=== PATIENT | female | born 1960 | race Caucasian/White ===

== ENCOUNTER 2018-09-12 10:13 | Inpatient (IN) ==
[2018-09-12 10:28] LABS: ALLEN TEST YES; BE 0.5 mmoll (-3.0-3.0); BLOOD TYPE ARTERIAL; HCO3-(ACT) 25.2 mmoll (20.0-26.0); METHB 1.1 % (0.0-1.5); O2(CT) 17.3 mL/dL (15.0-23.0); O2HB 93.8 % (95.0-99.0); PCO2(98.6) 41 mmHg (35-45); PO2(98.6) 122 mmHg (60-100); SAMPLE BLOOD; SAO2 98.6 % (95.0-100.0)
[2018-09-12 10:29] LABS: MODALITY BI PAP
--- NOTE | 2018-09-12 10:44 | Diag Imaging Result Doc PS360 ---
EXAM: CHEST-1 VIEW HISTORY: sob TECHNIQUE: Chest single view COMPARISON: 10/09/2017 FINDINGS: The lungs are well expanded. The heart is not enlarged. The vessels are distended. There are no infiltrates. No effusion identified. IMPRESSION: Pulmonary edema Electronically signed by Esdras Lares 09/12/2018 10:42 AM
--- NOTE | 2018-09-12 10:45 | EKG Report ---
Test Performed on : 09/12/2018 10:20:09 AM Test Reason : sob Blood Pressure : / mmHG Vent. Rate : 109 BPM Atrial Rate : 109 BPM P-R Int : 158 ms QRS Dur : 102 ms QT Int : 486 ms P-R-T Axes : 090 075 032 degrees QTc Int : 654 ms Sinus tachycardia. Nonspecific ST and T wave abnormality Abnormal ECG When compared with ECG of 09-OCT-2017 08:51, premature supraventricular complexes. are no longer present Vent. rate has increased BY 49 BPM RSR' pattern in V1 is no longer present Non-specific change in ST segment in Lateral leads Nonspecific T wave abnormality now evident in Lateral leads QT has lengthened Unconfirmed Result
[2018-09-12 10:56] LABS: BASO# 0.02 X1000 (0.0-0.2); BASO% 0.1 % (0.0-0.8); EOS# 0.07 X1000 (0.0-0.7); EOS% 0.4 % (0.0-10.0); HEMATOCRIT 40.4 % (37.0-47.0); HEMOGLOBIN 12.9 g/dL (12.0-16.0); IMM GRAN# 0.09 X1000 (0.0-0.04); IMM GRAN% 0.5 % (0.0-0.5); LYMPH% 5.6 % (20.5-51.1); MCH 27.3 PG (27-31); MCHC 31.9 g/dL (33-37); MCV 85.6 FL (81-99); MONO# 0.81 X1000 (0.11-0.59); MONO% 4.5 % (1.7-9.3); MPV 10.6 FL (7.4-10.4); NEUT# 15.88 X1000 (1.4-6.5); NEUT% 88.9 % (42.2-75.2); PLT 303 X1000 (130-400); RBC 4.72 XMIL (4.2-5.4); RDW 16.4 % (11.5-14.5); WBC 17.87 X1000 (4.8-10.8)
[2018-09-12 11:21] LABS: AGAP 14; ALB/GLOB RATIO 1.2; ALBUMIN 3.8 g/dL (3.5-5.0); ALKALINE PHOSPHATASE 109 U/L (32-104); BUN 11 mg/dL (8-22); CALCIUM 9.1 mg/dL (8.8-10.2); CHLORIDE 99 mmol/L (98-107); COSMO 282; CREATININE 0.9 mg/dL (0.5-0.9); ESTIMATED GFR > 60; GLUCOSE 187 mg/dL (70-104); GOT 9 U/L (10-30); GPT 11 U/L (10-36); POTASSIUM 3.7 mmol/L (3.5-5.1); SODIUM 139 mmol/L (136-145); TCO2 26 mmol/L (25-35); TOTAL BILIRUBIN 0.48 mg/dL (0.20-1.00); TOTAL PROTEIN 6.9 g/dL (6.3-8.3)
[2018-09-12 11:23] LABS: EOS 1 % (1-10); LYMPHS 6 % (21-51); MONO 5 % (1-9); SEGS 88 % (42-75)
[2018-09-12 11:49] LABS: URINE SOURCE CATH
[2018-09-12 11:57] LABS: BILIRUBIN URINE NEGATIVE (NEGATIVE); BLOOD URINE NEGATIVE (NEGATIVE); COLOR YELLOW; GLUCOSE URINE NEGATIVE (NEGATIVE); KETONE URINE NEGATIVE (NEGATIVE); LEUKOCYTES URINE NEGATIVE (NEGATIVE); NITRITE URINE NEGATIVE (NEGATIVE); PH URINE 5.5; PROTEIN URINE TRACE mg/dL (NEGATIVE); SP GRAVITY URINE 1.004; TURBIDITY URINE CLEAR (CLEAR); UROBILINOGEN URINE NORMAL (NORMAL)
[2018-09-12 11:58] LABS: UR EPITHELIAL CELLS <10 /HPF (<10); URINE BACTERIA NEGATIVE /HPF; URINE RBC <10 /HPF (<10); URINE WBC <10 /HPF (<10)
[2018-09-12 12:22] LABS: INR 1.03; PROTIME 14.3 Seconds (11.0-16.0)
[2018-09-12] MEDS ORDERED: ROCEPHIN 1 GM in NS 50 ML IV ONE (12:22)
[2018-09-12 12:23] LABS: PTT 28.3 Seconds (22.3-41.8)
[2018-09-12] MEDS ORDERED: LEVAQUIN 500 MG/D5W 500 MG/100 ML IVPB IV ONE (12:40)
[2018-09-12] MEDS ORDERED: LASIX IV ONE (12:56)
--- NOTE | 2018-09-12 12:58 | PROVIDER DOCUMENTATION ---
This chart was entered by Martha Ga Scribe, acting as scribe for Justin Crum MD. HPI-Respiratory General - General Chief Complaint: Shortness of Breath Stated Complaint: difficulty breathing Time Seen by Provider: 09/12/18 10:45 Source: patient Allergies/Adverse Reactions: Patient Allergies Allergy/AdvReac Type Severity Reaction Status Date / Time ESCOBAR Inhibitors Allergy ANAPHYLAXIS Verified 09/12/18 10:57 codeine [Codeine] AdvReac Intermediate NAUSEA/VOMI Verified 09/12/18 10:57 TING ceftriaxone [From Rocephin] AdvReac RASH Verified 09/12/18 12:31 nylon sutures AdvReac RASH Uncoded 09/12/18 10:57 Home Medications: Home Medication List Medication Instructions Recorded Confirmed Last Taken Type Clopidogrel Bisulfate [Plavix] 75 mg PO DAILY 03/05/12 10/10/17 10/10/17 05:00 History Furosemide [Lasix] 40 mg PO DAILY 03/05/12 10/10/17 10/09/17 09:00 History Omeprazole 20 mg PO DAILY@0700 03/05/12 10/09/17 10/10/17 05:00 History Potassium Chloride E.r. [Klor-Con] 10 meq PO DAILY 03/05/12 10/09/17 10/10/17 05:00 History Spironolactone [Aldactone] 25 mg PO DAILY 03/05/12 10/09/17 10/10/17 05:00 History Clonazepam 1 mg PO BID PRN PRN 04/23/14 10/10/17 10/08/17 21:00 History Ranolazine E.r. [Ranexa] 1,000 mg PO BID 04/23/14 10/09/17 10/10/17 05:00 History Glimepiride 2 mg PO DAILY 07/23/16 10/10/17 10/09/17 09:00 History Atorvastatin Calcium 40 mg PO HS 10/09/17 10/09/17 10/09/17 21:00 History Budesonide/Formoterol Fumarate 10.2 gm IH DAILY 10/09/17 10/09/17 10/10/17 05:00 History [Symbicort 160-4.5 Mcg Inhaler] Colesevelam HCl [Welchol] 625 mg PO BID 10/09/17 10/09/17 10/10/17 05:00 History Fexofenadine HCl 180 mg PO HS 10/09/17 10/09/17 10/09/17 21:00 History Gabapentin 2 cap PO DAILY 10/09/17 10/09/17 10/10/17 05:00 History Insulin Lispro [Humalog Kwikpen 0 unit SQ DIRECTED 10/09/17 10/10/17 10/08/17 History U-100] Metoprolol [Lopressor] 100 mg PO BID 10/09/17 10/09/17 10/10/17 05:00 History Nitroglycerin 0.4 mg SL PRN PRN 10/09/17 10/10/17 10/07/17 History Amlodipine [Norvasc] 5 mg PO DAILY #30 tablet 10/10/17 Unknown Rx - History of Present Illness-Resp Nature of Presenting Problem: Patient is a 58 year old female who presents to the ED via EMS with shortness of breath that started 3 days ago. EMS reports patient's O2 sat was 70% on their arrival. Patient denies chest pain. Quality of Pain: reports: tightness Severity in ED: reports: moderate Onset/Duration: reports: 3 days ago Timing: reports: still present, getting worse Cough Quality/Degree: reports: no cough Current Respiratory Medication Therapy: Initiated see nurses note Modifying Factors: improves with: nothing Associated Symptoms: reports: shortness of breath Similar Symptoms Previously?: Yes Recently seen or treated by another doctor?: No Review of Systems - Adult - REVIEW OF SYSTEMS - ADULT ROS:: limited per condition Constitutional: reports: no symptoms reported. denies: chills, fever, fatique Eyes: reports: no symptoms reported Ears, Nose, Mouth & Throat: reports: no symptoms reported Cardiovascular: reports: no symptoms reported. denies: chest pain, irregular heart rate, palpitations Respiratory: reports: see HPI, shortness of breath. denies: cough, wheezing Gastrointestinal: reports: no symptoms reported Genitourinary: reports: no symptoms reported Musculoskeletal: reports: no symptoms reported Integumentary: reports: no symptoms reported Neurological: reports: no symptoms reported Psychiatric: reports: no symptoms reported Endocrine: reports: no symptoms reported Hematologic/Lymphatic: reports: no symptoms reported Allergic/Immunologic: reports: no symptoms reported All Other Systems: Reviewed and Negative Past History - Adult - PAST MEDICAL HISTORY-ADULT Review of Records: reports: Nursing Assessment Review, Medications Reviewed, Social history reviewed & non-contributory. Major Childhood Illnesses: reports: denies history Cardiovascular: reports: cardiac disease (cardiac disorder), HTN, hyperlipidemia , NV Respiratory: reports: bronchitis (chronic), COPD, pneumonia, sleep apnea Gastrointestinal: reports: GERD Obstetrical/Gynecological: reports: denies history Genitourinary: reports: denies history Musculoskeletal: reports: other (bone disease) Neurological: reports: TIA Endocrine/Immune: reports: Diabetes Other Conditions: reports: denies history - PRIOR SURGERIES/PROCEDURES Surgical/Procedure History: reports: hysterectomy, , tonsillectomy, o ther (T & A) - IMMUNIZATION STATUS Childhood Immunizations: NUTD, See Nurse Assessment Flu Vaccine: See Nurse Assessment - FAMILY HISTORY Family History: reviewed, not pertinent - SOCIAL HISTORY Smoking: cigarettes, greater than 1 pack/day Provider spent 3-5 mins advising pt. on dangers of tobacco.: Discussed manners to quit use, and f/u contacts for add'l counseling. Substance Use: denies Physical Exam-General - PHYSICAL EXAM-ADULT Initial Vital Signs Reviewed: Yes - CONSTITUTIONAL General Appearance: alert, no apparent distress, obese. negative: lethargic - RESPIRATORY Respiratory: chest non-tender, lungs clear, normal breath sounds. negative: crackles, stridor - CARDIOVASCULAR Cardiovascular: normal peripheral pulses, tachycardia. negative: systolic murmur - MUSCULOSKELETAL Extremity: other (1 + pitting edema to bilateral lower extremities). negative: deformity, erythema - SKIN Integumentary: normal color, normal turgor, warm/dry. negative: cyanosis, ecchymosis, erythema - NEUROLOGIC Neurologic: grossly normal. negative: aphasia, facial droop - PSYCHIATRIC Psych/Mental Status: normal mood/affect, oriented x 3. negative: anxious - HEART Score HEART Score: History: Slightly Suspicious HEART Score: ECG: Non-Specific Repolarization Disturbance/LBBB/PM HEART Score: Age: 45-65 Years HEART Score: Risk Factors for Atherosclerotic Disease: 1 or 2 Risk Factors HEART Score: Troponin: < or = Normal Limit Total HEART Score:: 3 Progress - PLAN OF CARE/RESULTS Progress/Plan/Lab Results: Vital Signs - 8 hr 09/12/18 10:20 09/12/18 10:21 09/12/18 10:25 Temperature Pulse Rate 149 H Respiratory Rate 32 H Blood Pressure 157/106 O2 Sat by Pulse Oximetry 93 L 95 92 L 09/12/18 10:30 09/12/18 10:35 09/12/18 10:40 Temperature 101.1 F H Pulse Rate 105 H 149 H 108 H Respiratory Rate 28 H 32 H 24 Blood Pressure 157/106 O2 Sat by Pulse Oximetry 98 93 L 99 09/12/18 10:41 09/12/18 10:50 Temperature Pulse Rate 107 H 98 H Respiratory Rate 25 H 22 Blood Pressure 115/85 O2 Sat by Pulse Oximetry 98 97 Laboratory Results - last 24 hr 09/12/18 09/12/18 09/12/18 10:20 10:38 10:38 WBC 17.87 H RBC 4.72 Hgb 12.9 Hct 40.4 MCV 85.6 MCH 27.3 MCHC 31.9 L RDW Std Deviation 16.4 H Plt Count 303 MPV 10.6 H Immature Gran % (Auto) 0.5 Neut % (Auto) 88.9 H Lymph % (Auto) 5.6 L Baker % (Auto) 4.5 Eos % (Auto) 0.4 Baso % (Auto) 0.1 Immature Gran # (Auto) 0.09 H Neut # (Auto) 15.88 H Lymph # (Auto) 1.00 L Baker # (Auto) 0.81 H Eos # (Auto) 0.07 Baso # (Auto) 0.02 Segmented Neutrophils 88 H Lymphocytes 6 L Monocytes 5 Eosinophils 1 PT INR PTT (Actin FS) Specimen Type ARTERIAL Sample Site R RADIAL pH 7.40 pCO2 41 pO2 122 H HCO3 25.2 Base Excess 0.5 Oxyhemoglobin 93.8 L ABG O2 Sat (Calculated) 17.3 ABG O2 Saturation 98.6 ABG Carboxyhemoglobin 3.90 H ABG Methemoglobin 1.1 Josiah Test YES A-a O2 Difference 540.0 Total Hemoglobin 13.0 Lactate 2.00 Blood Gas Modality BI PAP Vent Mode BIPAP FiO2 % 100.0 Inspiratory BiPAP 18.0 Expiratory BiPAP 5.0 Sodium Potassium Chloride Carbon Dioxide Anion Gap BUN Creatinine Estimated GFR/1.73 m2 BUN/Creatinine Ratio Glucose Calculated Osmolality Calcium Total Bilirubin AST ALT Alkaline Phosphatase Creatine Kinase Troponin T < 0.010 [id number]-Iwzcidljdxb Pept Total Protein Albumin Globulin Albumin/Globulin Ratio Plasma Lactate Urine Source Urine Color Urine Turbidity Urine pH Ur Specific [place] Urine Protein Ur Glucose (Stick) Ur Ketones (Stick) Urine Blood Urine Nitrite Urine Bilirubin Urobilinogen Dipstick Urine Leukocytes Urine WBC (Auto) Urine RBC (Auto) U Epithel Cells (Auto) Urine Bacteria (Auto) 09/12/18 09/12/18 09/12/18 10:38 10:38 10:38 WBC RBC Hgb Hct MCV MCH MCHC RDW Std Deviation Plt Count MPV Immature Gran % (Auto) Neut % (Auto) Lymph % (Auto) Baker % (Auto) Eos % (Auto) Baso % (Auto) Immature Gran # (Auto) Neut # (Auto) Lymph # (Auto) Baker # (Auto) Eos # (Auto) Baso # (Auto) Segmented Neutrophils Lymphocytes Monocytes Eosinophils PT INR PTT (Actin FS) Specimen Type Sample Site pH pCO2 pO2 HCO3 Base Excess Oxyhemoglobin ABG O2 Sat (Calculated) ABG O2 Saturation ABG Carboxyhemoglobin ABG Methemoglobin Josiah Test A-a O2 Difference Total Hemoglobin Lactate Blood Gas Modality Vent Mode FiO2 % Inspiratory BiPAP Expiratory BiPAP Sodium 139 Potassium 3.7 Chloride 99 Carbon Dioxide 26 Anion Gap 14 BUN 11 Creatinine 0.9 Estimated GFR/1.73 m2 > 60 BUN/Creatinine Ratio 12 Glucose 187 H Calculated Osmolality 282 Calcium 9.1 Total Bilirubin 0.48 AST 9 L ALT 11 Alkaline Phosphatase 109 H Creatine Kinase 34 Troponin T Swh-Z-Mmtepxlxalo Pept 751 H Total Protein 6.9 Albumin 3.8 Globulin 3.1 Albumin/Globulin Ratio 1.2 Plasma Lactate Urine Source Urine Color Urine Turbidity Urine pH Ur Specific [place] Urine Protein Ur Glucose (Stick) Ur Ketones (Stick) Urine Blood Urine Nitrite Urine Bilirubin Urobilinogen Dipstick Urine Leukocytes Urine WBC (Auto) Urine RBC (Auto) U Epithel Cells (Auto) Urine Bacteria (Auto) 09/12/18 09/12/18 09/12/18 10:38 10:38 11:40 WBC RBC Hgb Hct MCV MCH MCHC RDW Std Deviation Plt Count MPV Immature Gran % (Auto) Neut % (Auto) Lymph % (Auto) Baker % (Auto) Eos % (Auto) Baso % (Auto) Immature Gran # (Auto) Neut # (Auto) Lymph # (Auto) Baker # (Auto) Eos # (Auto) Baso # (Auto) Segmented Neutrophils Lymphocytes Monocytes Eosinophils PT 14.3 INR 1.03 PTT (Actin FS) 28.3 Specimen Type Sample Site pH pCO2 pO2 HCO3 Base Excess Oxyhemoglobin ABG O2 Sat (Calculated) ABG O2 Saturation ABG Carboxyhemoglobin ABG Methemoglobin Josiah Test A-a O2 Difference Total Hemoglobin Lactate Blood Gas Modality Vent Mode FiO2 % Inspiratory BiPAP Expiratory BiPAP Sodium Potassium Chloride Carbon Dioxide Anion Gap BUN Creatinine Estimated GFR/1.73 m2 BUN/Creatinine Ratio Glucose Calculated Osmolality Calcium Total Bilirubin AST ALT Alkaline Phosphatase Creatine Kinase Troponin T Vrj-S-Wzibemwkjij Pept Total Protein Albumin Globulin Albumin/Globulin Ratio Plasma Lactate 2.0 Urine Source CATH Urine Color YELLOW Urine Turbidity CLEAR Urine pH 5.5 Ur Specific [place] 1.004 Urine Protein TRACE A Ur Glucose (Stick) NEGATIVE Ur Ketones (Stick) NEGATIVE Urine Blood NEGATIVE Urine Nitrite NEGATIVE Urine Bilirubin NEGATIVE Urobilinogen Dipstick NORMAL Urine Leukocytes NEGATIVE Urine WBC (Auto) <10 Urine RBC (Auto) <10 U Epithel Cells (Auto) <10 Urine Bacteria (Auto) NEGATIVE Orders Category Date Time Status Cardiac Monitoring DIRECTED Care 09/12/18 11:46 Active [place] Insertion ORDERED Care 09/12/18 11:44 Active IV Insertion ORDERED Care 09/12/18 11:46 Completed Notify MD of + Sepsis Screen NOW Care 09/12/18 11:46 Active Notify Physician As Ordered Care 09/12/18 11:46 Active CHEST-1 VIEW [RAD] Stat Exams 09/12/18 10:14 Completed ABG [RESP] Routine Lab 09/12/18 10:20 Completed BLOOD CULTURE [BLDCUL] Stat Lab 09/12/18 10:38 Results BLOOD CULTURE [BLDCUL] Stat Lab 09/12/18 12:22 Ordered BNP [PRO B-NATRIURETIC PEPTIDE] Stat Lab 09/12/18 10:38 Completed CBC WITH ELECTRONIC DIFF [HEME] Stat Lab 09/12/18 10:38 Completed CK PROFILE [SP CHEM] Stat Lab 09/12/18 10:38 Completed COMPREHENSIVE METABOLIC PANEL [CHEM] Stat Lab 09/12/18 10:38 Completed LACTATE, PLASMA [CHEM] Lab 09/12/18 15:00 Uncollected LACTATE, PLASMA [CHEM] Lab 09/12/18 18:00 Uncollected LACTATE, PLASMA [CHEM] Q3H Lab 09/12/18 10:38 Completed PROTIME WITH INR [COAG] Stat Lab 09/12/18 10:38 Completed PTT [COAG] Stat Lab 09/12/18 10:38 Completed TROPONIN T Stat Lab 09/12/18 10:38 Completed URINALYSIS [URINALYSIS] Stat Lab 09/12/18 11:40 Completed CefTRIAXONE [Rocephin] 1 gm Med 09/12/18 12:22 Discontinued 0.9% Sodium Chloride Inj [Ns] 50 ml IV NOW Furosemide [Lasix] Med 09/12/18 12:56 Once 40 mg IV NOW ONE Levofloxacin 500 mg/D5w [Levaquin 500 mg/D5w] Med 09/12/18 12:40 Active 500 mg in 100 ml IV NOW Oxygen Device Stat Oth 09/12/18 11:46 Active EKG [EKG] Stat Ther 09/12/18 10:13 Draft Result Diagrams: 09/12/18 10:38 09/12/18 10:38 - EKG 1 Time of EKG reading by physician:: 10:20 EKG Read and Signed by:: Justin Crum EKG Interpretation (*Must complete 3 of following elements*): Abnormal Rate: 109 Rhythm: sinus tachycardia ME Interval: normal Comments: nonspecific ST and T wave abnormality. - XRAY 1 XRAY Study: Chest Impression: See EMR Report ( Signed EXAM: CHEST-1 VIEW HISTORY: sob TECHNIQUE: Chest single view COMPARISON: 10/09/2017 FINDINGS: The lungs are well expanded. The heart is not enlarged. The vessels are distended. There are no infiltrates. No effusion identified. IMPRESSION: Pulmonary edema Electronically signed by Esdras Lares 09/12/2018 10:42 AM 09/12/18 1042 Interpreting Physician: Esdras Lares MD Dictated Date/Time: 09/12/18 1041 cc: Justin Crum MD;) - CONSULTS/PCP/HOSPITALIST Notification #1 *Consult/PCP/Hospitalist*: IRA Mayes for Hospitalist Time Discussed: 12:50 Reason/Comments: Dr. Crum consulted with Sugey about patient. Consult Disposition: Will see in ED, Admit Departure - Departure Date of Disposition Decision: 09/12/18 Time of Disposition Decision: 12:51 DIAGNOSIS: CHF (congestive heart failure), Pneumonia Disposition: ADMITTED INPATIENT 09 Certified Medical Emergency: Emergent Condition: Stable Referrals and Follow-Ups: Aldair Galvan MD [Primary Care Provider] - - Critical Care Note This patient required my direct & personal management of CC.: Yes Attestation - Physician/ JEFF Attestation Patient care was provided by Advanced Practice Provider:: No The physician spent face to face time with patient:: Yes Advanced Practice Provider documentation review:: Supervising physician onsite and consulted in the evaluation and care of this patient. The physician did have a face to face encounter with the patient. This chart was documented by the indicated scribe, (Martha Ga Scribe) and accurately reflects the services I performed and decisions made by me, Justin Crum MD, as attested by the provider's signature.
[2018-09-12] MEDS ORDERED: ALLEGRA PO PRN (13:56)
[2018-09-12] MEDS ORDERED: ROCEPHIN 1 GM in NS 50 ML IV SCH (13:56)
[2018-09-12] MEDS ORDERED: LASIX IV SCH (13:56)
[2018-09-12] MEDS ORDERED: NITROGLYCERIN SL PRN (13:56)
[2018-09-12] MEDS ORDERED: TYLENOL PO PRN (13:56)
[2018-09-12] MEDS ORDERED: HUMALOG SUBQ ONE (13:56)
[2018-09-12] MEDS ORDERED: ZOFRAN IV PRN (13:56)
[2018-09-12] MEDS: SOLU-MEDROL IV SCH ×2 (14:20→21:04)
--- NOTE | 2018-09-12 14:43 | HISTORY AND PHYSICAL ---
PRIMARY CARE PHYSICIAN: Dr. Galvan. CHIEF COMPLAINT: Shortness of breath over the past 3 days that had progressively worsened despite her home O2. HISTORY OF PRESENTING ILLNESS: This is a 58-year-old female, who presents to [facility] via EMS with shortness of breath that started 3 days ago and progressively worsened despite her O2. When EMS arrived, they reported that her O2 saturation was 70% on their arrival. When she arrived to the emergency room, she was satting 93% and was placed on BiPAP. Her white blood cell count was noted to be 17.87. Her proBNP was 751. Chest x- ray showed pulmonary edema. She states that she wears O2 at 5 to 6 L via nasal cannula at home, BiPAP during the day as needed and CPAP at night, but she does continue to be a pack-a-day smoker, but has decreased from 2 packs that was noted per her medical record in 2017, but she has been a smoker for approximately 50+ years. So, she will be admitted to [facility] for further evaluation and treatment. PAST MEDICAL HISTORY: CVA, COPD, diabetes type 2, CHF, hypertension and hypothyroidism. PAST SURGICAL HISTORY: , hysterectomy and tonsillectomy. FAMILY HISTORY: Reviewed and noncontributory. SOCIAL HISTORY: She currently lives with family, is a pack a day smoker, and has been a smoker since she was 11 years old, so for about 50 years. Denies any alcohol or illicit drug use. ALLERGIES: ESCOBAR inhibitors, codeine, ceftriaxone, and nylon sutures. HOME MEDICATIONS: She takes Knox 7.5 one p.o. q. 6 hours p.r.n., Lasix 40 mg p.o. p.r.n. will be held, Humalog quick pen sliding scale will be held, Norvasc 5 mg p.o. daily, aspirin 325 mg p.o. daily, Symbicort 160/4.5 mcg inhaler daily, clonazepam 1 mg p.o. b.i.d. p.r.n., Plavix 75 mg p.o. daily, Welchol 625 mg p.o. b.i.d., fexofenadine 180 mg p.o. p.r.n., gabapentin 300 mg 2 capsules p.o. daily, glimepiride 2 mg p.o. daily, Bevespi Aerosphere inhaler 1 puff inhalation daily, Apresoline 25 mg p.o. b.i.d., metformin 500 mg p.o. b.i.d., Lopressor 100 mg p.o. b.i.d., Singulair 10 mg p.o. daily, nitroglycerin 0.4 mg sublingually p.r.n., omeprazole 40 mg p.o. daily, potassium 10 mEq p.o. daily, Ranexa 500 mg p.o. b.i.d., sertraline 50 mg p.o. t.i.d. and Aldactone 25 mg p.o. daily. LABORATORY DATA: Showed a white blood cell count of 17.87, hemoglobin 12.9, hematocrit 40.4, platelets 303. PT and INR of 14.3 and 1.03. ABG with a pH of 7.40, pCO2 of 41, PO2 122, bicarbonate 25.2, and this is on BiPAP. Sodium 139, potassium 3.7, chloride 99, CO2 26, BUN of 11, creatinine 0.9, glucose 187. ProBNP of 751. Troponin was less than 0.010. Plasma lactate of 2. Urinalysis was negative. IMAGING STUDIES: Chest x-ray showed pulmonary edema. EKG showed sinus tachycardia at 109. REVIEW OF SYSTEMS: She denies any fever, chills, blurred vision, dizziness, chest pain. She has had a nonproductive cough, shortness of breath. Denies any abdominal pain, constipation, diarrhea, burning or hurting with urination. PHYSICAL EXAMINATION: VITAL SIGNS: On arrival she had a pulse of 149, respirations were 32, blood pressure 157/106. She was satting 92 to 93 percent on BiPAP. GENERAL: This is a 58-year-old female, who is lying in the bed and answers questions appropriately. HENT: Normocephalic, atraumatic. Normal ENT inspection. Oropharynx and nares are clear. EYES: Pupils are equal, round, reactive to light and accommodation. Extraocular movements are intact. NECK: Normal inspection. Normal range of motion. LUNGS: With decreased breath sounds throughout entire posterior lung anglin. HEART: With regular rate and rhythm. No murmurs, rubs, or gallops. She was noted when she arrived to have 1+ pitting edema to bilateral lower extremities, but currently she has nonpitting edema to bilateral lower extremities. ABDOMEN: Soft, nontender, nondistended. Bowel sounds are present x4 quadrants. MUSCULOSKELETAL: She has 5/5 strength x4 extremities. NEUROLOGICAL: The cranial nerves 2-12 appear grossly intact. Her heart score is noted to be a 3. ASSESSMENT: 1. Acute chronic obstructive pulmonary disease exacerbation. 2. Acute respiratory failure, hypoxemic. 3. An acute congestive heart failure exacerbation. 4. Leukocytosis. 5. Tobacco abuse. PLAN: She is being admitted to the [facility] unit and placed on telemetry. I placed her on a diabetic diet, pattern blood sugars with sliding scale insulin. Placed her on DuoNebs q. 4 hours, Lasix 40 mg IV q. 12 hours, azithromycin 500 mg IV q. 24 hours, Levaquin 500 mg IV q. 24 and she received that first dose in the emergency room, Solu-Medrol 60 mg IV q. 6 hours, and we will wean as she improves. Continue home medications as previously identified. Further orders after seen by attending and will recheck a CBC, BMP in the a.m. Discharge time: 35 minutes Dictated by IRA Jarrell for Robles Rod MD cc: IRA Jarrell MD Akram Haggag, MD [facility]
[2018-09-12] MEDS ORDERED: ZITHROMAX 500 MG/NS 500 MG/250 ML IVPB IV SCH (15:30)
[2018-09-12] MEDS: DUONEB (A & A) INH SCH ×3 (15:47→23:15)
[2018-09-12] MEDS: HUMALOG SUBQ SCH ×2 (16:49→21:00)
[2018-09-12] MEDS ORDERED: ZOLOFT PO SCH (17:00)
[2018-09-12] MEDS ORDERED: APRESOLINE PO SCH (21:00)
[2018-09-12] MEDS ORDERED: GLUCOPHAGE PO SCH (21:00)
[2018-09-12] MEDS: NICODERM PATCH TD SCH (21:03)
[2018-09-12] MEDS: LOPRESSOR PO SCH (21:08)
[2018-09-12] MEDS: RANEXA PO SCH (21:54)
[2018-09-12] MEDS: WELCHOL PO SCH (21:55)
[2018-09-12] MEDS: NEURONTIN PO SCH (21:55)
[2018-09-13] MEDS: HUMALOG SUBQ SCH ×5 (01:12→22:38)
[2018-09-13] MEDS: SOLU-MEDROL IV SCH ×3 (01:13→22:39)
[2018-09-13] MEDS: KLONOPIN PO PRN ×2 (01:34→13:54)
[2018-09-13] MEDS: DUONEB (A & A) INH SCH ×6 (03:47→23:47)
[2018-09-13] MEDS ORDERED: LASIX IV SCH (06:00)
[2018-09-13 06:05] LABS: BASO# 0.01 X1000 (0.0-0.2); BASO% 0.1 % (0.0-0.8); HEMATOCRIT 37.1 % (37.0-47.0); HEMOGLOBIN 11.6 g/dL (12.0-16.0); IMM GRAN# 0.03 X1000 (0.0-0.04); IMM GRAN% 0.2 % (0.0-0.5); LYMPH% 5.8 % (20.5-51.1); MCH 26.9 PG (27-31); MCHC 31.3 g/dL (33-37); MCV 86.1 FL (81-99); MONO# 0.14 X1000 (0.11-0.59); MONO% 1.2 % (1.7-9.3); MPV 10.5 FL (7.4-10.4); NEUT# 11.28 X1000 (1.4-6.5); NEUT% 92.7 % (42.2-75.2); PLT 270 X1000 (130-400); RBC 4.31 XMIL (4.2-5.4); RDW 16.1 % (11.5-14.5); WBC 12.16 X1000 (4.8-10.8)
[2018-09-13] MEDS: PRILOSEC PO SCH (06:24)
[2018-09-13 06:42] LABS: CALCIUM 8.9 mg/dL (8.8-10.2); CREATININE 1.2 mg/dL (0.5-0.9); POTASSIUM 4.1 mmol/L (3.5-5.1)
[2018-09-13 06:59] LABS: LYMPHS 8 % (21-51); SEGS 92 % (42-75)
[2018-09-13] MEDS ORDERED: LANTUS INSULIN SUBQ ONE (08:00)
--- NOTE | 2018-09-13 08:01 | ECHO REPORT ---
ORDER DATE: 09/12/2018 INTERPRETING PHYSICIAN: Dr. Hawkins REQUESTING PHYSICIAN: Emergency Room Department CLINICAL INDICATIONS: This is a 58-year-old female with CHF exacerbation suspected. Optison was added to the study to opacify the left ventricular chamber. This study was very difficult. M-Mode measurements could not be obtained. M-MODE MEASUREMENTS: Right ventricle: cm. Left ventricle end diastole: cm. Left ventricle end systole: cm. Posterior wall: cm. Interventricular septum: cm. Left atrium: cm. Aortic root: cm. SUMMARY OF 2-DIMENSIONAL IMAGIN. The left ventricle probably has normal function. I believe there is paradoxical contractility of the interventricular septum. 2. The right ventricle is probably enlarged, and I suspect that the pulmonary systolic pressure is significantly elevated. There is a prominent epicardial fat pad. 3. With contrast, the ejection fraction of the left ventricle is probably in the order of 65% to 70%. 4. The mitral valve shows a Doppler pattern that is unremarkable. The E/A ratio is 0.9. 5. The aortic valve also has an unremarkable Doppler pattern. 6. There is probably no evidence of aortic stenosis. 7. The Doppler pattern of the tricuspid valve suggests that the pulmonary systolic pressure is elevated at least 77 mmHg. 8. Inferior vena cava is dilated. CONCLUSIONS: 1. In summary, this study was really very difficult. The left ventricular systolic function is probably hyperdynamic. There is paradoxical contractility of the interventricular septum, probably related to pulmonary hypertension and enlargement of the right ventricle. 2. There is moderate concentric LVH. 3. The mitral and aortic valves are probable unremarkable. 4. Please evaluate this patient for acute pulmonary embolism and acute respiratory decompensation from noncardiac causes. cc: MD Amber Bingham CRNP
--- NOTE | 2018-09-13 08:06 | PROGRESS NOTE ---
DATE: 09/13/2018 SUBJECTIVE: This patient is still using the BiPAP machine. She is still short of breath and tired. We have a negative balance of 4.8 L. The creatinine increased from 0.9 to 1.2, but this seems to be her baseline. I have decreased the dose of the furosemide from 40 twice a day to 40 daily. White blood cell decreased from 17 to 12, and the blood sugar has been in the 300s so I will start this patient on long-acting insulin and sliding scale insulin. OBJECTIVE: Vital Signs: Temperature 96.5 degrees, pulse 60, respiratory rate 24, blood pressure 89/57, and oxygen saturation 96 on the BiPAP machine. This is at 4:00 in the morning. HEENT: Head normocephalic. No trauma. PERRLA. Neck: Supple. I can't see JVD because of her neck size. Central trachea. Chest: Decreased breath sounds globally. Prolonged expiratory phase with some crepitus at the bases. I do not hear any wheezing today. Abdomen: Soft. Obese. Protuberant. Nontender. Nondistended. No hepatosplenomegaly. Extremities: Trace pedal edema. No clubbing. No cyanosis. Neurological: The patient is alert and oriented x3. No focal deficits. LABORATORY: WBC 12.1, hemoglobin 11.6, hematocrit 37.1, and platelets 270,000. Sodium 133, potassium 4.1, chloride 96, bicarbonate 26, BUN 20, creatinine 1.2 glucose 352, and calcium 8.9. ASSESSMENT AND PLAN: 1. COPD exacerbation. This patient has been placed on the BiPAP machine, pending ABGs today and x-ray. I have consulted Pulmonary Department. This patient is receiving steroids, which I have decreased from 60 q.6 hours to 40 q. 12 hours. Probably tomorrow, I will decrease it even more. She has no wheezing today. Pulmonary Department has been consulted. We will continue with the same management. 2. Acute on chronic hypoxemic respiratory failure. This patient has been getting oxygen at home. For now, we will continue with the same management per #1. 3. Possible acute congestive heart failure exacerbation, likely diastolic. Pending echocardiogram. We have a negative balance of 4.8 L. She had pulmonary edema yesterday, pending x-ray today. I have decreased the frequency of the Lasix. 4. Leukocytosis. This patient has been placed on antibiotics. The leukocyte count decreased from 17 to 12. We will continue with the same treatment. 5. Tobacco abuse. This patient has been highly advised against tobacco use. I will continue with daily cessation education. Currently, she is still smoking. 6. Morbid obesity with a body mass index of 46.2, aware. Diet and exercise/physical activity has been discussed. 7. Type 2 diabetes. I will ask for a hemoglobin A1c. Her blood sugar increased to the 300s, so I will put this patient on long-acting insulin while she is on steroids which I have decreased. CRITICAL CARE TIME: 35 minutes. cc: Robles Rod MD
--- NOTE | 2018-09-13 08:29 | Diag Imaging Result Doc PS360 ---
CHEST-PORTABLE - 09/13/2018 INDICATION: SOB COMPARISON: 09/12/2018 FINDINGS: Stable cardiomegaly and pulmonary vascular congestion. There is probably pulmonary artery hypertension. There is some stable minimal infiltrate or atelectasis in the lung bases, at the lateral costophrenic angles. IMPRESSION: No change from prior exams. Electronically signed by Julio Mathew 09/13/2018 8:26 AM
[2018-09-13 08:55] LABS: ALLEN TEST YES; BLOOD TYPE ARTERIAL; HCO3-(ACT) 25.6 mmoll (20.0-26.0); METHB 0.9 % (0.0-1.5); O2(CT) 16.4 mL/dL (15.0-23.0); O2HB 93.3 % (95.0-99.0); PO2(98.6) 74 mmHg (60-100); SAMPLE BLOOD; SAO2 96.1 % (95.0-100.0); THB 12.5 g/dL (11.5-17.4); pH(98.6) 7.34 (7.35-7.45)
[2018-09-13 08:58] LABS: MODALITY BI PAP; PCO2(98.6) 51 mmHg (35-45)
[2018-09-13] MEDS ORDERED: NEURONTIN PO SCH (09:00)
[2018-09-13] MEDS ORDERED: NORVASC PO SCH (09:00)
[2018-09-13] MEDS: SYMBICORT 160/4.5 MICROGM INHALER INH SCH (09:00)
[2018-09-13] MEDS: ZOLOFT PO SCH (09:59)
[2018-09-13] MEDS: AMARYL PO SCH (10:00)
[2018-09-13] MEDS: LOPRESSOR PO SCH ×2 (10:00→22:38)
[2018-09-13] MEDS: ASPIRIN PO SCH (10:00)
[2018-09-13] MEDS: KLOR-CON PO SCH (10:00)
[2018-09-13] MEDS: SINGULAIR PO SCH (10:00)
[2018-09-13] MEDS: RANEXA PO SCH ×2 (10:00→22:39)
[2018-09-13] MEDS: PLAVIX PO SCH (10:00)
[2018-09-13] MEDS: WELCHOL PO SCH ×2 (10:00→22:39)
[2018-09-13] MEDS: ALDACTONE PO SCH (10:01)
[2018-09-13] MEDS: PATIENT'S OWN MED INH SCH (10:06)
[2018-09-13] MEDS: LASIX IV SCH (10:13)
[2018-09-13] MEDS: LEVAQUIN 500 MG/D5W 500 MG/100 ML IVPB IV SCH (13:53)
--- NOTE | 2018-09-13 20:51 | CONSULTATION ---
DATE OF CONSULTATION: 09/13/2018 CHIEF COMPLAINT: Shortness of breath, respiratory failure. HISTORY OF PRESENT ILLNESS: This is a 58-year-old female who has had worsening shortness of breath over the past few days. Her oxygen has been desaturating into the 70s despite using supplemental O2. Recent chest x-ray revealed stable cardiomegaly and pulmonary vascular congestion; stable minimal infiltration or atelectasis in the lung bases. REVIEW OF SYSTEMS: A 10-point review of systems was conducted and the pertinence is listed within the HPI, otherwise noncontributory. PAST MEDICAL HISTORY: CVA, COPD, diabetes type 2, congestive heart failure, hypertension, hypothyroidism. PAST SURGICAL HISTORY: , hysterectomy and tonsillectomy. FAMILY HISTORY: Noncontributory. SOCIAL HISTORY: Lives with family. [place]-ide smoker, has smoked for approximately 50 years. Denies alcohol or illicit drug use. ALLERGIES: ESCOBAR inhibitors, codeine, ceftriaxone and nylon sutures. MEDICATIONS: Please see home reconciliation list. LABORATORY DATA: White blood cells 12.16, red blood cells 4.31, hemoglobin 11.6, hematocrit 37.1. PH 7.34, pCO2 is 51, pO2 is 74, HCO3 is 25.6, base excess 1.0, oxyhemoglobin 93.3. Sodium 133, potassium 4.1, chloride 96, carbon dioxide 26, BUN 20, creatinine 1.2, glucose 352. DIAGNOSTIC DATA: As mentioned in the HPI. PHYSICAL EXAMINATION: Vital signs: O2 saturation 99% with venturi mask at 50% oxygen flow rate. Temperature is 97 degrees, pulse rate 52, respiratory rate 18, blood pressure 131/59. General: This is a 58-year-old obese female sitting up in bed, with family at bedside. Appears to be in no acute distress at the present time, with O2 per venturi mass in place at 50% flow rate. HEENT: Head is atraumatic, normocephalic. Pupils equal, round and reactive. Mucous membranes pink and moist. Neck is supple. Respiratory: Decreased breath sounds throughout entire lung anglin. Nonlabored. Cardiovascular: Regular rate and rhythm. No murmurs, rubs or gallops. Nonpitting edema in the extremities bilaterally. Abdomen soft, nontender, nondistended. Bowel sounds present in all 4 quadrants. Neurological: Alert and oriented x3. ASSESSMENT AND PLAN: 1. Chronic obstructive pulmonary disease exacerbation. Will continue bronchodilators and steroids 2.Obstructive sleep apnea- She has been placed on a bilevel positive airway pressure machine 3. Baymr-gv-ehvonjl hypoxemic respiratory failure. Continue oxygen. 4. Acute congestive heart failure exacerbation. She is receiving Lasix and has an echocardiogram scheduled. 5. Leukocytosis. Continue antibiotics. 6. Morbid obesity- aware Dictated by IRA Grove for Abdelrahman Recinos MD cc: IRA Grove MD [facility]
[2018-09-13] MEDS: NICODERM PATCH TD SCH (22:39)
[2018-09-13] MEDS: NEURONTIN PO SCH (22:39)
[2018-09-14] MEDS: HUMALOG SUBQ SCH ×6 (01:05→21:01)
[2018-09-14 03:28] LABS: ALLEN TEST YES; BE 2.1 mmoll (-3.0-3.0); BLOOD TYPE ARTERIAL; HCO3-(ACT) 26.6 mmoll (20.0-26.0); METHB 0.6 % (0.0-1.5); O2(CT) 14.5 mL/dL (15.0-23.0); O2HB 96.9 % (95.0-99.0); PO2(98.6) 107 mmHg (60-100); SAMPLE BLOOD; SAO2 99.9 % (95.0-100.0); THB 10.5 g/dL (11.5-17.4); pH(98.6) 7.34 (7.35-7.45)
[2018-09-14 03:31] LABS: MODALITY BI PAP; PCO2(98.6) 53 mmHg (35-45)
[2018-09-14] MEDS: DUONEB (A & A) INH SCH ×6 (03:35→23:10)
[2018-09-14 05:54] LABS: HEMATOCRIT 36.3 % (37.0-47.0); HEMOGLOBIN 11.3 g/dL (12.0-16.0); HEMOGLOBIN A1C 9.5 % (4.8-6.0); IMM GRAN# 0.07 X1000 (0.0-0.04); IMM GRAN% 0.4 % (0.0-0.5); LYMPH% 5.4 % (20.5-51.1); MCH 26.7 PG (27-31); MCHC 31.1 g/dL (33-37); MCV 85.8 FL (81-99); MONO# 0.64 X1000 (0.11-0.59); MONO% 3.8 % (1.7-9.3); MPV 10.8 FL (7.4-10.4); NEUT# 15.18 X1000 (1.4-6.5); NEUT% 90.4 % (42.2-75.2); PLT 294 X1000 (130-400); RBC 4.23 XMIL (4.2-5.4); RDW 15.9 % (11.5-14.5); WBC 16.79 X1000 (4.8-10.8)
[2018-09-14 06:25] LABS: ALB/GLOB RATIO 0.9; ALBUMIN 3.4 g/dL (3.5-5.0); CALCIUM 9.4 mg/dL (8.8-10.2); CREATININE 1.4 mg/dL (0.5-0.9); POTASSIUM 4.4 mmol/L (3.5-5.1); TOTAL BILIRUBIN 0.31 mg/dL (0.20-1.00)
[2018-09-14] MEDS: PRILOSEC PO SCH (06:51)
--- NOTE | 2018-09-14 07:51 | Diag Imaging Result Doc PS360 ---
EXAM: CHEST-PORTABLE INDICATION: dyspnea TECHNIQUE: One view COMPARISON: 09/13/2018 FINDINGS: There is stable pulmonary venous congestion and mild basilar atelectasis. No new consolidation is identified. Cardiac silhouette is stable. IMPRESSION: Stable chest. Electronically signed by Lenard Noguera 09/14/2018 7:49 AM
[2018-09-14] MEDS: RANEXA PO SCH ×2 (08:21→21:01)
[2018-09-14] MEDS: ALDACTONE PO SCH (08:22)
[2018-09-14] MEDS: PATIENT'S OWN MED INH SCH (08:22)
[2018-09-14] MEDS: PLAVIX PO SCH (08:22)
[2018-09-14] MEDS: KLOR-CON PO SCH (08:22)
[2018-09-14] MEDS: SINGULAIR PO SCH (08:22)
[2018-09-14] MEDS: WELCHOL PO SCH ×2 (08:22→21:01)
[2018-09-14] MEDS: SOLU-MEDROL IV SCH ×2 (08:22→21:01)
[2018-09-14] MEDS: ZOLOFT PO SCH (08:22)
[2018-09-14] MEDS: ASPIRIN PO SCH (08:22)
[2018-09-14] MEDS: AMARYL PO SCH (08:22)
[2018-09-14] MEDS: LOPRESSOR PO SCH ×2 (08:23→21:01)
--- NOTE | 2018-09-14 08:34 | PROGRESS NOTE ---
DATE: 09/14/2018 SUBJECTIVE: This patient is still using the BiPAP machine. She is still short of breath, but she seems to be feeling better, we have a negative balance of 6.1 L. The BUN and creatinine increased a little bit more so I will hold for now the Lasix IV 40 mg daily to see how she does, chest x-ray looks stable, she does have some crepitus and some rales at the bases, echocardiogram showed a pulmonary systolic pressure of at least 77 mmHg and there is a moderate concentric left ventricular hypertrophy with an ejection fraction around 65 to 70 percent, likely this patient has diastolic heart failure. They also recommended to evaluate this patient for an acute pulmonary embolism, and given her kidney dysfunction. I will ask for a V/Q scan when possible. Dr. Tomasz Soliman is her float phlebotomist, I will get Cardiology evaluation for the CHF exacerbation and as per the patient. Apparently, she has a history of atrial fibrillation. OBJECTIVE: Vital Signs: Temperature 98.3 degrees, pulse 56, respiratory rate 17, blood pressure 92/52, oxygen saturation 98 on 75% oxygen flow. HEENT: Head normocephalic. No trauma. PERRLA. Neck: Supple. I cannot see JVD because of her neck size. Central trachea. Chest: Decreased breath sounds globally. Prolonged expiratory phase. Some crepitus at the bases, probably some rales as well. Abdomen: Soft, obese, protuberant. Nontender, nondistended. No hepatosplenomegaly. Extremities: Trace pedal edema. No clubbing. No cyanosis. Neurological: The patient is alert and oriented x3. No focal neurological deficits. LABORATORY DATA: WBC 16.7, hemoglobin 11.3, hematocrit 36.3, and platelets 294,000. pCO2 53, sodium 138, potassium 4.4, chloride 99, bicarbonate 29, BUN 31, creatinine 1.4, glucose 251. Hemoglobin A1c 9.5. Albumin 3.4. ASSESSMENT AND PLAN: 1. Chronic obstructive pulmonary disease exacerbation. This patient has been placed on the BiPAP machine, her pCO2 still elevated, they have increased the oxygen flow from 50 to 75. Pulmonary Department following this patient. 2. Acute on chronic hypoxemic and hypercarbic respiratory failure: This patient has been getting oxygen at home. For now, we will continue with same management per #1. 3. Likely diastolic heart failure exacerbation. She does have pulmonary hypertension. We have a negative balance of 6.1 L. I will hold the Lasix for today because of her acute kidney injury on chronic kidney disease, and I will continue to monitor. Chest x-ray looks stable. 4. Leukocytosis. This patient has been placed on antibiotics and also steroids which I have decreased in frequency. 5. Tobacco abuse. This patient has been highly advised against tobacco use. I will continue with daily cessation education. Currently, she is still smoking. 6. Morbid obesity with a body mass index of 46.2, aware. Diet and exercise has been discussed. 7. Type 2 diabetes, uncontrolled. I have placed this patient on Lantus 20, hemoglobin A1c is 9.5. I will continue with sliding scale insulin and pattern blood sugar. 8. Likely acute on chronic kidney disease. For today, I will hold her Lasix, and I will continue her Lasix probably tomorrow depending on the lab work. 9. We did an echocardiogram that showed a left ventricular hypertrophy with preserved ejection fraction, she does have some diastolic issues due to her increased pulmonary pressure. It has been recommended to rule out pulmonary embolism. I have requested a V/Q scan that probably will be done on Sunday, I will follow recommendations. cc: Robles Rod MD
[2018-09-14] MEDS: SYMBICORT 160/4.5 MICROGM INHALER INH SCH (08:36)
[2018-09-14] MEDS ORDERED: LANTUS INSULIN SUBQ SCH (09:00)
[2018-09-14] MEDS: LEVAQUIN 500 MG/D5W 500 MG/100 ML IVPB IV SCH (14:51)
--- NOTE | 2018-09-14 18:28 | CONSULTATION ---
DATE OF CONSULTATION: 09/14/2018 IMPRESSION: 1. Acute on chronic hypoxemic respiratory failure. 2. Acute on chronic congestive heart failure predominantly right-sided heart failure probably related to cor pulmonale and pulmonary hypertension as suggested by echocardiography. 3. Severe chronic obstructive pulmonary disease requiring chronic home oxygen. 4. Morbid obesity. 5. Obstructive sleep apnea. 6. Chronic ongoing cigarette use at a rate of 1 pack of cigarettes per day. 7. Atherosclerotic coronary disease with chronic right coronary artery occlusion. Last cardiac catheterization study was performed last year. She continues without angina. 8. Type 2 diabetes mellitus. 9. Hypertension. RECOMMENDATIONS: 1. Agree with recent diuresis. She does not presently appear to show any residual volume excess by exam. 2. Aggressively treat for COPD exacerbation and supplement oxygen as well as utilize BiPAP at night as you are doing. 3. The patient strongly advised to discontinue cigarette use. Agree with nicotine patch. HISTORY: This 58-year-old white female with past history of severe COPD, morbid obesity, obstructive sleep apnea, recurrent episodes of CHF probably right-sided in the setting of pulmonary hypertension, atherosclerotic coronary disease, hypertension, and type 2 diabetes mellitus was admitted with progressive dyspnea symptoms and hypoxemia despite home oxygen. She reports a 3-day history of progressive shortness of breath prior to hospitalization. Oxygen saturations were diminished despite home oxygen at 5 to 6 L per minute. She came to the emergency room by EMS and was found to be significantly hypoxemic. Chest x-ray was difficult to interpret given her morbid obesity. There is suggestion of pulmonary congestion. She has been treated with supplemental oxygen, BiPAP and corticosteroids. She has also been diuresed with intravenous Lasix. Echocardiography demonstrated normal left ventricular ejection fraction. Right ventricular enlargement and abnormal septal wall motion was described as well as significant pulmonary hypertension. Inferior vena cava was dilated suggesting elevated central venous pressure at the time she was admitted. She reports feeling some improvement. PAST MEDICAL HISTORY: 1. Severe COPD requiring chronic oxygen. 2. Morbid obesity. 3. Obstructive sleep apnea. 4. Atherosclerotic coronary disease with chronic right coronary artery occlusion with well- established collaterals. Last cardiac catheterization in 2018. 5. Hypertension. 6. Hypothyroidism. 7. Type 2 diabetes mellitus. 8. Previous cerebrovascular accident. PAST SURGICAL HISTORY: Includes section, hysterectomy, tonsillectomy. ALLERGIES: She was multiple drug allergies and intolerances including ESCOBAR inhibitors, codeine and ceftriaxone. MEDICATIONS PRIOR TO ADMISSION: As listed. SOCIAL HISTORY: She lives with family. Smokes 1 pack of cigarettes per day and has smoked since she was age 11. She does not use alcohol. FAMILY HISTORY: Positive for coronary disease. REVIEW OF SYSTEMS: Pulmonary: Noteworthy for progressive dyspnea. There has been no orthopnea. Gastrointestinal: Noncontributory. Constitutional: Noncontributory. Remainder review of systems negative/noncontributory beyond history of present illness with 14 total systems reviewed. PHYSICAL EXAMINATION: General: This is a morbidly obese, older middle-aged white female in no distress on supplemental oxygen per mask. Oxygen saturation 93 to 94 percent, blood pressure 103/61, heart rate 50 and regular with ECG monitor showing sinus bradycardia. HEENT: Extraocular movements appear intact. Mucous membranes are moist. Neck: Supple. Jugular venous distention suggests upper normal central venous pressure. Chest: Auscultation of the chest reveals few inspiratory crackles in the bases bilaterally. Cardiac Exam: Reveals a regular rate and rhythm without appreciable murmur or gallop. Abdomen: Obese, soft with normal bowel sounds. Extremities: Without edema. Neurologic: Reveals her to be alert and fully oriented. Speech is fluent. She moves all 4 extremities equally well. DATA: A 12-lead EKG obtained on admission demonstrates sinus tachycardia and nonspecific ST and T- wave abnormality. Baseline artifact present. LABORATORY DATA: Includes a white blood cell count 16.79, hematocrit 36.3, hemoglobin 11.3, platelet count 294,000. Arterial blood gas with a pH of 7.34, pCO2 53, PO2 107 on BiPAP. Sodium 138, potassium 4.4, chloride 99, carbon dioxide 29, BUN 31 creatinine 1.4 (admission BUN 11 with a creatinine 0.9). Glucose 251, albumin 3.4. cc: Yaron Kwan MD
[2018-09-14] MEDS: NEURONTIN PO SCH (21:01)
[2018-09-14] MEDS: NICODERM PATCH TD SCH (21:01)
[2018-09-14] MEDS: KLONOPIN PO PRN (21:12)
[2018-09-15] MEDS: DUONEB (A & A) INH SCH ×5 (03:23→19:10)
[2018-09-15 04:39] LABS: ALLEN TEST YES; BE 1.2 mmoll (-3.0-3.0); BLOOD TYPE ARTERIAL; HCO3-(ACT) 25.7 mmoll (20.0-26.0); METHB 0.7 % (0.0-1.5); O2(CT) 13.1 mL/dL (15.0-23.0); PO2(98.6) 56 mmHg (60-100); SAMPLE BLOOD; SAO2 90.3 % (95.0-100.0); THB 10.5 g/dL (11.5-17.4)
[2018-09-15 04:41] LABS: MODALITY VENTIMASK; O2HB 88.5 % (95.0-99.0)
[2018-09-15 04:51] LABS: PCO2(98.6) 58 mmHg (35-45)
[2018-09-15 05:54] LABS: BASO# 0.01 X1000 (0.0-0.2); BASO% 0.1 % (0.0-0.8); HEMATOCRIT 38.4 % (37.0-47.0); HEMOGLOBIN 11.9 g/dL (12.0-16.0); IMM GRAN# 0.12 X1000 (0.0-0.04); IMM GRAN% 0.7 % (0.0-0.5); LYMPH# 0.75 X1000 (1.2-3.4); LYMPH% 4.4 % (20.5-51.1); MCH 27.1 PG (27-31); MCV 87.5 FL (81-99); MONO# 0.48 X1000 (0.11-0.59); MONO% 2.8 % (1.7-9.3); MPV 10.9 FL (7.4-10.4); NEUT# 15.74 X1000 (1.4-6.5); PLT 283 X1000 (130-400); RBC 4.39 XMIL (4.2-5.4)
[2018-09-15] MEDS: PRILOSEC PO SCH (06:13)
[2018-09-15] MEDS: HUMALOG SUBQ SCH ×5 (06:14→20:01)
[2018-09-15] MEDS: LOPRESSOR PO SCH ×4 (06:14→20:01)
[2018-09-15 06:15] LABS: CREATININE 1.6 mg/dL (0.5-0.9)
--- NOTE | 2018-09-15 08:13 | Diag Imaging Result Doc PS360 ---
EXAM: CHEST-PORTABLE INDICATION: dyspnea TECHNIQUE: One view COMPARISON: 09/14/2018 FINDINGS: Inspiration is suboptimal. Mild subsegmental atelectasis at the lung bases is essentially stable. No new consolidation is identified. Cardiac silhouette is stable. IMPRESSION: Slightly lower lung volumes. Stable chest, otherwise. Electronically signed by Lenard Noguera 09/15/2018 8:11 AM
[2018-09-15] MEDS: PLAVIX PO SCH (08:57)
[2018-09-15] MEDS: AMARYL PO SCH (08:57)
[2018-09-15] MEDS: LASIX IV SCH (08:57)
[2018-09-15] MEDS: SOLU-MEDROL IV SCH ×3 (08:57→20:02)
[2018-09-15] MEDS: WELCHOL PO SCH ×3 (08:57→20:02)
[2018-09-15] MEDS: ZOLOFT PO SCH (08:57)
[2018-09-15] MEDS: SINGULAIR PO SCH (08:57)
[2018-09-15] MEDS: KLOR-CON PO SCH (08:57)
[2018-09-15] MEDS: ASPIRIN PO SCH (08:57)
[2018-09-15] MEDS: RANEXA PO SCH ×3 (08:57→20:02)
[2018-09-15] MEDS ORDERED: LANTUS INSULIN SUBQ SCH (09:00)
[2018-09-15] MEDS: SYMBICORT 160/4.5 MICROGM INHALER INH SCH (09:21)
--- NOTE | 2018-09-15 09:55 | EKG Report ---
Test Performed on : 09/15/2018 06:20:25 AM Test Reason : possible rhythm change Blood Pressure : / mmHG Vent. Rate : 136 BPM Atrial Rate : 136 BPM P-R Int : 000 ms QRS Dur : 096 ms QT Int : 362 ms P-R-T Axes : 000 066 007 degrees QTc Int : 544 ms Atrial fibrillation. with rapid ventricular response. Nonspecific ST and T wave abnormality Abnormal ECG When compared with ECG of 12-SEP-2018 10:20, (Unconfirmed) Atrial fibrillation. has replaced Sinus rhythm. Non-specific change in ST segment in Lateral leads Confirmed by oCrey ELY, Doyle Penn ([id number]) on 09/16/2018 12:48:49 PM
--- NOTE | 2018-09-15 12:44 | PROGRESS NOTE ---
DATE: 09/15/2018 INTERVAL HISTORY: The patient reports some improvement in her dyspnea. Using BiPAP at night. She was placed on non-rebreather this morning but appears to have good oxygenation and likely some room to wean. No new complaints. No acute events overnight. REVIEW OF SYSTEMS: Still some dyspnea. Otherwise, a 12 point review of systems negative, except as per Interval History. LABORATORIES: WBC 17.1, hemoglobin 11.9, hematocrit 38.4, platelets 283,000. ABG with pH 7.3, pCO2 of 58, PO2 of 56 on 50% Ventimask. Sodium 135, BUN 33, creatinine 1.6, glucose 291. IMAGING: Chest x-ray with low lung volumes, but otherwise stable. VITALS: Temperature maximum 98.3 degrees, pulse 53, respirations 18, blood pressure 105/65, O2 saturation is 92% on 50% Ventimask. PHYSICAL EXAMINATION: General: No acute distress. Vitals: As above. HEENT: Normocephalic, atraumatic. Moist mucous membranes. No cervical adenopathy. Cardiovascular: Regular rate and rhythm at the time of my exam. No murmurs noted. Pulmonary: Markedly decreased air entry throughout. Very faint end-expiratory wheezing. Otherwise clear to auscultation within the limits of body habitus. Abdomen: Soft, nontender, nondistended. Obese. Bowel sounds positive. Extremities: Peripheral pulses decreased, but intact. No clubbing or cyanosis. Trace lower extremity edema bilaterally. Neurologic: Cranial nerves grossly intact. No focal deficits identified. Psychiatric: Normal mood and affect. Asleep, but easily arousable. Oriented x3. Skin: No new rashes or lesions identified. ASSESSMENT AND PLAN: 1. Acute on chronic hypoxemic and hypercarbic respiratory failure, chronic obstructive pulmonary disease exacerbation. ABG similar overall with continued hypercapnia and hypoxia, although patient symptomatic improvement and has a markedly negative fluid balance. Continue breathing treatments and steroids. Stopping spironolactone, but continuing Lasix. If patient continues to struggle, then we will likely consult Pulmonology in the morning. 2. Acute on chronic diastolic congestive heart failure and pulmonary hypertension. Last echo with last EF 65% to 70%, pulmonary pressure of 77. Likely contributing to respiratory failure as above. Brisk diuresis with Lasix and spironolactone with patient -9.5 L for the hospitalization. Creatinine trending up some over the last couple days, so we will stop spironolactone. Continue Lasix for now, but if creatinine continues to trend up, then we will likely have to discontinue that in the morning as well. Cardiology consulted and following. 3. Morbid obesity. Also likely contributing to respiratory failure above with pickwickian syndrome. Diet and exercise have been discussed. BMI 46. 4. Diabetes mellitus. Glucose control remains suboptimal. We will increase Lantus and monitor. 5. Acute kidney injury on likely chronic kidney disease 3. Patient's baseline not exactly certain, generally apears to have a creatinine of 1.2 to 1.3, but was down to 0.9 on admission. Trending up over the last 2 to 3 days. Holding spironolactone today and may have to discontinue Lasix as well if this continues to trend up. 6. Tobacco abuse. Patient strongly counseled on cessation. [facility]
[2018-09-15] MEDS: PATIENT'S OWN MED INH SCH (12:48)
[2018-09-15] MEDS: LEVAQUIN 500 MG/D5W 500 MG/100 ML IVPB IV SCH (16:01)
--- NOTE | 2018-09-15 18:08 | PROGRESS NOTE ---
DATE: 09/15/2018 CARDIOLOGY PROGRESS NOTE: SUBJECTIVE: Patient reports feeling better. She denies shortness of breath or chest discomfort. She converted to atrial fibrillation with rapid ventricular rate transiently this morning for a couple of hours. She is back in sinus rhythm. She relates some associated palpitations with this. OBJECTIVE: Vital Signs: Blood pressure 122/60, heart rate 60 and regular. Oxygen saturation 93% on oxygen per mask. Neck: Jugular venous distention cannot be appreciated. Chest: Clear to auscultation bilaterally. Cardiac: Reveals a regular rate and rhythm without appreciable murmur or gallop. Extremities: Without edema. LABORATORY DATA: Includes a white blood cell count of 17.1 hematocrit 38.4, hemoglobin 11.9, platelet count 283,000. Arterial blood gas: pH 7.3, pCO2 58, PO2 56. Sodium 135, potassium 5.0, chloride 98, carbon dioxide 29, BUN 33, creatinine 1.6, glucose 348. IMPRESSION: 1. Acute on chronic Hypoxemic/hypercapnic respiratory failure. I suspect COPD is a major factor. 2. Acute on chronic congestive heart failure, [*] right-sided heart. Probably related to pulmonary hypertension. Lab data suggests emerging prerenal azotemia with diuresis. 3. Transient atrial fibrillation. 4. Severe COPD requiring chronic home oxygen. 5. Morbid obesity. 6. Obstructive sleep apnea. 7. Chronic ongoing cigarette use. 8. Atherosclerotic coronary disease with chronic right coronary occlusion. The patient continues without angina. 9. Type 2 diabetes mellitus. 10. Hypertension. RECOMMENDATIONS: Discontinue IV Lasix and continue to monitor volume status. cc: Yaron Kwan MD
[2018-09-15] MEDS ORDERED: HUMULIN R SUBQ ONE (18:21)
[2018-09-15] MEDS: NEURONTIN PO SCH ×2 (19:54→20:02)
[2018-09-15] MEDS: NICODERM PATCH TD SCH (20:01)
[2018-09-16] MEDS: DUONEB (A & A) INH SCH ×6 (00:31→23:47)
[2018-09-16] MEDS: PRILOSEC PO SCH (06:51)
[2018-09-16] MEDS: HUMALOG SUBQ SCH ×4 (06:51→21:42)
[2018-09-16 08:26] LABS: BASO# 0.01 X1000 (0.0-0.2); BASO% 0.1 % (0.0-0.8); HEMATOCRIT 37.4 % (37.0-47.0); HEMOGLOBIN 11.5 g/dL (12.0-16.0); IMM GRAN# 0.09 X1000 (0.0-0.04); IMM GRAN% 0.7 % (0.0-0.5); LYMPH# 1.18 X1000 (1.2-3.4); LYMPH% 9.4 % (20.5-51.1); MCH 26.6 PG (27-31); MCHC 30.7 g/dL (33-37); MCV 86.6 FL (81-99); MONO# 0.34 X1000 (0.11-0.59); MONO% 2.7 % (1.7-9.3); MPV 10.5 FL (7.4-10.4); NEUT# 10.87 X1000 (1.4-6.5); NEUT% 87.1 % (42.2-75.2); PLT 282 X1000 (130-400); RBC 4.32 XMIL (4.2-5.4); RDW 15.7 % (11.5-14.5); WBC 12.49 X1000 (4.8-10.8)
[2018-09-16] MEDS: KLOR-CON PO SCH (08:37)
[2018-09-16] MEDS: ASPIRIN PO SCH (08:37)
[2018-09-16] MEDS: AMARYL PO SCH (08:37)
[2018-09-16] MEDS: LOPRESSOR PO SCH ×2 (08:38→21:43)
[2018-09-16] MEDS: SOLU-MEDROL IV SCH ×2 (08:38→21:42)
[2018-09-16] MEDS: RANEXA PO SCH ×2 (08:38→21:43)
[2018-09-16] MEDS: PATIENT'S OWN MED INH SCH (08:38)
[2018-09-16] MEDS: PLAVIX PO SCH (08:38)
[2018-09-16] MEDS: SINGULAIR PO SCH (08:38)
[2018-09-16] MEDS: WELCHOL PO SCH ×2 (08:39→21:43)
[2018-09-16] MEDS: ZOLOFT PO SCH (08:39)
[2018-09-16 08:42] LABS: CALCIUM 9.1 mg/dL (8.8-10.2); CREATININE 1.4 mg/dL (0.5-0.9)
--- NOTE | 2018-09-16 08:44 | CONSULTATION ---
DATE OF CONSULTATION: 09/13/2018 CHIEF COMPLAINT: Shortness of breath despite O2 use. HISTORY OF PRESENT ILLNESS: This is a 58-year-old female who has had worsening shortness of breath over the past few days. Her oxygen has been desaturating into the 70s despite using supplemental O2. Recent chest x-ray revealed stable cardiomegaly and pulmonary vascular congestion; stable minimal infiltration or atelectasis in lung bases. PAST MEDICAL HISTORY: CVA, COPD, type 2 diabetes mellitus, CHF, hypertension, hypothyroidism. PAST SURGICAL HISTORY: , hysterectomy and tonsillectomy. FAMILY HISTORY: Noncontributory. SOCIAL HISTORY: Lives with family. Pack-a-day smoker, been a smoker since she was 11 years old, for approximately 50 years. Denies any illicit drug use or alcohol. ALLERGIES: ESCOBAR inhibitors, codeine, ceftriaxone and nylon sutures. REVIEW OF SYSTEMS: A 10-point review of systems was conducted and the pertinence is listed within the HPI, otherwise noncontributory. MEDICATIONS: Please see home reconciliation list. DIAGNOSTIC DATA: Chest x-ray as mentioned in the HPI. LABORATORY DATA: White blood cells 12.16, red blood cells 4.31, hemoglobin 11, hematocrit 37. PH 7.34, pCO2 is 51, pO2 is 74, HCO3 is 25.6, base excess 1.0, oxyhemoglobin 93.3. Sodium 133, potassium 4.1, chloride 96, carbon dioxide 26, BUN 20, creatinine 1.2, glucose 352. ASSESSMENT AND PLAN: 1. Chronic obstructive pulmonary disease exacerbation. Continue bilevel positive airway pressure use, steroids and bronchodilators. 2. Cbmqv-zh-ymuucab hypercapnic hypoxemic respiratory failure. She has been on home oxygen. We will continue the same management. 3. Possible congestive heart failure exacerbation. Echocardiogram scheduled. Continue Lasix as prescribed. 4. Leukocytosis. Continue antibiotics as prescribed. 5. Tobacco abuse. Smoking cessation discussed. Continue NicoDerm patches p.r.n. 6. Morbid obesity. Aware. 7. Type 2 diabetes mellitus. We will continue to monitor. Thank you for the courtesy of this consult. Dictated by IRA Grove for Abdelrahman Recinos MD cc: IRA Grove MD
[2018-09-16 08:49] LABS: LYMPHS 11 % (21-51); MONO 3 % (1-9); SEGS 86 % (42-75)
[2018-09-16 08:51] LABS: LARGE PLATELETS 1+
[2018-09-16] MEDS ORDERED: LANTUS INSULIN SUBQ SCH (09:00)
--- NOTE | 2018-09-16 13:03 | Diag Imaging Result Doc PS360 ---
EXAM: LUNG SCAN / VQ INDICATION: R/O PE TECHNIQUE: 40.8 mCi of aerosolized technetium 99 DTPA was administered for the ventilation portion of the scan. 6.2 mCi of IV technetium 99 MAA was administered for the perfusion portion of the scan. COMPARISON: No prior V/Q scan is available for comparison. FINDINGS: No matched or unmatched perfusion defects are identified. On the ventilation portion of the scan, much of the radiotracer is condensed in the trachea and mainstem bronchi, which makes the small airway uptake heterogeneous. It is unremarkable, otherwise. IMPRESSION: Negative VQ scan. Electronically signed by Lenard Noguera 09/16/2018 1:01 PM
--- NOTE | 2018-09-16 13:06 | Diag Imaging Result Doc PS360 ---
EXAM: CHEST-2 VIEWS HISTORY: s/p VQscan TECHNIQUE: Chest two views COMPARISON: 09/15/2018 FINDINGS: The lungs are hyperexpanded except for atelectasis in the lower lungs. There is an increased AP diameter to the chest. There are tiny pleural effusions. No consolidation. IMPRESSION: Small pleural effusions with basilar atelectasis Electronically signed by Esdras Lares 09/16/2018 1:03 PM
[2018-09-16] MEDS ORDERED: MYLICON DROPS PO PRN (13:58)
[2018-09-16] MEDS ORDERED: MYLICON PO PRN (14:15)
--- NOTE | 2018-09-16 15:06 | PROGRESS NOTE ---
DATE: 09/16/2018 INTERVAL HISTORY: Dyspnea continues to improve slowly. Used BiPAP overnight, but has done well on 50% Ventimask this morning. Appears to have some room to wean oxygenation. Complaining only of gas. No acute events overnight. REVIEW OF SYSTEMS: A 12-point review of systems is negative, except as per interval history. LABORATORY DATA: WBC 12.4, hemoglobin 11.5, hematocrit 37.4, platelets 282,000. BUN 35, creatinine 1.4, glucose 239 to 290. IMAGING: Chest x-ray with tiny bilateral pleural effusions with basilar atelectasis, otherwise largely clear. V/Q scan pending. PHYSICAL EXAMINATION: Vital Signs: T-max 98.7 degrees, pulse 66, respirations 16, blood pressure 104/88, O2 saturation 91% on 5 L by nasal cannula. General: No acute distress. Obese. HEENT: Normocephalic, atraumatic. Moist mucous membranes. No cervical adenopathy. Cardiovascular: Regular rate and rhythm at the time of my exam. No murmurs noted. Pulmonary: Still with decreased air entry throughout. Wheezing essentially resolved. Abdomen: Soft, nontender, nondistended. Obese. Bowel sounds positive. Extremities: Peripheral pulses decreased, but intact. No clubbing or cyanosis. Trace to 1+ lower extremity edema bilaterally, essentially unchanged. Neurologic: Cranial nerves grossly intact. No focal deficits identified. Psychiatric: Normal mood and affect. Awake, alert, oriented x3. Skin: No new rashes or lesions identified. ASSESSMENT AND PLAN: 1. Acute on chronic hypoxemic and hypercarbic respiratory failure, chronic obstructive pulmonary disease exacerbation. Patient with continued on slow symptomatic improvement. Some improvement in oxygenation. Will continue efforts at weaning oxygen. On 6 to 7 liters at home, so beginning to approach baseline. Holding diuretics currently because of increasing creatinine yesterday. May restart these tomorrow if creatinine continues to improve. 2. Acute on chronic diastolic congestive heart failure and pulmonary hypertension. Last echocardiogram with ejection fraction of 65% to 70%, pulmonary pressure of 77. Contributing to respiratory failure as above. Had brisk diuresis with Lasix and spironolactone, with the patient -8.7 liters for the hospitalization. Holding diuretics currently because of increasing creatinine. Cardiology following. Continue to monitor. 3. Morbid obesity, also likely contributing to respiratory failure with pickwickian syndrome. Diet and exercise has been discussed. Body mass index 46. 4. Diabetes mellitus. Glucose control somewhat improved, but remains suboptimal. Patient now on high-dose sliding scale. Lantus was further increased. Will see what that does, but suspect we will have to further increase her Lantus. 5. Acute kidney injury on likely chronic kidney disease 3. The patient's baseline is not entirely certain. Likely approximately 1.2 to 1.3. It was trending up, so spironolactone and Lasix were held. Creatinine now coming back down. Hold diuretics one more day, but will likely restart tomorrow if creatinine continues to improve towards suspected baseline. 6. Tobacco abuse. Patient strongly counseled on cessation.
[2018-09-16] MEDS: LEVAQUIN 500 MG in NS 100 ML IV SCH (16:32)
[2018-09-16] MEDS ORDERED: HUMULIN R SUBQ ONE (17:53)
[2018-09-16] MEDS: KLONOPIN PO PRN (21:43)
[2018-09-16] MEDS: NICODERM PATCH TD SCH (21:43)
[2018-09-16] MEDS: NEURONTIN PO SCH (21:43)
[2018-09-17] MEDS: DUONEB (A & A) INH SCH ×6 (03:40→23:10)
[2018-09-17 06:02] LABS: ALLEN TEST YES; BE 6.7 mmoll (-3.0-3.0); BLOOD TYPE ARTERIAL; HCO3-(ACT) 30.1 mmoll (20.0-26.0); METHB 0.6 % (0.0-1.5); O2(CT) 17.2 mL/dL (15.0-23.0); O2HB 93.4 % (95.0-99.0); PO2(98.6) 70 mmHg (60-100); SAMPLE BLOOD; SAO2 95.2 % (95.0-100.0); THB 13.1 g/dL (11.5-17.4); pH(98.6) 7.39 (7.35-7.45)
[2018-09-17 06:10] LABS: MODALITY BI PAP; PCO2(98.6) 55 mmHg (35-45)
[2018-09-17 06:10] LABS: BASO% 0.2 % (0.0-0.8); HEMATOCRIT 40.3 % (37.0-47.0); MCV 85.7 FL (81-99)
[2018-09-17 06:25] LABS: BASO# 0.03 X1000 (0.0-0.2); HEMOGLOBIN 12.8 g/dL (12.0-16.0); IMM GRAN# 0.17 X1000 (0.0-0.04); IMM GRAN% 1.3 % (0.0-0.5); LYMPH# 1.14 X1000 (1.2-3.4); LYMPH% 8.8 % (20.5-51.1); MCH 27.2 PG (27-31); MCHC 31.8 g/dL (33-37); MONO# 0.41 X1000 (0.11-0.59); MONO% 3.2 % (1.7-9.3); MPV 10.6 FL (7.4-10.4); NEUT# 11.19 X1000 (1.4-6.5); NEUT% 86.5 % (42.2-75.2); PLT 299 X1000 (130-400); WBC 12.94 X1000 (4.8-10.8)
[2018-09-17 06:30] LABS: CALCIUM 9.1 mg/dL (8.8-10.2); CREATININE 1.3 mg/dL (0.5-0.9); POTASSIUM 5.7 mmol/L (3.5-5.1)
[2018-09-17] MEDS: PRILOSEC PO SCH (06:30)
[2018-09-17] MEDS: HUMALOG SUBQ SCH ×4 (06:30→21:11)
[2018-09-17 07:04] LABS: LYMPHS 10 % (21-51); MONO 5 % (1-9); SEGS 85 % (42-75)
--- NOTE | 2018-09-17 07:17 | EKG Report ---
Test Performed on : 09/16/2018 6:32:55 PM Test Reason : elevated hr Blood Pressure : / mmHG Vent. Rate : 067 BPM Atrial Rate : 067 BPM P-R Int : 172 ms QRS Dur : 102 ms QT Int : 430 ms P-R-T Axes : 104 057 062 degrees QTc Int : 454 ms Normal sinus rhythm. Normal ECG When compared with ECG of 15-SEP-2018 06:20, Sinus rhythm. has replaced Atrial fibrillation. Vent. rate has decreased BY [address] no longer depressed in Anterior leads Nonspecific T wave abnormality no longer evident in Inferior leads T wave inversion no longer evident in Anterior leads Confirmed by Corey ELY, Doyle Penn ([id number]) on 09/17/2018 9:06:43 AM
--- NOTE | 2018-09-17 07:20 | Diag Imaging Result Doc PS360 ---
EXAM: CHEST-1 VIEW HISTORY: dyspnea TECHNIQUE: Portable chest single view COMPARISON: 09/16/2018 FINDINGS: The lungs are well expanded. The heart is mildly enlarged. There is pulmonary edema. No pleural effusions identified. IMPRESSION: No interval improvement. Questionable mild worsening pulmonary edema. Electronically signed by Esdras Lares 09/17/2018 7:17 AM
[2018-09-17] MEDS: KLOR-CON PO SCH (08:11)
[2018-09-17] MEDS: AMARYL PO SCH (09:07)
[2018-09-17] MEDS: LANTUS INSULIN SUBQ SCH (09:07)
[2018-09-17] MEDS: ASPIRIN PO SCH (09:07)
[2018-09-17] MEDS: WELCHOL PO SCH ×2 (09:07→21:11)
[2018-09-17] MEDS: SINGULAIR PO SCH (09:07)
[2018-09-17] MEDS: SOLU-MEDROL IV SCH (09:08)
[2018-09-17] MEDS: ZOLOFT PO SCH (09:08)
[2018-09-17] MEDS: LOPRESSOR PO SCH ×2 (09:08→21:11)
[2018-09-17] MEDS: PLAVIX PO SCH (09:08)
[2018-09-17] MEDS: PATIENT'S OWN MED INH SCH (09:08)
[2018-09-17] MEDS: RANEXA PO SCH ×2 (09:08→21:11)
--- NOTE | 2018-09-17 09:18 | EKG Report ---
Test Performed on : 09/17/2018 02:15:41 AM Test Reason : arrythmia Blood Pressure : / mmHG Vent. Rate : 059 BPM Atrial Rate : 059 BPM P-R Int : 156 ms QRS Dur : 100 ms QT Int : 484 ms P-R-T Axes : 027 068 051 degrees QTc Int : 479 ms Sinus bradycardia. with marked sinus arrhythmia. Otherwise normal ECG When compared with ECG of 17-SEP-2018 02:13, (Unconfirmed) Sinus rhythm. has replaced Atrial fibrillation. ST no longer depressed in Anterior leads Confirmed by Corey ELY, Doyle Penn ([id number]) on 09/18/2018 10:18:34 AM
[2018-09-17] MEDS: LASIX PO SCH (09:22)
[2018-09-17 14:42] LABS: CALCIUM 9.3 mg/dL (8.8-10.2); CREATININE 1.3 mg/dL (0.5-0.9); POTASSIUM 5.2 mmol/L (3.5-5.1)
[2018-09-17] MEDS ORDERED: KAYEXALATE PO ONE (16:13)
[2018-09-17] MEDS: LEVAQUIN 500 MG in NS 100 ML IV SCH (16:45)
--- NOTE | 2018-09-17 17:35 | PROGRESS NOTE ---
DATE: 09/17/2018 INTERVAL HISTORY: Dyspnea and oxygen requirements approaching baseline. No new complaints. No acute events overnight. REVIEW OF SYSTEMS: Twelve-point review of systems negative except as per interval history. LABS: WBC 12.9, hemoglobin 12.8, hematocrit 40.3, platelets 299,000. ABG with pH 7.39, pCO2 55, PO2 70, O2 sat 95% on 50% FiO2 via BiPAP. Sodium 134, initial potassium 5.7, repeat 5.2, BUN 37, creatinine 1.3, glucose 301 to 374. TSH 0.09, free T4 of 1.46. VITALS: T-max 98.3, pulse 58, respirations 19, blood pressure 143/90. O2 saturation 94% on 40% Ventimask. PHYSICAL EXAMINATION: General: No acute distress. Vitals: As above. HEENT: Normocephalic, atraumatic. Moist mucous membranes. No cervical adenopathy. Cardiovascular: Regular rate and rhythm at the time of my exam. No murmurs noted. Pulmonary: Decreased air entry throughout stable. No further wheezing. Abdomen: Soft, nontender, nondistended. Obese. Bowel sounds positive. Extremities: Peripheral pulses decreased, but intact. No clubbing or cyanosis. Trace to 1+ lower extremity edema bilaterally stable. Neurologic: Cranial nerves grossly intact. No focal deficits identified. Psychiatric: Normal mood and affect. Awake, alert, oriented x 3. Skin: No new rashes or lesions seen. ASSESSMENT AND PLAN: 1. Acute on chronic hypoxemic and hypercarbic respiratory failure. Multifactorial with COPD, acute on chronic diastolic congestive heart failure, pulmonary hypertension, and likely pickwickian syndrome. The patient has been on as much as 6 to 7 L of oxygen at home. Also has a portable BiPAP at home. Near or at baseline at this point. Will restart oral diuretics. Wean steroids. Likely discharge home in the near future. 2. Acute on chronic diastolic congestive heart failure and pulmonary hypertension. Last echo with EF 65-70%. Pulmonary pressure 77. Contributing to respiratory failure as above. Had brisk diuresis with Lasix and spironolactone initially. Diuretics had to be held for a couple days because of increasing creatinine, but creatinine recovered. Restarted Lasix. Monitor. 3. Morbid obesity also likely contributing to respiratory failure with Pickwickian syndrome as above. Diet and exercise have been discussed. Body mass index 46. 4. Diabetes mellitus. Glucose control slightly improved, but still quite suboptimal. Likely related to steroid therapy. May improve with weaning steroids as above. Will further increase Lantus for now. 5. Acute kidney injury on likely chronic kidney disease 3. Patient's baseline not entirely certain, but appears to be 1.2 to 1.3. Diuretics had to be held because of up trend in creatinine, but now back to baseline. Restarting Lasix and monitor. 6. Hyponatremia, mild, asymptomatic, although slightly worse today, likely related to heart failure. Suspect it will resolve with resumption of Lasix. Monitor. 7. Hyperkalemia. Potassium up to 5.7 initially this morning. Lasix restarted as above and on recheck potassium still moderately elevated, but improved to 5.2. Continue diuresis and monitor. 8. Sleep apnea. Continue BiPAP at night. 9. Disposition: Awaiting final Cardiology recommendations. If Cardiology believes she is ready for discharge, potassium is stable to improved in the morning, and no other issues develope, then may be able to be discharged tomorrow. [facility]
--- NOTE | 2018-09-17 18:34 | CARDIOLOGY PROGRESS NOTE ---
DATE: 09/17/2018 SUBJECTIVE: The patient denies chest discomfort or dyspnea on supplemental oxygen. OBJECTIVE: Vital Signs: Blood pressure 115/55, heart rate 64, oxygen saturation 92% to 94%. There is no significant jugular venous distention. Chest: Auscultation of the chest reveals diminished breath sounds diffusely. Cardiac: Exam reveals a regular rate and rhythm without appreciable murmur or gallop. There is no evidence of peripheral edema. LABORATORY DATA: Includes a white blood cell count 12.94, hematocrit 40.3, hemoglobin 12.8, platelet count 299. Sodium 133, potassium 5.2, chloride 93, carbon dioxide 30, BUN 41, creatinine 1.3. IMPRESSION: 1. Acute on chronic hypoxemic/hypercapnic respiratory failure. 2. Acute on chronic congestive heart failure, predominantly right-sided. Suspect this is related to pulmonary hypertension. Volume status appears to be near euvolemic presently. 3. Transient atrial fibrillation. The patient continues in sinus rhythm. 4. Severe chronic obstructive pulmonary disease requiring chronic home oxygen. 5. Morbid obesity. 6. Obstructive sleep apnea. 7. Chronic ongoing cigarette use. 8. Atherosclerotic coronary disease with chronic right coronary occlusion. The patient continues without angina. 9. Type 2 diabetes mellitus. 10. Hypertension. RECOMMENDATIONS: 1. I agree with resumption of oral Lasix. 2. Continue cardiovascular regimen, otherwise unchanged. 3. No further cardiovascular suggestions. It is reasonable for the patient to be discharged soon. I will see further on an as needed basis. cc: Yaron Kwan MD
[2018-09-17] MEDS: NEURONTIN PO SCH (21:11)
[2018-09-17] MEDS: NICODERM PATCH TD SCH (21:11)
[2018-09-17] MEDS: KLONOPIN PO PRN (23:13)
[2018-09-18] MEDS: DUONEB (A & A) INH SCH ×2 (03:15→08:10)
[2018-09-18 05:54] LABS: BASO# 0.02 X1000 (0.0-0.2); BASO% 0.1 % (0.0-0.8); EOS# 0.07 X1000 (0.0-0.7); EOS% 0.4 % (0.0-10.0); HEMATOCRIT 40.8 % (37.0-47.0); IMM GRAN# 0.21 X1000 (0.0-0.04); IMM GRAN% 1.3 % (0.0-0.5); LYMPH# 3.27 X1000 (1.2-3.4); MCH 27.2 PG (27-31); MCHC 31.9 g/dL (33-37); MCV 85.4 FL (81-99); MONO# 0.91 X1000 (0.11-0.59); MONO% 5.6 % (1.7-9.3); MPV 10.6 FL (7.4-10.4); NEUT# 11.87 X1000 (1.4-6.5); NEUT% 72.6 % (42.2-75.2); PLT 323 X1000 (130-400); RBC 4.78 XMIL (4.2-5.4); RDW 16.5 % (11.5-14.5); WBC 16.35 X1000 (4.8-10.8)
[2018-09-18] MEDS: PRILOSEC PO SCH (06:04)
[2018-09-18] MEDS: HUMALOG SUBQ SCH (06:05)
[2018-09-18 06:13] LABS: CALCIUM 9.2 mg/dL (8.8-10.2); CREATININE 1.3 mg/dL (0.5-0.9); POTASSIUM 4.2 mmol/L (3.5-5.1)
[2018-09-18] MEDS: PATIENT'S OWN MED INH SCH (08:14)
[2018-09-18 08:18] VITALS: BP 145/79
[2018-09-18] MEDS ORDERED: PREDNISONE PO SCH (09:00)
[2018-09-18] MEDS: WELCHOL PO SCH (09:26)
[2018-09-18] MEDS: LOPRESSOR PO SCH (09:27)
[2018-09-18] MEDS: ZOLOFT PO SCH (09:27)
[2018-09-18] MEDS: SINGULAIR PO SCH (09:27)
[2018-09-18] MEDS: KLOR-CON PO SCH (09:27)
[2018-09-18] MEDS: LASIX PO SCH (09:27)
[2018-09-18] MEDS: PLAVIX PO SCH (09:27)
[2018-09-18] MEDS: AMARYL PO SCH (09:27)
[2018-09-18] MEDS: RANEXA PO SCH (09:27)
[2018-09-18] MEDS: ASPIRIN PO SCH (09:27)
[2018-09-18] MEDS: LANTUS INSULIN SUBQ SCH (09:28)
--- NOTE | 2018-09-19 04:47 | DISCHARGE SUMMARY ---
ADMISSION DATE: 09/12/2018 DISCHARGE DATE: 09/18/2018 CONSULTS: Cardiology, Dr. Yaron Kwan. IMAGING: V/Q scan negative. Initial chest x-ray with cardiomegaly, pulmonary vascular congestion, minimal infiltrate versus atelectasis at the lung bases. DISCHARGE DIAGNOSES: 1. Acute on chronic hypoxemic and hypercarbic respiratory failure. 2. Chronic obstructive pulmonary disease exacerbation. 3. Acute on chronic diastolic congestive heart failure. 4. Pulmonary hypertension. 5. Likely Pickwickian syndrome. 6. Morbid obesity. 7. Diabetes mellitus 8. Chronic kidney disease stage 3. 9. Hyponatremia. 10. Hyperkalemia. 11. Sleep apnea. HOSPITAL COURSE: The patient is a 58-year-old female with history of diastolic heart failure, pulmonary hypertension, COPD, morbid obesity with pickwickian syndrome and sleep apnea. She presented with worsening shortness of breath. O2 on arrival was 70%. The patient is most recently on 4 L of oxygen at home, but has been up as high as 7 L of oxygen at home. Initial evaluation showed hypoxia, mildly elevated BNP. Chest x-ray with pulmonary congestion, possibly slightly worse than previous. She continues to smoke a pack a day. She was thought to have COPD exacerbation and some acute on chronic congestive heart failure. She was treated with steroids, nebulizers, and diuresis. She did have a brisk diuresis with Lasix. She was down almost 10 L at one point. Her creatinine began to increase slightly, at that point, so diuretics had to be held for a couple days, but her creatinine came back down to her baseline and diuretics were restarted at a lower dose. The patient was kept on BiPAP at night and as needed during the day. With nebs, diuresis, and steroids, the patient's dyspnea and hypoxia did eventually return to at or near baseline. She was saturating reasonably well on 5 to 6 L of oxygen at the time of discharge. It was felt that patient had reached maximum benefit of hospitalization. She was discharged home to follow up with her PCP. The patient did have some mild hyperkalemia during the hospitalization despite Lasix, so her home potassium supplementation was not restarted on discharge. Her diabetes was quite uncontrolled for most of the hospitalization, partially due to steroid administration, but patient's A1c was also elevated at 9.5 so, on discharge, her home Lantus was increased to 20 units subcu daily. She stated she generally takes 10 units. Patient's long-term prognosis is likely poor given her numerous comorbidities, continued tobacco abuse, and morbid obesity. DISCHARGE VITAL SIGNS: Temp at 97.7, pulse 53, respirations 18, blood pressure 145/79, O2 saturation is 91% on 6 L via nasal cannula. DISCHARGE DIET: Cardiac diabetic. DISCHARGE MEDICATIONS: Spironolactone 25 mg p.o. daily, hydralazine 25 mg p.o. b.i.d., aspirin 325 management p.o. daily, Bevespi inhaler once a day, clonazepam 1 mg p.o. b.i.d. as needed, fexofenadine 180 mg p.o. daily as needed, gabapentin 600 mg daily, Glimepiride 2 mg p.o. daily, insulin lispro sliding scale as prescribed, metoprolol 100 mg p.o. b.i.d., metformin 500 b.i.d., nitroglycerin 0.4 mg sublingual as needed, [place] 7.5 mg q.6 hours p.r.n. as previously prescribed, omeprazole 40 mg p.o. daily; Plavix 75 mg p.o. daily, Ranexa 500 mg p.o. b.i.d., Sertraline 150 mg p.o. daily, Singulair 10 mg p.o. daily, Symbicort inhaled daily, Welchol 625 mg p.o. b.i.d., Lantus 20 units subcu daily, Lasix 40 p.o. daily, Medrol Dosepak as directed, nicotine patch 21 mg daily for nicotine cessation, Norvasc 5 mg p.o. daily. FOLLOW-UP AND PLAN: Patient discharging home on home oxygen and home BiPAP. Basal insulin increased somewhat. Given patient's frequent need for aggressive diuresis and already borderline kidney function, some consideration may need to be made for taking her off of metformin in the near future. Greater than 30 minutes spent counseling patient and arranging discharge.
== END 2018-09-18 11:28 | disposition home health service (06) | DRG 189 ==
LOC: ED 10:13 → SUATTDRO 14:04 → EDIPHOLD 14:04 → 3S 20:55
PROVIDERS: ATTEND Internal Medicine
CPT/HCPCS: 51702; 71010; 71020; 71045; 71046; 78582; 80048; 80053; 81001; 82550; 82805; 82948; 83036; 83605; 83735; 83880; 84439; 84443; 84484; 85025; 85610; 85730; 87040; 93005; 93010; 93306; 94640; 94660; 94761; 94762; 94799; 96365; 96366; 96375; 99285; A9270; A9539; A9540; C8929; J0696; J1815; J1940; J1956; J2930; J7506; J7512; Q9957; XXXXX

== ENCOUNTER 2019-01-01 20:32 | Inpatient (IN) ==
[2019-01-01] MEDS ORDERED: ASPIRIN PO ONE (20:37)
[2019-01-01 20:58] LABS: BASO# 0.03 X1000 (0.0-0.2); BASO% 0.2 % (0.0-0.8); EOS# 0.26 X1000 (0.0-0.7); EOS% 1.9 % (0.0-10.0); HEMOGLOBIN 14.5 g/dL (12.0-16.0); IMM GRAN# 0.03 X1000 (0.0-0.04); IMM GRAN% 0.2 % (0.0-0.5); LYMPH# 2.03 X1000 (1.2-3.4); MCH 28.8 PG (27-31); MCHC 32.2 g/dL (33-37); MCV 89.5 FL (81-99); MONO# 0.64 X1000 (0.11-0.59); MONO% 4.7 % (1.7-9.3); MPV 11.1 FL (7.4-10.4); NEUT# 10.53 X1000 (1.4-6.5); PLT 273 X1000 (130-400); RBC 5.03 XMIL (4.2-5.4); WBC 13.52 X1000 (4.8-10.8)
[2019-01-01 21:02] LABS: INR 1.05; PROTIME 13.9 Seconds (11.0-16.0)
[2019-01-01 21:03] LABS: PTT 23.3 Seconds (22.3-41.8)
--- NOTE | 2019-01-01 21:08 | PROVIDER DOCUMENTATION ---
HPI-Respiratory General - General Chief Complaint: Shortness of Breath Stated Complaint: resp failure Time Seen by Provider: 01/01/19 20:36 Source: patient Allergies/Adverse Reactions: Patient Allergies Allergy/AdvReac Type Severity Reaction Status Date / Time ESCOBAR Inhibitors Allergy ANAPHYLAXIS Verified 09/12/18 10:57 codeine [Codeine] AdvReac Intermediate NAUSEA/VOMI Verified 09/12/18 10:57 TING ceftriaxone [From Rocephin] AdvReac RASH Verified 09/12/18 12:31 nylon sutures AdvReac RASH Uncoded 09/12/18 10:57 Home Medications: Home Medication List Medication Instructions Recorded Confirmed Last Taken Type Clopidogrel Bisulfate [Plavix] 75 mg PO DAILY 03/05/12 09/12/18 10/10/17 05:00 History Omeprazole 40 mg PO DAILY@0700 03/05/12 09/12/18 10/10/17 05:00 History Spironolactone [Aldactone] 25 mg PO DAILY 03/05/12 09/12/18 10/10/17 05:00 History Clonazepam 1 mg PO BID PRN PRN 04/23/14 09/12/18 10/08/17 21:00 History Ranolazine E.r. [Ranexa] 500 mg PO BID 04/23/14 09/12/18 10/10/17 05:00 History Glimepiride 2 mg PO DAILY 07/23/16 09/12/18 10/09/17 09:00 History Budesonide/Formoterol Fumarate 10.2 gm IH DAILY 10/09/17 09/12/18 10/10/17 05:00 History [Symbicort 160-4.5 Mcg Inhaler] Colesevelam HCl [Welchol] 625 mg PO BID 10/09/17 09/12/18 10/10/17 05:00 History Fexofenadine HCl 180 mg PO PRN 10/09/17 09/12/18 10/09/17 21:00 History Gabapentin 2 cap PO DAILY 10/09/17 09/12/18 10/10/17 05:00 History Insulin Lispro [Humalog Kwikpen 0 unit SQ DIRECTED 10/09/17 09/12/18 10/08/17 History U-100] Metoprolol [Lopressor] 100 mg PO BID 10/09/17 09/12/18 10/10/17 05:00 History Nitroglycerin 0.4 mg SL PRN PRN 10/09/17 09/12/18 10/07/17 History Amlodipine [Norvasc] 5 mg PO DAILY #30 tablet 10/10/17 09/12/18 Unknown Rx Aspirin 325 mg PO DAILY 09/12/18 09/12/18 Unknown History Glycopyrrolate/Formoterol Fum 1 puff INH DAILY 09/12/18 09/12/18 Unknown History [Bevespi Aerosphere Inhaler] Hydralazine [Apresoline] 25 mg PO BID 09/12/18 09/12/18 Unknown History Hydrocodone/APAP 7.5 mg/325 mg 1 ea PO Q6H PRN PRN 09/12/18 09/12/18 Unknown History [[place]-7.5] Metformin HCl 500 mg PO BID 09/12/18 09/12/18 Unknown History Montelukast [Singulair] 1 tab PO DAILY 09/12/18 09/12/18 Unknown History Sertraline HCl 150 mg PO DAILY 09/12/18 09/12/18 Unknown History Furosemide [Lasix] 40 mg PO DAILY #0 09/18/18 09/12/18 10/09/17 09:00 Rx Insulin Glargine [Lantus Insulin] 20 unit SUBQ DAILY unit 09/18/18 Unknown Rx Methylprednisolone [Medrol Dosepak] 4 mg PO DIRECTED #1 pkg 09/18/18 Unknown Rx Nicotine Patch [Nicoderm Patch] 21 mg TD HS patch.td24 09/18/18 Unknown Rx - History of Present Illness-Resp Nature of Presenting Problem: 58yo female with PMH of COPD and CHF who presents with CC of SOB. Patient reports progressive SOB over the last several days as well as increased swelling in legs and belly. The patient reports that she has tried lasixs at home as well as nebulizers. The patient reports baseline 4-5L at home which was not enough for her with her current shortness of breath. Quality of Pain: reports: aching Severity in ED: reports: moderate Timing: reports: still present Context: reports: other (progressive shortness of breath) Cough Quality/Degree: reports: sputum Episode Frequency: chronic episodes Current Respiratory Medication Therapy: Initiated other (oxygen and inhalers) Modifying Factors: improves with: deep breath Associated Symptoms: reports: chest pain/soreness Review of Systems - Adult - REVIEW OF SYSTEMS - ADULT Constitutional: denies: fever Eyes: denies: blurred vision Ears, Nose, Mouth & Throat: reports: hoarseness Cardiovascular: reports: chest pain, edema Respiratory: reports: cough, dyspnea on exertion, excessive sputum production, shortness of breath Gastrointestinal: denies: abdominal pain Genitourinary: denies: dysuria Musculoskeletal: reports: joint pain Integumentary: reports: no symptoms reported Neurological: reports: no symptoms reported Hematologic/Lymphatic: reports: other (no bleeding) Past History - Adult - PAST MEDICAL HISTORY-ADULT Review of Records: reports: Old Records Reviewed Major Childhood Illnesses: reports: denies history Cardiovascular: reports: cardiac disease (cardiac disorder), HTN, hyperlipidemia Respiratory: reports: bronchitis (chronic), COPD, pneumonia, sleep apnea Gastrointestinal: reports: GERD Obstetrical/Gynecological: reports: denies history Genitourinary: reports: denies history Musculoskeletal: reports: other (bone disease) Neurological: reports: denies history Endocrine/Immune: reports: Diabetes Other Conditions: reports: denies history (vision issues from Diabetes), eye problems/injury - PRIOR SURGERIES/PROCEDURES Surgical/Procedure History: reports: hysterectomy, , other (T & A) - IMMUNIZATION STATUS Childhood Immunizations: NUTD Flu Vaccine: NUTD - FAMILY HISTORY Family History: diabetes - SOCIAL HISTORY Smoking: other (1ppd smoking) Provider spent 3-5 mins advising pt. on dangers of tobacco.: Counseled patient to quit smoking Substance Use: none/never Alcohol Use Frequency: never Physical Exam-General - PHYSICAL EXAM-ADULT Initial Vital Signs Reviewed: Yes - CONSTITUTIONAL General Appearance: alert, mild distress - HEAD, EARS, NOSE, MOUTH & THROAT HENMT: normocephalic/atraumatic, moist mucous membranes - RESPIRATORY Respiratory: decreased breath sounds, crackles - CARDIOVASCULAR Cardiovascular: regular rate, rhythm, other (2+ LE edema) - GASTROINTESTINAL (ABDOMEN) Abdominal Exam: non tender - SKIN Integumentary: normal color - NEUROLOGIC Neurologic: grossly normal - PSYCHIATRIC Psych/Mental Status: normal mood/affect - HEART Score HEART Score: History: Slightly Suspicious HEART Score: ECG: Non-Specific Repolarization Disturbance/LBBB/PM HEART Score: Age: 45-65 Years HEART Score: Risk Factors for Atherosclerotic Disease: > or = 3 Risk Factors or History of Atherosclerotic Disease HEART Score: Troponin: < or = Normal Limit Total HEART Score:: 4 Progress - PLAN OF CARE/RESULTS Progress/Plan/Lab Results: Vital Signs - 8 hr 01/01/19 20:31 Temperature 98.7 F Pulse Rate 84 Respiratory Rate 22 Blood Pressure 136/78 O2 Sat by Pulse Oximetry 95 Laboratory Results - last 24 hr 01/01/19 01/01/19 01/01/19 20:43 20:43 20:43 WBC 13.52 H RBC 5.03 Hgb 14.5 Hct 45.0 MCV 89.5 MCH 28.8 MCHC 32.2 L RDW Std Deviation 16.0 H Plt Count 273 MPV 11.1 H Immature Gran % (Auto) 0.2 Neut % (Auto) 78.0 H Lymph % (Auto) 15.0 L Hart % (Auto) 4.7 Eos % (Auto) 1.9 Baso % (Auto) 0.2 Immature Gran # (Auto) 0.03 Neut # (Auto) 10.53 H Lymph # (Auto) 2.03 Hart # (Auto) 0.64 H Eos # (Auto) 0.26 Baso # (Auto) 0.03 PT INR PTT (Actin FS) Sodium 134 L Potassium 4.1 Chloride 97 L Carbon Dioxide 27 Anion Gap 10 BUN 18 Creatinine 1.0 H Estimated GFR/1.73 m2 57 BUN/Creatinine Ratio 18 Glucose 304 H Calculated Osmolality 282 Calcium 9.3 Total Bilirubin 0.35 AST 11 ALT 13 Alkaline Phosphatase 148 H Creatine Kinase 68 Troponin T [id number] Pept Total Protein 7.2 Albumin 4.0 Globulin 3.2 Albumin/Globulin Ratio 1.3 Plasma Lactate 1.4 01/01/19 01/01/19 01/01/19 20:43 20:43 20:43 WBC RBC Hgb Hct MCV MCH MCHC RDW Std Deviation Plt Count MPV Immature Gran % (Auto) Neut % (Auto) Lymph % (Auto) Hart % (Auto) Eos % (Auto) Baso % (Auto) Immature Gran # (Auto) Neut # (Auto) Lymph # (Auto) Hart # (Auto) Eos # (Auto) Baso # (Auto) PT 13.9 INR 1.05 PTT (Actin FS) 23.3 Sodium Potassium Chloride Carbon Dioxide Anion Gap BUN Creatinine Estimated GFR/1.73 m2 BUN/Creatinine Ratio Glucose Calculated Osmolality Calcium Total Bilirubin AST ALT Alkaline Phosphatase Creatine Kinase Troponin T < 0.010 [id number] Pept 278 H Total Protein Albumin Globulin Albumin/Globulin Ratio Plasma Lactate Orders Category Date Time Status Cardiac Monitoring DIRECTED Care 01/01/19 20:38 Active Oxygen Therapy- ED Nursing DIRECTED Care 01/01/19 20:38 Active Saline Loc NOW Care 01/01/19 20:38 Active CHEST-1 VIEW [RAD] Stat Exams 01/01/19 21:03 Completed BLOOD CULTURE [BLDCUL] Stat Lab 01/01/19 21:59 Results CBC WITH ELECTRONIC DIFF [HEME] Stat Lab 01/01/19 20:43 Completed CK PROFILE [SP CHEM] Stat Lab 01/01/19 20:43 Completed COMPREHENSIVE METABOLIC PANEL [CHEM] Stat Lab 01/01/19 20:43 Completed LACTATE, PLASMA [CHEM] Stat Lab 01/01/19 20:43 Completed PRO B-NATRIURETIC PEPTIDE Stat Lab 01/01/19 20:43 Completed PROTIME WITH INR [COAG] Stat Lab 01/01/19 20:43 Completed PTT [COAG] Stat Lab 01/01/19 20:43 Completed TROPONIN T Stat Lab 01/01/19 20:43 Completed Aspirin Med 01/01/19 20:37 Discontinued 325 mg PO NOW ONE CP/SOB/Palp >45 yrs of Age Stat Oth 01/01/19 20:37 Ordered EKG [EKG] Stat Ther 01/01/19 20:30 Draft Result Diagrams: 01/01/19 20:43 01/01/19 20:43 - EKG 1 EKG Interpretation (*Must complete 3 of following elements*): Abnormal Rate: 68 Rhythm: sinus [place]: normal QRS: normal [place] Interval: normal ST Wave: non-specific ST changes Prior EKG Comparison: unchanged from prior Departure - Departure Date of Disposition Decision: 01/01/19 Time of Disposition Decision: 22:22 DIAGNOSIS: CHF (congestive heart failure) Qualifiers: Heart failure type: diastolic Heart failure chronicity: chronic Qualified Code(s): I50.32 - Chronic diastolic (congestive) heart failure Disposition: ADMITTED INPATIENT 09 Certified Medical Emergency: Emergent Condition: Fair Referrals and Follow-Ups: Aldair Galvan MD [Primary Care Provider] - - Critical Care Note This patient required my direct & personal management of CC.: No Attestation - Physician/ JEFF Attestation Patient care was provided by Advanced Practice Provider:: No The physician spent face to face time with patient:: Yes Advanced Practice Provider documentation review:: Supervising physician onsite and consulted in the evaluation and care of this patient. The physician did have a face to face encounter with the patient.
--- NOTE | 2019-01-01 21:18 | EKG Report ---
Test Performed on : 01/01/2019 8:30:03 PM Test Reason : SOB Blood Pressure : / mmHG Vent. Rate : 068 BPM Atrial Rate : 068 BPM P-R Int : 158 ms QRS Dur : 080 ms QT Int : 432 ms P-R-T Axes : 067 077 059 degrees QTc Int : 459 ms Sinus rhythm. with premature atrial complexes. ST & T wave abnormality, consider anterior ischemia Abnormal ECG When compared with ECG of 17-SEP-2018 02:15, premature atrial complexes. are now present ST now depressed in Anterior leads Unconfirmed Result
[2019-01-01 21:24] LABS: ALB/GLOB RATIO 1.3; CALCIUM 9.3 mg/dL (8.8-10.2); POTASSIUM 4.1 mmol/L (3.5-5.1); TOTAL BILIRUBIN 0.35 mg/dL (0.20-1.00); TOTAL PROTEIN 7.2 g/dL (6.3-8.3)
--- NOTE | 2019-01-01 21:43 | Diag Imaging Result Doc PS360 ---
EXAM: CHEST-1 VIEW HISTORY: sob TECHNIQUE: Chest single view COMPARISON: 09/17/2018 FINDINGS: The lungs are well expanded. The heart is not enlarged. The vessels are mildly distended. Small basilar infiltrates. No effusion identified. IMPRESSION: Pulmonary edema with basilar infiltrates Electronically signed by Esdras Lares 01/01/2019 9:41 PM
[2019-01-01] MEDS ORDERED: MAGNESIUM SULFATE 2 GM/S.W.I. 2 GM/50 ML IVPB IV ONE (23:04)
[2019-01-02] MEDS ORDERED: DUONEB (A & A) INH ONE (00:51)
[2019-01-02] MEDS ORDERED: KLONOPIN PO ONE (00:51)
[2019-01-02] MEDS ORDERED: HUMULIN R SUBQ ONE (00:53)
[2019-01-02 01:17] LABS: BLOOD TYPE ARTERIAL; SAMPLE BLOOD
[2019-01-02 01:18] LABS: ALLEN TEST YES; BE 0.1 mmoll (-3.0-3.0); HCO3-(ACT) 24.9 mmoll (20.0-26.0); METHB 1.2 % (0.0-1.5); MODALITY BI PAP; O2(CT) 18.9 mL/dL (15.0-23.0); O2HB 92.8 % (95.0-99.0); PCO2(98.6) 46 mmHg (35-45); PO2(98.6) 98 mmHg (60-100); SAO2 98.3 % (95.0-100.0); THB 14.4 g/dL (11.5-17.4); pH(98.6) 7.36 (7.35-7.45)
[2019-01-02 03:28] LABS: URINE SOURCE CLEAN CATCH
[2019-01-02 03:31] LABS: BILIRUBIN URINE NEGATIVE (NEGATIVE); BLOOD URINE NEGATIVE (NEGATIVE); COLOR YELLOW; GLUCOSE URINE NEGATIVE (NEGATIVE); KETONE URINE NEGATIVE (NEGATIVE); LEUKOCYTES URINE NEGATIVE (NEGATIVE); NITRITE URINE NEGATIVE (NEGATIVE); PROTEIN URINE TRACE mg/dL (NEGATIVE); SP GRAVITY URINE 1.015; TURBIDITY URINE CLEAR (CLEAR); UROBILINOGEN URINE NORMAL (NORMAL)
[2019-01-02 03:32] LABS: UR EPITHELIAL CELLS <10 /HPF (<10); URINE BACTERIA NEGATIVE /HPF; URINE RBC <10 /HPF (<10); URINE WBC <10 /HPF (<10)
[2019-01-02] MEDS ORDERED: LASIX IV SCH (06:45)
[2019-01-02] MEDS ORDERED: TYLENOL PO PRN (06:49)
[2019-01-02] MEDS ORDERED: ZOFRAN IV PRN (06:49)
[2019-01-02] MEDS: LEVAQUIN 750 MG in NS 150 ML IV SCH (07:19)
--- NOTE | 2019-01-02 07:32 | EKG Report ---
Test Performed on : 01/02/2019 07:20:05 AM Test Reason : Hx of CHF,SOB Blood Pressure : / mmHG Vent. Rate : 065 BPM Atrial Rate : 065 BPM P-R Int : 176 ms QRS Dur : 100 ms QT Int : 468 ms P-R-T Axes : 067 075 050 degrees QTc Int : 486 ms Normal sinus rhythm. ST & T wave abnormality, consider anterior ischemia Prolonged QT Abnormal ECG When compared with ECG of 01-JAN-2019 20:30, (Unconfirmed) premature atrial complexes. are no longer present Confirmed by Torrie Tellez MD ([id number]) on 01/02/2019 12:11:25 PM
[2019-01-02 08:03] LABS: BASO# 0.02 X1000 (0.0-0.2); BASO% 0.2 % (0.0-0.8); EOS# 0.29 X1000 (0.0-0.7); EOS% 2.2 % (0.0-10.0); IMM GRAN# 0.02 X1000 (0.0-0.04); IMM GRAN% 0.2 % (0.0-0.5); LYMPH# 2.54 X1000 (1.2-3.4); LYMPH% 19.5 % (20.5-51.1); MCH 28.9 PG (27-31); MCHC 32.6 g/dL (33-37); MCV 88.7 FL (81-99); MONO# 0.73 X1000 (0.11-0.59); MONO% 5.6 % (1.7-9.3); MPV 11.1 FL (7.4-10.4); NEUT# 9.43 X1000 (1.4-6.5); NEUT% 72.3 % (42.2-75.2); PLT 251 X1000 (130-400); RBC 4.85 XMIL (4.2-5.4); WBC 13.03 X1000 (4.8-10.8)
[2019-01-02] MEDS: DUONEB (A & A) INH SCH ×5 (08:21→23:11)
[2019-01-02 08:41] LABS: CALCIUM 9.2 mg/dL (8.8-10.2); CREATININE 1.1 mg/dL (0.5-0.9); MAGNESIUM 2.2 mg/dL (1.5-2.7); POTASSIUM 4.5 mmol/L (3.5-5.1)
[2019-01-02] MEDS: ZOLOFT PO SCH (09:35)
[2019-01-02] MEDS: WELCHOL PO SCH ×2 (09:35→22:42)
[2019-01-02] MEDS: LANTUS INSULIN SUBQ SCH (09:35)
[2019-01-02] MEDS: ALDACTONE PO SCH (09:36)
[2019-01-02] MEDS: SINGULAIR PO SCH (09:36)
[2019-01-02] MEDS: PLAVIX PO SCH (09:36)
[2019-01-02] MEDS: LASIX IV SCH (09:36)
[2019-01-02] MEDS: RANEXA PO SCH ×2 (09:36→22:42)
[2019-01-02] MEDS: ASPIRIN PO SCH (09:36)
[2019-01-02] MEDS: NORVASC PO SCH (09:36)
[2019-01-02] MEDS: LOPRESSOR PO SCH ×2 (09:36→22:42)
[2019-01-02] MEDS: NICODERM PATCH TD PRN (09:46)
[2019-01-02] MEDS: LOVENOX SUBQ SCH (09:50)
[2019-01-02] MEDS: PRILOSEC PO SCH (09:50)
[2019-01-02] MEDS: HUMULIN R SUBQ SCH ×4 (10:52→22:45)
--- NOTE | 2019-01-02 13:13 | HISTORY AND PHYSICAL ---
PRIMARY CARE PROVIDER: Dr. Galvan. DATE: 01/02/2019 CHIEF COMPLAINT: Shortness of breath. HISTORY OF PRESENT ILLNESS: Ms. Huynh is a 58-year-old female with a past medical history most notable for severe COPD requiring chronic oxygenation. The patient at this time states that she wears a continuous portable BiPAP. She also has a history of chronic hypercapnic and hypoxic respiratory failure as well as congestive heart failure, hypertension and diabetes mellitus. The patient states that for about 3 days now that she has had progressive worsening shortness of breath. She also has had progressive worsening swelling in her bilateral lower extremities. The patient states that she does wear her continuous BiPAP but even with it, when she would just get up and walk across the room to the bathroom, she would become very fatigued, would have to sit down and rest. She also reports that she has had worsening cough as well, though she denies any known fever, body aches, or chills. She denies any headache, chest pain, abdominal pain, nausea, vomiting, or diarrhea. She denies any dysuria. The patient does have orthopnea. She is not able to lie flat to sleep at night, but she denies any proximal nocturnal dyspnea. She denies any recent changes in any of her medications or any new medications being prescribed to her. In the ER, the patient was noted to have some mild leukocytosis. She did have a mildly elevated proBNP, though her chest x-ray did show pulmonary edema with some infiltrates. She does have reported symptoms as mentioned above and the bilateral lower extremity edema. She also did have some JVD noted as well. Though cardiac enzymes were negative, her EKG showed sinus rhythm with premature atrial complexes at a rate of 68 with a QTc of 459. The patient at this time will be admitted for acute respiratory failure and congestive heart failure. REVIEW OF SYSTEMS: A 14 point review of systems was conducted with the patient and all were negative except for pertinent positives mentioned in above HPI. PAST MEDICAL HISTORY: 1. CVA. 2. Severe COPD requiring chronic oxygenation with a portable BiPAP machine. 3. Chronic hypercapnic and hypoxic respiratory failure. 4. Diabetes mellitus type 2. 5. Congestive heart failure. 6. Hypertension. 7. Hypothyroidism. 8. Obstructive sleep apnea. 9. History of coronary artery disease. 10. Hyperlipidemia. PAST SURGICAL HISTORY: 1. section. 2. Hysterectomy. 3. Tonsillectomy. FAMILY HISTORY: Positive for coronary artery disease. SOCIAL HISTORY: The patient reports that she lives with family. She does smoke a pack of cigarettes a day and has done so since age 11. She denies any alcohol or illicit drug use. ALLERGIES: Patient has allergies to ESCOBAR inhibitors, codeine, adhesive tape, ceftriaxone, and nylon sutures. HOME MEDICATIONS: 1. Norvasc 5 mg p.o. daily. 2. Aspirin 325 mg p.o. daily. 3. Clonazepam 1 mg p.o. b.i.d. p.r.n. 4. Plavix 75 mg p.o. daily. 5. Welchol 625 mg p.o. b.i.d. 6. Fexofenadine 180 mg p.o. p.r.n. 7. Lasix 40 mg p.o. daily. 8. Gabapentin 2 capsules p.o. daily. 9. Glimepiride 2 mg p.o. daily. 10. Bevespi Aerosphere inhaler 1 puff inhaled daily. 11. [place] 7.5 one 1 tablet p.o. q.6 hours p.r.n. for pain. 12. Lantus 20 units subcutaneous daily. 13. Lispro KwikPen subcutaneous as directed. 14. Metformin 500 mg p.o. before meals. 15. Metoprolol 100 mg p.o. b.i.d. 16. Singulair 1 tablet p.o. daily. 17. NicoDerm Patch 21 mg transdermally daily. 18. Nitroglycerin 0.4 mg sublingual p.r.n. as directed. 19. Omeprazole 40 mg p.o. b.i.d. 20. Ranexa 500 mg p.o. b.i.d. 21. Sertraline 150 mg p.o. daily. 22. Aldactone 25 mg p.o. daily. DIAGNOSTIC DATA: [place] [address], hemoglobin 14.5, hematocrit 45, platelet count is 273,000. PT 13.9, INR 1.05, PTT is 23.3. Sodium 134, potassium 4.1, chloride 97, serum bicarb is 27, BUN 18, creatinine 1, glucose 304, calcium 9.3. Liver function tests within normal limits, alkaline phosphatase slightly elevated at 148. CK 68, troponin less than 0.01. ProBNP is 278. Lactate is 1.4. Arterial blood gases were obtained on BiPAP with FiO2 of 40%, pH 7.36, pCO2 is 46, pO2 is 98, HC03 was 24.9 with a base excess of 0.1, O2 saturation was 98.3. Carboxyhemoglobin was 4.4. Urinalysis was obtained via clean catch, was positive for trace protein but is otherwise negative for glucose, ketones, blood, nitrites, leukocytes, white blood cells, or bacteria. EKG showed sinus rhythm with premature atrial complexes with a rate of 68 and a QTc of 459. Chest x-ray showed pulmonary edema with some infiltrates. PHYSICAL EXAMINATION: GENERAL: Ms. Huynh is a very pleasant, obese, 58-year-old female. She was resting on the stretcher. She was in no acute distress. She was awake, alert, and able answer questions appropriately. HEENT: Head is atraumatic, normocephalic. Pupils are equal, round, reactive to light, were 3 mm bilaterally and brisk. Oral mucosa is moist. Oropharynx is clear. NECK: Supple. Trachea midline. The patient does have some slight JVD noted upon examination. CARDIOVASCULAR: Patient has S1, S2 present. No murmurs or gallops were appreciated. The patient did have some ambient respiratory noise due to her BiPAP machine which made auscultation difficult. PULMONARY: The patient has symmetrical chest expansion bilaterally. Lung sounds in the upper anglin were pretty clear to auscultation, though in bilateral anglin she was diminished and did have some faint bilateral crackles. ABDOMEN: Soft. Does not appear to be distended but she does have acute abdomen noted. Bowel sounds are present and all 4 quadrants were normoactive. She was nontender upon palpation. EXTREMITIES: No cyanosis. The patient does have edema noted bilateral lower extremities. This is inferior to her knees down, it was 1+ pitting edema, though pulse, motor and sensory is intact in all extremities. Radial and pedal pulses were 2+ bilaterally. INTEGUMENTARY: The patient's skin is pink, warm, and dry. NEUROLOGICAL: Patient is alert and oriented to person, place, time and situation. She can move all extremities. There are no focal neurological deficits noted. ASSESSMENT AND PLAN: 1. Acute on chronic hypercapnic and hypoxic respiratory failure. 2. Severe chronic obstructive pulmonary disease requiring continuous oxygenation with a portable BiPAP machine. For numbers 1 and 2, we will continue with BiPAP therapy. The patient is tolerating this well. Her arterial blood gases are within normal limits. We will perform aggressive pulmonary toilet with incentive spirometry, scheduled DuoNeb treatments, frequent encouragement of turn, cough and deep breathing. We will continue to follow closely. 3. Congestive heart failure. The patient does have a history of congestive heart failure with last known ejection fraction of 65 to 70 percent. The patient does have orthopnea. She reported worsening shortness of breath. She does have crackles in bilateral bases as well as increased swelling in her bilateral lower extremities, and did have some JVD noted. She just takes 40 of Lasix daily p.o. We will increase this a bit, giving her 40 daily IV. She also takes spironolactone as well. We will continue this also, as well as her regular cardiac medications. She did just recently have an echocardiogram within the last few months. We will hold off on ordering a repeat. We will monitor her response to her treatments. We will do a series of cardiac enzymes and we will repeat an EKG this morning. We will continue to follow closely. 4. Hypertension. We will continue her regularly prescribed antihypertensive medications. 5. Hyperlipidemia. We will continue her regularly prescribed medicines for this as well. 6. Possible pneumonia. Chest x-ray did mention some infiltrates. The patient has reported worsening shortness of breath and now a cough. Though she denies any fever, body aches, or chills, she does have leukocytosis noted and we will start her on Levaquin. She has an allergy to ceftriaxone. Blood cultures and sputum culture are ordered. 7. Diabetes mellitus type 2. We will continue her Lantus and place her on a sliding scale insulin. 8. Deep vein thrombosis prophylaxis will be provided with Lovenox 40 mg subcutaneously q.24 hours. The patient has been placed on the medical floor with telemetry. She will have vital signs q.4 hours. We will do strict intake and output, incentive spirometry. We will repeat a CBC and BMP this morning. We will do a series of cardiac enzymes. Further orders and recommendations pending hospital course, diagnostic studies, and physician evaluation. Dictated by IRA Mcgee for Grabiel Corcoran MD I have performed a face to face diagnostic evaluation. Labs/ Xrays- reviewed. Exam- chest - rhonchi, CV- regular. A/P- COPD exacerbation, Admit, Bipap, duo pollo Corcoran cc: Grabiel Corcoran MD [facility]
[2019-01-02] MEDS ORDERED: VANCOMYCIN IV PER PHARMACY MISC SCH (21:30)
[2019-01-02] MEDS: KLONOPIN PO PRN (22:42)
[2019-01-02] MEDS ORDERED: VANCOMYCIN 2,500 MG in NS 500 ML IV ONE (23:00)
--- NOTE | 2019-01-03 00:09 | CONSULTATION ---
DATE OF CONSULTATION: 01/02/2019 REQUESTING PROVIDER: IRA Mcgee. REASON FOR CONSULTATION: Acute respiratory failure, pulmonary edema. HISTORY OF PRESENT ILLNESS: This is a 58-year-old female with a medical history of severe COPD with chronic hypercapnic and hypoxemic respiratory failure, obstructive sleep apnea, morbid obesity, cerebral vascular accident, diabetes mellitus type 2, congestive heart failure, hypertension, hypothyroidism, coronary artery disease, and hyperlipidemia. She presented to the ER last night with worsening shortness of breath and pedal edema. Initial workup in the ER revealed acute on chronic hypercapnic and hypoxemic respiratory failure, congestive heart failure exacerbation with pulmonary edema and possible pneumonia. She has been admitted to the medical floor for further evaluation and management. The patient currently is sitting on the edge of the bed with her roommate at the bedside. She is on a BiPAP mask with nasal cannula at 4 L. She reported some congested nose, dry cough, sore throat, shortness of breath with activities and bilateral lower extremity edema. She reported she uses BiPAP during the daytime and CPAP at nighttime since last April. She has been increasing her oxygen from 2 to 3 L up to 4 to 6 L recently. And she can't tolerate lying flat. She reports no fever, chill, chest pain, palpitation, bowel habit change, or discomfort with urination. She also reports some chronic issues with her right ear so that she had difficulty hearing since last April, but it has been improved recently. PAST MEDICAL HISTORY: 1. Severe COPD, required home oxygen and a portable BiPAP machine during the daytime per Dr. De Leon". 2. Chronic hypercapnic and hypoxemic respiratory failure. 3. Obstructive sleep apnea, on nocturnal CPAP at home per Dr. Mendoza. 4. Morbid obesity. Current BMI 48.7. 5. Ongoing tobacco abuse. 6. Cerebrovascular accident. 7. Diabetes mellitus type 2. 8. Congestive heart failure. 9. Hypertension. 10. Hypothyroidism. 11. Coronary artery disease. 12. Hyperlipidemia. PAST SURGICAL HISTORY: 1. section. 2. Hysterectomy. 3. Tonsillectomy. SOCIAL HISTORY: The patient lives at home with her friend. She smokes 1 pack of cigarettes per day currently, and she started smoking at age of 11. She reports no history of alcohol or illicit drug use. FAMILY HISTORY: Positive for coronary artery disease. ALLERGIES: ESCOBAR inhibitors, codeine, adhesive tape, ceftriaxone, and nylon sutures. REVIEW OF SYSTEMS: A 10-point review of systems was conducted and the pertinent is listed within the HPI, otherwise noncontributory. PHYSICAL EXAMINATION: Vital Signs: Temperature 97.3, blood pressure 117/72, pulse 75, respiratory rate 16, oxygen saturation 92% on nasal cannula at 4 L. General: Morbidly obese, sitting on the edge of the bed with no acute distress noted. HEENT: Atraumatic, normocephalic. Trachea midline. Mucosa pink and moist. Respiratory: Increased work of breathing, especially when patient takes the BiPAP mask off. Symmetrical excursion. Auscultation revealed diminished breathing sounds bibasilarly with some early inspiratory crackles bibasilarly. Cardiovascular: Regular rate and rhythm. Gastrointestinal: Nontender, soft, mildly distended, obese with normoactive bowel sounds in all 4 quadrants. Extremities: Bilateral lower extremity pitting edema 1+. No cyanosis. No clubbing. Dorsalis pedis 1+ bibasilar bilaterally. Neurologic: Alert and oriented x3. Speech fluent. Follows commands. LAB DATA: White blood cells 13.03, hemoglobin 14.0, hematocrit 43.0, platelet 251,000. Sodium 137, potassium 4.5, chloride 99, carbon dioxide 21, BUN 20, creatinine 1.1. Glucose 239. ABG, pH 7.36, pCO2 of 46, pO2 of 98, HCO3 of 24.9, base excess 0.1, and oxyhemoglobin 92.8 on BiPAP with FiO2 40% and pressure 20/6. IMAGING DATA: Chest x-ray on 01/01/2019 showed pulmonary edema with basilar infiltrates. ASSESSMENT: This is a 58-year-old female with a medical history of severe chronic obstructive pulmonary disease, chronic hypercapnic and hypoxemic respiratory failure, obstructive sleep apnea, morbid obesity, ongoing tobacco abuse, cerebral vascular accident, diabetes mellitus type 2, congestive heart failure, hypertension, hypothyroidism, coronary artery disease, and hyperlipidemia. She has been admitted since yesterday with acute on chronic hypercapnic and hypoxemic respiratory failure, congestive heart failure with pedal edema, pulmonary edema, and mildly elevated proBNP, and possible pneumonia. 1. Acute on chronic hypoxemic hypercapnic respiratory failure. Per patient, she has been using portable BiPAP at home during the daytime and CPAP at bedtime with oxygen 4 to 6 L recently, and currently patient tolerated BiPAP a with FiO2 40% and pressure 20/6, so it is basically close to patient's baseline. 2. Severe chronic obstructive pulmonary disease. No exacerbation noted at this time. 3. Congestive heart failure. The patient did show some sign and symptoms of mild exacerbation with pedal edema, pulmonary edema, and mildly elevated proBNP . 4. Possible pneumonia. Chest x-ray on 01/01/2019 showed small basilar infiltrates. Lab also revealed leukocytosis with white blood cell 13.52, initially. PLAN: 1. Continue supplemental oxygen and BiPAP as needed. 2. Continue antibiotics and bronchodilators. Continue diuretics. 3. Follow up with CBC, CMP, sputum culture and blood culture. Follow up with chest x-ray and ABG, if indicated. 4. Continue GI and DVT prophylaxis. 5. Further recommendations pending hospital course. Thank you for the courtesy of this consult. Dictated by IRA Shafer for Abdelrahman Recinos MD cc: IRA Shafer MD Jennifer Lentz, CRNP [facility]
[2019-01-03] MEDS: DUONEB (A & A) INH SCH ×6 (03:10→23:15)
[2019-01-03] MEDS: LEVAQUIN 750 MG in NS 150 ML IV SCH (07:02)
[2019-01-03] MEDS: PRILOSEC PO SCH (07:04)
[2019-01-03] MEDS: LOVENOX SUBQ SCH (07:04)
[2019-01-03] MEDS: HUMULIN R SUBQ SCH ×4 (07:05→21:49)
[2019-01-03 07:31] LABS: BASO# 0.03 X1000 (0.0-0.2); BASO% 0.3 % (0.0-0.8); EOS# 0.39 X1000 (0.0-0.7); EOS% 3.4 % (0.0-10.0); HEMATOCRIT 41.1 % (37.0-47.0); HEMOGLOBIN 13.2 g/dL (12.0-16.0); IMM GRAN# 0.05 X1000 (0.0-0.04); IMM GRAN% 0.4 % (0.0-0.5); LYMPH# 1.83 X1000 (1.2-3.4); LYMPH% 16.2 % (20.5-51.1); MCH 28.9 PG (27-31); MCHC 32.1 g/dL (33-37); MCV 90.1 FL (81-99); MONO% 6.2 % (1.7-9.3); MPV 11.1 FL (7.4-10.4); NEUT# 8.33 X1000 (1.4-6.5); NEUT% 73.5 % (42.2-75.2); PLT 227 X1000 (130-400); RBC 4.56 XMIL (4.2-5.4); RDW 15.7 % (11.5-14.5); WBC 11.33 X1000 (4.8-10.8)
[2019-01-03 07:56] LABS: ALB/GLOB RATIO 1.7; ALBUMIN 3.8 g/dL (3.5-5.0); CALCIUM 9.1 mg/dL (8.8-10.2); CREATININE 1.1 mg/dL (0.5-0.9); POTASSIUM 4.2 mmol/L (3.5-5.1); TOTAL BILIRUBIN 0.44 mg/dL (0.20-1.00); TOTAL PROTEIN 6.1 g/dL (6.3-8.3)
[2019-01-03] MEDS: SINGULAIR PO SCH (08:51)
[2019-01-03] MEDS: ZOLOFT PO SCH (08:51)
[2019-01-03] MEDS: ALDACTONE PO SCH (08:51)
[2019-01-03] MEDS: LASIX IV SCH (08:51)
[2019-01-03] MEDS: ASPIRIN PO SCH (08:51)
[2019-01-03] MEDS: PLAVIX PO SCH (08:51)
[2019-01-03] MEDS: RANEXA PO SCH ×2 (08:51→21:50)
[2019-01-03] MEDS: LOPRESSOR PO SCH ×2 (08:51→21:50)
[2019-01-03] MEDS: NORVASC PO SCH (08:52)
[2019-01-03] MEDS: WELCHOL PO SCH ×2 (08:52→21:50)
[2019-01-03] MEDS: LANTUS INSULIN SUBQ SCH (08:52)
[2019-01-03] MEDS ORDERED: VANCOMYCIN 1,550 MG in NS 250 ML IV SCH (11:00)
--- NOTE | 2019-01-03 15:33 | PROGRESS NOTE ---
DATE: 01/03/2019 SUBJECTIVE: As per the patient, she is feeling better. She is still using the BiPAP machine. She has been tolerating p.o. and having bowel movements, but she is still short of breath. I will continue with the same management today. A sputum culture and blood cultures so far are negative. I will stop the vancomycin. I will continue with levofloxacin. OBJECTIVE: Vital Signs: Temperature 98.2 degrees, pulse 54, respiratory rate 16, blood pressure 123/67, oxygen saturation 85 on the BiPAP machine. HEENT: Head normocephalic, no trauma. PERRLA. Neck: Supple. I cannot see JVD because of her neck size. Central trachea. Chest: Decreased breath sounds globally with prolonged expiratory phase and end-faint expiratory wheezing. Abdomen: Soft, obese, protuberant. Extremities: Trace lower extremity edema. No clubbing. No cyanosis. Neurological examination: The patient is alert. She is oriented x3. No focal deficits. LABORATORY: WBC 11.3, hemoglobin 13.2, hematocrit 41.1, platelets 227. Sodium 135, potassium 4.2, chloride 99, bicarbonate 23. BUN 20, creatinine 1.1, glucose 230, calcium 9.1. AST 8, ALT 10, alkaline phosphatase 124, albumin 3.8. ASSESSMENT AND PLAN: 1. Acute on chronic hypercarbic and hypoxemic respiratory failure. Continue with same management for now. Antibiotics and breathing treatment, continue with the BiPAP machine as needed. CPAP during the night. Pulmonary Department on board. 2. Congestive heart failure. Continue with diuretics, likely diastolic. At the beginning we noticed some jugular venous distention, but not anymore. I believe she is getting better. 3. Hypertension. Continue with home medications. 4. Hyperlipidemia. Stable. Continue home medication. 5. Bilateral pneumonia at the bases. Continue with levofloxacin. I will stop the vancomycin. 6. Type 2 diabetes. Continue with the home medications. 7. Deep vein thrombosis prophylaxis with Lovenox. cc: Robles Rod MD
[2019-01-03] MEDS ORDERED: VANCOMYCIN IV PER PHARMACY MISC SCH (18:00)
[2019-01-03] MEDS: KLONOPIN PO PRN (21:54)
[2019-01-03] MEDS: NICODERM PATCH TD PRN (22:00)
[2019-01-04] MEDS: DUONEB (A & A) INH SCH ×6 (03:32→23:20)
[2019-01-04] MEDS: LEVAQUIN 750 MG in NS 150 ML IV SCH (06:32)
[2019-01-04] MEDS: HUMULIN R SUBQ SCH ×3 (06:32→20:30)
[2019-01-04] MEDS: LOVENOX SUBQ SCH (06:34)
[2019-01-04] MEDS: PRILOSEC PO SCH (06:34)
[2019-01-04 07:01] LABS: BASO# 0.04 X1000 (0.0-0.2); BASO% 0.4 % (0.0-0.8); EOS# 0.37 X1000 (0.0-0.7); EOS% 3.6 % (0.0-10.0); HEMATOCRIT 38.7 % (37.0-47.0); HEMOGLOBIN 12.2 g/dL (12.0-16.0); IMM GRAN# 0.03 X1000 (0.0-0.04); IMM GRAN% 0.3 % (0.0-0.5); LYMPH# 1.52 X1000 (1.2-3.4); MCH 28.6 PG (27-31); MCHC 31.5 g/dL (33-37); MCV 90.6 FL (81-99); MONO# 0.67 X1000 (0.11-0.59); MONO% 6.6 % (1.7-9.3); MPV 10.9 FL (7.4-10.4); NEUT# 7.53 X1000 (1.4-6.5); NEUT% 74.1 % (42.2-75.2); PLT 228 X1000 (130-400); RBC 4.27 XMIL (4.2-5.4); RDW 15.6 % (11.5-14.5); WBC 10.16 X1000 (4.8-10.8)
[2019-01-04 07:18] LABS: CALCIUM 8.7 mg/dL (8.8-10.2); CREATININE 1.3 mg/dL (0.5-0.9); POTASSIUM 4.2 mmol/L (3.5-5.1)
--- NOTE | 2019-01-04 08:35 | PROGRESS NOTE ---
DATE: 01/04/2019 SUBJECTIVE: This patient is feeling better. She is still using the BiPAP machine. She has been tolerating p.o. and having bowel movement. We do have a positive blood culture x2 that showed gram-positive cocci. She received some doses of vancomycin, which I have stopped, and I put this patient on Zyvox due to her chronic kidney disease. I have requested a new blood culture today, and I will wait for the final results and sensitivity. OBJECTIVE: Vital Signs: Temperature 97.7 degrees, pulse 58, respiratory rate 14, blood pressure 106/66 oxygen saturation 90 on the BiPAP machine. HEENT: Head normocephalic, no trauma. PERRLA. Neck: Supple. I cannot see JVD because of her neck size. Central trachea. Chest: She has decreased breath sounds globally with prolonged expiratory phase and end- faint expiratory wheezing. Abdomen: Soft, obese, protuberant. Extremities: Trace lower extremity edema. No clubbing. No cyanosis. Neurological examination: The patient is alert. She is oriented x3. No focal deficits. LABORATORY: WBC 10.1, hemoglobin 12.2, hematocrit 38.7 and platelets 228,000. Sodium 134, potassium 4.2, chloride 98, bicarbonate 28. BUN 18, creatinine 1.3, glucose 248, calcium 8.7. ASSESSMENT AND PLAN: 1. Acute on chronic hypercarbic and hypoxemic respiratory failure. Continue with same management for now, antibiotics and breathing treatment. Continue with the BiPAP machine as needed, CPAP during the night. Pulmonary Department on board. 2. Bacteremia due to gram-positive cocci. I have requested a new blood culture today, she received already some doses of vancomycin, and I will switch it to Zyvox due to her chronic kidney disease. 3. Chronic kidney disease, aware as above. 4. Hypertension. Continue home medications. 5. Hyperlipidemia, stable. Continue home medications. 6. Bilateral pneumonia at the bases. Continue with levofloxacin; now she is on Zyvox as well. 7. Type 2 diabetes. Continue with insulin; Lantus has been increased from 20 to 30 units daily since her blood sugar has been elevated. 8. Deep vein thrombosis prophylaxis with Lovenox. cc: Robles Rod MD
[2019-01-04] MEDS: RANEXA PO SCH ×2 (09:30→20:33)
[2019-01-04] MEDS: NORVASC PO SCH (09:30)
[2019-01-04] MEDS: ASPIRIN PO SCH (09:30)
[2019-01-04] MEDS: ALDACTONE PO SCH (09:30)
[2019-01-04] MEDS: WELCHOL PO SCH ×2 (09:30→20:33)
[2019-01-04] MEDS: PLAVIX PO SCH (09:30)
[2019-01-04] MEDS: LOPRESSOR PO SCH ×2 (09:30→20:32)
[2019-01-04] MEDS: SINGULAIR PO SCH (09:30)
[2019-01-04] MEDS: LASIX IV SCH (09:31)
[2019-01-04] MEDS: ZOLOFT PO SCH (09:31)
[2019-01-04] MEDS: ZYVOX 600 MG/D5W 600 MG/300 ML IVPB IV SCH ×2 (09:31→20:29)
[2019-01-04] MEDS: LANTUS INSULIN SUBQ SCH (09:31)
[2019-01-04] MEDS: KLONOPIN PO PRN (20:32)
[2019-01-05] MEDS: DUONEB (A & A) INH SCH ×6 (03:36→22:48)
[2019-01-05 05:02] LABS: ALLEN TEST YES; BE 1.1 mmoll (-3.0-3.0); BLOOD TYPE ARTERIAL; HCO3-(ACT) 25.7 mmoll (20.0-26.0); METHB 0.7 % (0.0-1.5); O2(CT) 16.7 mL/dL (15.0-23.0); O2HB 94.7 % (95.0-99.0); PO2(98.6) 78 mmHg (60-100); SAMPLE BLOOD; SAO2 97.7 % (95.0-100.0); THB 12.5 g/dL (11.5-17.4); pH(98.6) 7.33 (7.35-7.45)
[2019-01-05 05:04] LABS: MODALITY BI PAP; PCO2(98.6) 53 mmHg (35-45)
[2019-01-05] MEDS: HUMULIN R SUBQ SCH ×4 (06:17→16:45)
[2019-01-05] MEDS: PRILOSEC PO SCH (06:19)
[2019-01-05] MEDS: LOVENOX SUBQ SCH (06:20)
[2019-01-05] MEDS: ZYVOX 600 MG/D5W 600 MG/300 ML IVPB IV SCH ×2 (06:36→09:29)
[2019-01-05] MEDS: LEVAQUIN 750 MG in NS 150 ML IV SCH (07:02)
[2019-01-05 07:16] LABS: CREATININE 1.4 mg/dL (0.5-0.9); POTASSIUM 4.2 mmol/L (3.5-5.1)
[2019-01-05] MEDS: SINGULAIR PO SCH (09:29)
[2019-01-05] MEDS: WELCHOL PO SCH ×2 (09:29→20:47)
[2019-01-05] MEDS: LOPRESSOR PO SCH ×2 (09:29→20:47)
[2019-01-05] MEDS: ASPIRIN PO SCH (09:29)
[2019-01-05] MEDS: PLAVIX PO SCH (09:30)
[2019-01-05] MEDS: NORVASC PO SCH (09:30)
[2019-01-05] MEDS: RANEXA PO SCH ×2 (09:30→20:47)
[2019-01-05] MEDS: LANTUS INSULIN SUBQ SCH (09:30)
[2019-01-05] MEDS: LASIX IV SCH (09:30)
[2019-01-05] MEDS: ZOLOFT PO SCH ×2 (09:30→20:47)
[2019-01-05] MEDS: ALDACTONE PO SCH (09:30)
--- NOTE | 2019-01-05 12:47 | Diag Imaging Result Doc PS360 ---
EXAM: CHEST-1 VIEW INDICATION: SOB TECHNIQUE: One view COMPARISON: 01/01/2019 FINDINGS: Inspiration is somewhat suboptimal. There is mild increased opacity at the lung bases that is very similar to the previous study suggesting likely mild edema. There is probably also a component of atelectasis. No new consolidation is identified. Cardiac silhouette is stable. IMPRESSION: Essentially stable chest. Electronically signed by Lenard Noguera 01/05/2019 12:44 PM
--- NOTE | 2019-01-05 14:21 | Diag Imaging Result Doc PS360 ---
EXAM: CT THORAX W/O CONTRAST INDICATION: pneumonia TECHNIQUE: This exam was performed using automated exposure control, adjustment of mA or kV according to patient size, and/or use of iterative reconstruction technique. COMPARISON: None. FINDINGS: There is a 6 mm noncalcified nodule in the right middle lobe. This may represent a noncalcified granuloma. Consider follow-up based on Fleischner Society criteria. There is mild subsegmental atelectasis at the lung bases. The lungs are clear, otherwise. No airspace consolidations are identified. There is no pleural fluid collection. There is no pneumothorax. There are shotty borderline and mildly prominent mediastinal lymph nodes that are nonspecific. There is no cardiomegaly. There is extensive coronary artery calcification. There is a tiny cyst density focus associated with the right kidney. The upper abdomen is grossly unremarkable, otherwise. IMPRESSION: 1.Minimal bibasilar subsegmental atelectasis. No airspace consolidations identified. 2.6 mm noncalcified nodule in the right middle lobe. Please see above discussion. 3.Borderline and mildly prominent nonspecific mediastinal lymph nodes. Electronically signed by Lenard Noguera 01/05/2019 2:19 PM
--- NOTE | 2019-01-05 14:28 | PROGRESS NOTE ---
DATE: 01/05/2019 SUBJECTIVE: Patient resting comfortably in bed. She is still using the BiPAP machine on and off. At this moment, she is on oxygen and the oxygen saturation has been stable. She does have bacteremia due to Staphylococcus epidermidis. Infectious disease department on board. I repeated a new blood work: Blood culture yesterday and so far has been negative. OBJECTIVE: Vital Signs: Temperature 97.7 degrees, pulse 60, respiratory rate 22, blood pressure 125/79, oxygen saturation 92 on 4 L of nasal cannula. HEENT: Head normocephalic. No trauma. PERRLA. Neck: Supple. No JVD. No masses. Central trachea. Chest: Decreased breath sounds globally with prolonged expiratory phase. No wheezing today some crepitus at the bases. Abdomen: Soft, obese, protuberant. Extremities: Trace lower extremity edema. No clubbing. No cyanosis. Neurological: The patient is alert. She is oriented x3. No focal deficits. LABORATORY: Sodium 130, potassium 4.2, chloride 94, bicarbonate 25, BUN 19, creatinine 1.4, glucose 211, calcium 9. ASSESSMENT AND PLAN: 1. Acute on chronic hypercarbic and hypoxemic respiratory failure. Continue with the same management. I think she is getting better. Continue with the BiPAP machine as needed, CPAP during the night. Pulmonary department on board. Oxygen supplementation. 2. Bacteremia due to Staphylococcus epidermidis. I have requested a new set of blood culture yesterday and it has been negative so far, infectious disease department has been modifying her medications. She has been placed on daptomycin. We will continue with Zyvox due to lower lung infiltrates. 3. Bilateral pneumonia at the bases. Continue with Zyvox. Infectious disease on board. She is feeling much better. 4. Chronic kidney disease, aware. This is her baseline. 5. Hypertension. Continue medications. 6. Hyperlipidemia, stable. Continue home medication. 7. Type 2 diabetes. The dose of Lantus has been increased, we will continue with same management for now. 8. Deep vein thrombosis prophylaxis with Lovenox. cc: Robles Rod MD
--- NOTE | 2019-01-05 14:29 | INFECTIOUS DISEASE CONSULT REP ---
DATE: 01/05/2019 CONCLUSION: The patient has a Staph epidermidis bacteremia. I think this was caused by her dog scratching her arm which allowed the Staph epidermidis, which is normal joselin on the skin, to enter into the bloodstream. The patient's x-ray shows possible bibasilar infiltrates which may be pneumonia. This could be caused by hematogenous involvement of the lungs with Staph epidermidis. RECOMMENDATIONS: I agree with treating the patient with Zyvox until we know for sure that the bibasilar infiltrates on chest x-ray are not due to pneumonia. I have also added daptomycin. Since daptomycin can interfere with Zoloft, I have discontinued Zoloft and the patient said that she could do without her Zoloft while we are treating her with daptomycin. I have ordered a noncontrasted CT scan of the chest and also a procalcitonin level to see if we can rule out the possibility that the patient has bibasilar infiltrates that could be due to pneumonia. DISCUSSION: The patient initially came in the hospital with dyspnea. She was not complaining of any fever or chills. She did not complain of any dysuria or cough and she was not bringing up any sputum. Her studies thus far show a CBC with white blood cell count of 10,160, hemoglobin 12.2, and platelet count 228,000. Blood gases show a pH of 7.33, a PO2 of 78, and a pCO2 of 53. Creatinine is 1.4. GFR is 38. Two separate sets of blood cultures are growing Staph epidermidis. Repeat blood cultures pending. Chest x-ray shows bibasilar infiltrates. PAST MEDICAL HISTORY/REVIEW OF SYSTEMS: Eyes and ears: Patient denies any problem hearing or seeing. Neck: No stiffness. Respiratory: See present illness. Cardiac: No chest pain or palpitations. GI: No nausea, vomiting, or diarrhea. : No dysuria or flank pain. Neurologic: No seizures. No loss of motor or sensory function. 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 She delivered both of her children by C- section. She has had a hysterectomy. PREVIOUS HOSPITALIZATIONS AND OPERATIONS: The patient has had 2 sections, a miscarriage, a hysterectomy and a tonsillectomy. MEDICAL DISEASES: Positive for stroke, chronic obstructive pulmonary disease, diabetes mellitus, congestive heart failure, hypertension, hypothyroidism, obstructive sleep apnea, coronary artery disease, hyperlipidemia, and obesity. INFECTIOUS DISEASE HISTORY: Positive for pneumonia and UTI. FAMILY HISTORY: Positive for coronary artery disease, diabetes mellitus, hypertension, myocardial infarction, and cancer. SOCIAL HISTORY: The patient is . She smokes cigarettes. She does not drink alcoholic beverages or abuse drugs. She has dogs as pets. ALLERGIES: The patient is allergic to ESCOBAR inhibitors, codeine, adhesive tape and Rocephin which in April 2008 when she was given it, it caused her to have hives. MEDICATIONS: Taken at home include amlodipine, clonazepam, Plavix, Welchol, Lasix, fexofenadine, gabapentin, glimepiride, glycopyrrolate/formoterol inhaler, hydrocodone, insulin, metformin, Lopressor, Singulair, NicoDerm patch, nitroglycerin, omeprazole, Ranexa, sertraline and Aldactone. PHYSICAL EXAMINATION: Vital Signs: Temperature is 97.7 degrees, pulse 60, respirations 22, blood pressure 125/79. Patient weighs 298 pounds. General: This is a morbidly obese, middle-aged female. She is in no acute distress. Head, eyes, ears, nose, and throat: She can hear my spoken words and see near objects. I did not see any white patches on her tongue. She talks in a very deep husky voice. Neck: No meningismus. Lungs: Distant breath sounds. I did not hear any rales. Cardiovascular: Heart tones were distant. Heart rate was irregular. On EKG, the patient was found to be in sinus rhythm with PACs. Abdomen: Soft without masses or tenderness. Neurologic: The patient is alert. She can move her extremities. There is no tremor. Her sensation is intact to touch. Her memory as regarding her medical history is intact. Thank you for the consult. cc: Bear Welch MD
[2019-01-05] MEDS: CUBICIN 800 MG in NS 100 ML IV SCH (15:00)
--- NOTE | 2019-01-05 15:32 | INFECTIOUS DISEASE CONSULT REP ---
DATE: 01/05/2019 ADDENDUM REPORT The patient had bibasilar infiltrate versus atelectasis on chest x-ray. I obtained a noncontrasted CT scan of the thorax, and it showed minimal bibasilar subsegmental atelectasis but no airspace consolidations notified. There was a 6 mm noncalcified nodule in the right middle lobe. Based on the CT findings, I am going to discontinue Zyvox because the patient does not have pneumonia. Also I cancelled an order for a procalcitonin level. cc: Bear Welch MD MTDD
[2019-01-05] MEDS: NICODERM PATCH TD PRN (15:51)
--- NOTE | 2019-01-05 16:04 | INFECTIOUS DISEASE CONSULT REP ---
DATE: 01/05/2019 ADDENDUM: As mentioned earlier, the patient's CT scan does not show pneumonia. Therefore, I have canceled getting a procalcitonin level and also I have restarted Zoloft 150 mg p.o. at bedtime. cc: Bear Welch MD MTDD
[2019-01-05] MEDS ORDERED: ZYVOX PO SCH (20:00)
[2019-01-05] MEDS: KLONOPIN PO PRN (20:48)
[2019-01-06] MEDS: HUMULIN R SUBQ SCH ×5 (00:06→22:25)
[2019-01-06] MEDS: DUONEB (A & A) INH SCH ×6 (03:46→22:41)
[2019-01-06] MEDS: PRILOSEC PO SCH (06:11)
[2019-01-06] MEDS: LOVENOX SUBQ SCH (06:12)
[2019-01-06 07:42] LABS: CALCIUM 9.5 mg/dL (8.8-10.2); CREATININE 1.2 mg/dL (0.5-0.9); POTASSIUM 4.2 mmol/L (3.5-5.1)
--- NOTE | 2019-01-06 07:53 | Diag Imaging Result Doc PS360 ---
EXAM: CHEST-1 VIEW INDICATION: SOB TECHNIQUE: One view COMPARISON: 01/05/2019 FINDINGS: Mild interstitial thickening with a basilar predominance likely representing mild edema is approximately stable. No new consolidation is identified. Cardiac silhouette is stable. IMPRESSION: Grossly stable chest. Electronically signed by Lenard Noguera 01/06/2019 7:50 AM
[2019-01-06] MEDS: SINGULAIR PO SCH (09:29)
[2019-01-06] MEDS: WELCHOL PO SCH ×2 (09:29→22:22)
[2019-01-06] MEDS: PLAVIX PO SCH (09:29)
[2019-01-06] MEDS: RANEXA PO SCH ×2 (09:29→22:23)
[2019-01-06] MEDS: ALDACTONE PO SCH (09:29)
[2019-01-06] MEDS: NORVASC PO SCH (09:29)
[2019-01-06] MEDS: LASIX IV SCH ×2 (09:29→11:59)
[2019-01-06] MEDS: ASPIRIN PO SCH (09:29)
[2019-01-06] MEDS: LOPRESSOR PO SCH ×2 (09:29→22:22)
[2019-01-06] MEDS: LANTUS INSULIN SUBQ SCH (09:35)
--- NOTE | 2019-01-06 10:06 | PROGRESS NOTE ---
DATE: 01/06/2019 SUBJECTIVE: The patient is resting comfortably in bed. She is still using the BiPAP machine on and off. The new blood culture is negative. The previous one showed Staphylococcus epidermidis. Infectious Disease department on board. OBJECTIVE: Vital Signs: Temperature 98.4 degrees, pulse 85, respiratory rate 12, blood pressure 110/58, oxygen saturation 95% on 4.5 L nasal cannula. HEENT: Head normocephalic, no trauma. PERRLA. Neck: Supple. No JVD. No masses. Central trachea. Chest: Decreased breath sounds globally with prolonged expiratory phase. No wheezing today. Some crepitus at the bases. Abdomen: Soft, obese, protuberant. Extremities: Trace lower extremity edema. No clubbing. No cyanosis. Neurological: Alert and oriented x3. No focal deficits. LABORATORY: Sodium 137, potassium 4.2, chloride 97, bicarbonate 27, BUN 20, creatinine 1.2, glucose 207, calcium 9.5. ASSESSMENT AND PLAN: 1. Acute on chronic hypercarbic hypoxemic respiratory failure. Continue with same management. This is better. 2. Bacteremia due to Staphylococcus epidermidis. New blood culture from 2 days ago is negative. Infectious Disease department on board. She is getting daptomycin. I will wait for Infectious Disease department recommendations. Probably she will need a PICC line to be able to go home. 3. Bilateral pneumonia at the bases, resolved. 4. Chronic kidney disease. Aware. This is her baseline. 5. Hypertension. Continue home medication. 6. Hyperlipidemia, stable. 7. Type 2 diabetes. The glucose level is around 200. For now, we will continue with same management. 8. Deep vein thrombosis prophylaxis with Lovenox. cc: Robles Rod MD
[2019-01-06] MEDS: CUBICIN 800 MG in NS 100 ML IV SCH (11:50)
--- NOTE | 2019-01-06 13:12 | INFECTIOUS DISEASE PROGRESS NO ---
DATE: 01/06/2019 PRESENT ILLNESS: The patient has a Staphylococcus epidermidis bacteremia, which I think originated from her dog scratching her arms. MEDICATIONS: The patient is receiving daptomycin. PHYSICAL EXAMINATION: Vital Signs: Temperature is 98.4 degrees, pulse 85, respirations 12, blood pressure 110/58. General: This is an obese, middle-aged female. She is in no acute distress. Head, Eyes, Ears, nose, and Throat: She can hear my spoken words and see near objects. She does not have any white coating of her tongue. She speaks in a very deep, husky voice. Neck: No pain with movement. Lungs: Clear to auscultation. Cardiovascular: Regular heart rate. Abdomen: Soft and nontender. Extremities: The patient's wounds that she had on her arm from her dog scratching her now are not erythematous. They are not draining. There are some small eschars remaining. Neurologic: The patient is alert. She can ambulate without difficulty. There is no tremor. LABORATORY AND X-RAY STUDIES: The patient's blood cultures were negative at the end of December. Her creatinine is 1.2. GFR is 46. There is no CBC or CK for today. CT scan of the chest shows no evidence of pneumonia. ASSESSMENT AND PLAN: The patient has Staphylococcal bacteremia. The plan is to treat with daptomycin for 2 weeks. I have put in a consult to have a peripherally inserted central catheter placed tomorrow, and also I put in a consult for social service tomorrow, in the consult request setting up the patient's home IV antibiotics. I have put an order for [facility] to supply the home IV antibiotics. I have ordered for a peripherally inserted central catheter to be placed and also a prothrombin time to be done on the day the patient has her peripherally inserted central catheter placed. I plan to have the patient come to my office in 2 weeks, at which time hopefully we will be able to stop the antibiotics and remove the peripherally inserted central catheter. COMORBIDITIES: The patient has diabetes. She also has chronic obstructive pulmonary disease and congestive heart failure and coronary artery disease. cc: Bear Welch MD
--- NOTE | 2019-01-06 15:18 | PULMONOLOGY PROGRESS NOTE ---
DATE: 01/06/2019 SUBJECTIVE: The patient is awake, alert, and conversant. She reports she feels better. She is without specific complaints today. OBJECTIVE: Vital Signs: Blood pressure 110/58, heart rate 56, respiratory rate 19, oxygen saturation 99% on nasal cannula. HEENT: Pupils are equal and reactive. Oropharynx appears clear. Neck: Supple. Chest: Reveals prolonged expiratory phase. Cardiac: S1, S2. Abdomen: Obese and soft. Extremities: Without edema. LABORATORIES: White blood count 10.16, hemoglobin 12.2, platelet count 228,000. Sodium 137, potassium 4.2, chloride 97, bicarbonate 27, BUN 20, creatinine 1.2. IMPRESSION: 1. A 58-year-old with chronic obstructive pulmonary disease. 2. Acute on chronic hypoxemic and hypercapnic respiratory failure. 3. Ongoing tobacco use. 4. Staphylococcus epidermidis bacteremia being treated by Dr. Bear Welch. 5. Morbid obesity with body mass index greater than 50. 6. Nicotine addiction. RECOMMENDATION: 1. Continue current treatment for COPD. 2. Continue antibiotics per Infectious Disease. 3. Smoking cessation was discussed for her nicotine addiction. 4. Encourage weight loss. cc: Nilo Armas MD
[2019-01-06] MEDS: ZOLOFT PO SCH (22:22)
[2019-01-06] MEDS: KLONOPIN PO PRN (22:22)
[2019-01-07] MEDS: DUONEB (A & A) INH SCH ×2 (03:31→08:26)
[2019-01-07] MEDS: LOVENOX SUBQ SCH (06:11)
[2019-01-07] MEDS: PRILOSEC PO SCH (06:11)
[2019-01-07] MEDS: HUMULIN R SUBQ SCH ×2 (06:12→12:40)
[2019-01-07 06:45] LABS: BASO# 0.04 X1000 (0.0-0.2); BASO% 0.4 % (0.0-0.8); EOS# 0.28 X1000 (0.0-0.7); HEMATOCRIT 39.8 % (37.0-47.0); HEMOGLOBIN 12.6 g/dL (12.0-16.0); LYMPH# 1.51 X1000 (1.2-3.4); LYMPH% 16.3 % (20.5-51.1); MCH 29.1 PG (27-31); MCHC 31.7 g/dL (33-37); MCV 91.9 FL (81-99); MONO# 0.59 X1000 (0.11-0.59); MONO% 6.4 % (1.7-9.3); NEUT# 6.87 X1000 (1.4-6.5); NEUT% 73.9 % (42.2-75.2); PLT 217 X1000 (130-400); RBC 4.33 XMIL (4.2-5.4); RDW 15.6 % (11.5-14.5); WBC 9.29 X1000 (4.8-10.8)
[2019-01-07 06:55] LABS: INR 1.05; PROTIME 13.9 Seconds (11.0-16.0)
[2019-01-07 07:11] LABS: CALCIUM 9.3 mg/dL (8.8-10.2); CREATININE 1.3 mg/dL (0.5-0.9); POTASSIUM 4.3 mmol/L (3.5-5.1)
[2019-01-07] MEDS ORDERED: NS 250 ML ONE (08:58)
[2019-01-07] MEDS: KLONOPIN PO PRN (09:09)
[2019-01-07] MEDS: LANTUS INSULIN SUBQ SCH (10:32)
[2019-01-07] MEDS: WELCHOL PO SCH (10:34)
[2019-01-07] MEDS: LASIX IV SCH (10:34)
[2019-01-07] MEDS: LOPRESSOR PO SCH (10:34)
[2019-01-07] MEDS: ALDACTONE PO SCH (10:34)
[2019-01-07] MEDS: ASPIRIN PO SCH (10:34)
[2019-01-07] MEDS: RANEXA PO SCH (10:34)
[2019-01-07] MEDS: NORVASC PO SCH (10:34)
[2019-01-07] MEDS: SINGULAIR PO SCH (10:34)
[2019-01-07] MEDS: PLAVIX PO SCH (10:34)
[2019-01-07] MEDS: CUBICIN 800 MG in NS 100 ML IV SCH (10:35)
[2019-01-07] MEDS ORDERED: PNEUMOVAX 23 IM ONE (12:15)
[2019-01-07 12:25] VITALS: BP 137/86
--- NOTE | 2019-01-07 12:50 | INFECTIOUS DISEASE PROGRESS NO ---
DATE: 01/07/2019 PRESENT ILLNESS: The patient has Staph epidermidis bacteremia which I think originated from her dog scratching her arms. MEDICATIONS: The patient is receiving daptomycin. PHYSICAL EXAMINATION: Vital Signs: Temperature is 97.8 degrees, pulse 64, respirations 21, blood pressure 121/74. General: This is an obese, middle-aged female. She is in no acute distress. Head/eyes/ears/nose/throat: She can hear my spoken words and see near objects. The patient talks in a very deep, husky voice. Neck: No pain with movement. Lungs: Clear to auscultation. Cardiovascular: Regular heart rate. Abdomen: Soft and nontender. Extremities: The patient's scratches are not erythematous or draining and there are some small eschars covering them. Neurologic: Patient is alert. She ambulates without difficulty. She does not have a tremor. LAB AND X-RAYS: CK is 34. Creatinine is 1.3. GFR is 42. CBC shows a white count of 9290, hemoglobin 12.6, and platelet count 217,000. ASSESSMENT AND PLAN: Patient has Staphylococcal epidermidis bacteremia. The patient is going home today on daptomycin intravenously for 2 weeks. I plan to have the patient come back to my office in 2 weeks, at which time hopefully we will be able to stop the antibiotics and remove the patient's PICC. COMORBIDITIES: The patient is a diabetic. She also smokes cigarettes. She has chronic obstructive pulmonary disease, congestive heart failure, and coronary artery disease. cc: Bear Welch MD
--- NOTE | 2019-01-07 15:03 | DISCHARGE SUMMARY ---
ADMISSION DATE: 01/02/2019 DISCHARGE DATE: 01/07/2019 DIAGNOSES: 1. Acute on chronic hypercarbic and hypoxemic respiratory failure in a patient who uses home BiPAP. 2. History of acute on chronic congestive heart failure, predominantly right- sided failure related to cor pulmonale and pulmonary hypertension. 3. Chronic kidney disease. 4. Hypertension. 5. Hyperlipidemia. 6. Bilateral lower lobe pneumonia. 7. Diabetes mellitus type 2. 8. Staphylococcus epidermidis bacteremia which is very likely originating from a dog scratching her arms. 9. Coronary artery disease. CONSULTANTS: 1. Dr. Bear Welch, Infectious Disease. 2. Dr. Abdelrahman Recinos. 3. Dr. Nilo Armas. DIAGNOSTICS: 1. 01/01/2019 chest x-ray revealed pulmonary edema with basilar infiltrate. 2. 01/05/2019 chest x-ray revealed stable chest. 3. 01/05/2019, CT of the chest revealed minimal bibasilar subsegmental atelectasis with no airspace consolidations identified. 6 mm noncalcified nodule in the right middle lobe. Borderline mildly prominent nonspecific mediastinal lymph nodes. 4. Nicotine addiction. 5. Morbid obesity. 6. Microbiology 01/01/2019 blood cultures x2 revealed Staph coccus epidermidis. 7. Sputum culture revealed normal joselin. 8. 01/04/2019 blood cultures x2 revealed no growth after 48 hours. 9. 01/05/2019 revealed normal joselin. PRIMARY CARE PHYSICIAN: Dr. Galvan. HOSPITAL COURSE: Ms. Huynh presented to the emergency room complaining of shortness of breath. She was found to be in acute hypercarbic hypoxemic respiratory failure having O2 saturation with continued BiPAP with aggressive pulmonary toilet, incentive spirometer, and DuoNebs. Pulmonology was consulted to follow along through the hospitalization. She has improved and today she is at her baseline respiratory status using BiPAP off and on as at home. She was found to have Staphylococcus epidermidis bacteremia. Dr. Bear Welch, Infectious Disease, was consulted. She was placed on daptomycin. PICC line was placed. Antibiotic and PICC line will be managed outpatient per Dr Welch. Blood sugars were initially managed with her home insulin along with sliding scale. She will be discharged on her home regimen. Smoking cessation was discussed with the patient per the hospitalist as well as Dr. Armas in pulmonology. DISCHARGE VITAL SIGNS: Blood pressure 121/74, heart rate of 52, respirations 20, temperature 97.8 degrees oral with O2 saturation that are currently 96 to 98 percent on BiPAP with home settings. Cardiovascular regular rate and rhythm. S1 and S2 are appreciated. She has generalized bilateral lower extremity edema. Calves nontender bilateral with peripheral pulses palpable x4 extremities. Pulmonary breath sounds are diminished throughout with prolonged expiratory phase. Chest rises and falls symmetric with respiration. Gastrointestinal, abdomen is obese, soft, nondistended, with bowel sounds in all 4 quadrants. Neurologic, she is alert oriented x3. DISCHARGE MEDICATIONS: 1. Zoloft 150 mg p.o. daily. 2. NicoDerm patch 21 mg p.o. at bedtime. 3. Metformin 500 mg p.o. b.i.d. 4. [place] 7.5 one q. 6 hours p.r.n. 5. Bevespi Aerosphere inhaler 1 puff daily. 6. Glimepiride 2 mg p.o. daily. 7. Gabapentin 300 mg capsules 2 capsules p.o. daily. 8. Lasix 40 mg p.o. daily. 9. Fexofenadine 180 mg p.o. daily. 10. Aldactone 25 mg p.o. daily. 11. Ranexa 500 mg p.o. b.i.d. 12. Omeprazole 40 mg p.o. daily. 13. Singulair 10 mg p.o. daily. 14. Metoprolol 100 mg p.o. b.i.d. 15. Lantus insulin 20 units subcutaneous daily. 16. Plavix 75 mg p.o. daily. 17. Klonopin 1 mg p.o. b.i.d. 18. Aspirin 325 p.o. daily. 19. Norvasc 5 p.o. daily. FOLLOWUP: 1. Dr. Bear Welch in 2 weeks. She needs to call to schedule appointment. 2. Dr. Pavon. She will need to call to schedule an appointment. At this time they can discuss the 6 mm noncalcified nodule in the right middle lobe and Dr. Galvan can facilitate further workup. 3. Her potline monitor, she needs to call to schedule an appointment to be seen in the next 1 to 2 weeks. She has been instructed to call to be seen sooner or return to the ER for any syncope, dizziness, chest pain, palpitations, increasing shortness of breath, any temperature greater than 101, any nausea, vomiting, diarrhea, constipation, black or bloody vomitus or stools, any hematuria, dysuria, frequency, urgency, or for any questions or concerns that she may have. She is being discharged home in stable condition with family members. TIME SPENT: This is a greater than 30 minute discharge. Dictated by IRA Beard for Robles Rod MD cc: IRA Beard MD Akram Haggag, MD MTDD
== END 2019-01-07 13:18 | disposition home health service (06) | DRG 291 ==
LOC: ED 20:32 → 3N 01-02 01:46 → SUATTDRO 01-02 01:46
PROVIDERS: ATTEND Internal Medicine

== ENCOUNTER 2019-08-27 09:33 | Inpatient (IN) ==
--- NOTE | 2019-08-27 09:48 | PROVIDER DOCUMENTATION ---
HPI-General Adult - General Chief Complaint: Syncope Stated Complaint: syncope Time Seen by Provider: 08/27/19 09:45 Source: patient Allergies/Adverse Reactions: Patient Allergies Allergy/AdvReac Type Severity Reaction Status Date / Time ESCOBAR Inhibitors Allergy ANAPHYLAXIS Verified 08/27/19 09:52 codeine [Codeine] AdvReac Intermediate NAUSEA/VOMI Verified 08/27/19 09:52 TING adhesive tape AdvReac Unknown Verified 08/27/19 09:52 ceftriaxone [From Rocephin] AdvReac RASH Verified 08/27/19 09:52 nylon sutures AdvReac RASH Uncoded 08/27/19 09:52 Home Medications: Home Medication List Medication Instructions Recorded Confirmed Last Taken Type Clopidogrel Bisulfate [Plavix] 75 mg PO DAILY 03/05/12 08/27/19 10/10/17 05:00 History Omeprazole 40 mg PO DAILY@0700 03/05/12 08/27/19 10/10/17 05:00 History Spironolactone [Aldactone] 25 mg PO DAILY 03/05/12 08/27/19 10/10/17 05:00 History Clonazepam 1 mg PO BID PRN PRN 04/23/14 08/27/19 10/08/17 21:00 History Ranolazine E.r. [Ranexa] 500 mg PO BID 04/23/14 08/27/19 10/10/17 05:00 History Glimepiride 2 mg PO DAILY 07/23/16 08/27/19 10/09/17 09:00 History Colesevelam HCl [Welchol] 625 mg PO BID 10/09/17 08/27/19 10/10/17 05:00 History Fexofenadine HCl 180 mg PO PRN 10/09/17 08/27/19 10/09/17 21:00 History Gabapentin 2 cap PO DAILY 10/09/17 08/27/19 10/10/17 05:00 History Insulin Lispro [Humalog Kwikpen 0 unit SQ DIRECTED 10/09/17 08/27/19 10/08/17 History U-100] Metoprolol [Lopressor] 100 mg PO BID 10/09/17 08/27/19 10/10/17 05:00 History Nitroglycerin 0.4 mg SL PRN PRN 10/09/17 08/27/1918 History Amlodipine [Norvasc] 5 mg PO DAILY #30 tablet 10/10/17 08/27/19 Unknown Rx Aspirin 325 mg PO DAILY 09/12/18 08/27/19 Unknown History Glycopyrrolate/Formoterol Fum 1 puff INH DAILY 09/12/18 08/27/19 Unknown History [Bevespi Aerosphere Inhaler] Hydrocodone/APAP 7.5 mg/325 mg 1 ea PO Q6H PRN PRN 09/12/18 08/27/19 Unknown History [[place]-7.5] Montelukast [Singulair] 1 tab PO DAILY 09/12/18 08/27/19 Unknown History Sertraline HCl 150 mg PO DAILY 09/12/18 08/27/19 Unknown History Furosemide [Lasix] 40 mg PO DAILY #0 09/18/18 08/27/19 10/09/17 09:00 Rx Insulin Glargine [Lantus Insulin] 20 unit SUBQ DAILY unit 09/18/18 08/27/19 Unknown Rx Nicotine Patch [Nicoderm Patch] 21 mg TD HS patch.td24 09/18/18 08/27/19 Unkno wn Rx Metformin HCl 500 mg PO BID AC 01/02/19 08/27/19 Unknown History - History of Present Illness -Gen Adult Nature of Presenting Problems: Patient is a 59 year old morbidly obese white female with history of CHF, severe COPD requiring home oxygen, anxiety disorder,diabetes, and atrial fibrillation who presents by EMS from her home in [place] for evaluation of syncopal episode with head injury and worsening SOB and orthopnea since yesterday. EMS report blood sugar over 400. Patient denies chest pain or new sob. Review of previous visits reveal BNP of 278, now BNP is over 4000. Followed by Dr Tomasz Soliman, [employer], and Dr. Wolf in [place]. Review of Systems - Adult - REVIEW OF SYSTEMS - ADULT Constitutional: denies: chills, fever Eyes: denies: discharge, blurred vision Ears, Nose, Mouth & Throat: denies: throat pain, throat swelling Cardiovascular: reports: orthopnea. denies: chest pain Respiratory: reports: see HPI, dyspnea on exertion, shortness of breath Gastrointestinal: denies: abdominal pain, diarrhea, nausea, vomiting Genitourinary: denies: dysuria Musculoskeletal: reports: no symptoms reported Integumentary: reports: no symptoms reported Neurological: reports: no symptoms reported Psychiatric: reports: anxiety Hematologic/Lymphatic: reports: see HPI Allergic/Immunologic: reports: no symptoms reported All Other Systems: Reviewed and Negative Past History - Adult - PAST MEDICAL HISTORY-ADULT Review of Records: reports: Old Records Reviewed, Nursing Assessment Review, Medications Reviewed, Social history reviewed & non-contributory. Major Childhood Illnesses: reports: denies history Cardiovascular: reports: cardiac disease (cardiac disorder), HTN, hyperlipidemia Respiratory: reports: bronchitis (chronic), COPD, pneumonia, sleep apnea Gastrointestinal: reports: GERD Obstetrical/Gynecological: reports: denies history Genitourinary: reports: denies history Musculoskeletal: reports: other (bone disease) Neurological: reports: denies history Endocrine/Immune: reports: Diabetes Other Conditions: reports: denies history (vision issues from Diabetes), eye problems/injury - PRIOR SURGERIES/PROCEDURES Surgical/Procedure History: reports: hysterectomy, , other (T & A) - IMMUNIZATION STATUS Childhood Immunizations: NUTD Flu Vaccine: NUTD - FAMILY HISTORY Family History: diabetes Physical Exam-General - PHYSICAL EXAM-ADULT Initial Vital Signs Reviewed: Yes - CONSTITUTIONAL General Appearance: alert, obese, other (GCS=15) - EYES Eyes: PERRL/EOMI - HEAD, EARS, NOSE, MOUTH & THROAT HENMT: moist mucous membranes, pharynx normal, other (abrasion over forehead) - NECK Neck: supple - RESPIRATORY Respiratory: no pleuratic chest pain, no respiratory distress, no accessory muscle use, decreased breath sounds, crackles (basilar rales) - CARDIOVASCULAR Cardiovascular: regular rate, rhythm - GASTROINTESTINAL (ABDOMEN) Abdominal Exam: non tender, soft, other (obese) - MUSCULOSKELETAL Back Exam: normal inspection, no CVA tenderness Extremity: normal range of motion, non-tender - SKIN Integumentary: normal color, normal turgor, warm/dry - NEUROLOGIC Neurologic: grossly normal, no motor/sensory deficits - PSYCHIATRIC Psych/Mental Status: oriented x 3, anxious Progress - PLAN OF CARE/RESULTS Result Diagrams: 08/27/19 10:02 08/27/19 10:02 - REASSESSMENT Reassessment #1 Time Reassessed: 10:45 Status: unchanged Reassessment #2 Time Reassessed: 11:30 Status: unchanged Reassessment Comment: informed patient of results, ordered Lasix for CHF - EKG 1 Time of EKG reading by physician:: 09:50 EKG Read and Signed by:: Kenny Buckner Rate: 73 Rhythm: NSR [place]: normal ST Wave: non-specific ST changes Comments: prolonged QT - XRAY 1 XRAY Study: Chest XRAY Interpretation: pulmonary edema - CT/MRI 1 CT Study: Cervical Spine, Head CT Results: NAD - CONSULTS/PCP/HOSPITALIST Notification #1 *Consult/PCP/Hospitalist*: Priscilla for hospitalist group Time Discussed: 11:40 Consult Disposition: Admit Departure - Departure Date of Disposition Decision: 08/27/19 Time of Disposition Decision: 11:47 DIAGNOSIS: Hypoxemia Episode of syncope Qualifiers: Syncope type: unspecified Qualified Code(s): R55 - Syncope and collapse Uncontrolled diabetes mellitus Qualifiers: Diabetes mellitus type: type 2 Glycemic state: with hyperglycemia Qualified Code(s): E11.65 - Type 2 diabetes mellitus with hyperglycemia COPD (chronic obstructive pulmonary disease) Qualifiers: COPD type: unspecified COPD Qualified Code(s): J44.9 - Chronic obstructive pulmonary disease, unspecified CHF (congestive heart failure) Qualifiers: Heart failure type: unspecified Heart failure chronicity: unspecified Qualified Code(s): I50.9 - Heart failure, unspecified Disposition: ADMITTED INPATIENT 09 Certified Medical Emergency: Emergent Condition: Stable Referrals and Follow-Ups: None,PCP [Primary Care Provider] - - Critical Care Note This patient required my direct & personal management of CC.: No Attestation - Physician/ JEFF Attestation Patient care was provided by Advanced Practice Provider:: No The physician spent face to face time with patient:: Yes Advanced Practice Provider documentation review:: Supervising physician onsite and consulted in the evaluation and care of this patient. The physician did have a face to face encounter with the patient.
[2019-08-27 10:12] LABS: BASO# 0.04 X1000 (0.0-0.2); BASO% 0.3 % (0.0-0.8); EOS# 0.19 X1000 (0.0-0.7); EOS% 1.7 % (0.0-10.0); HEMATOCRIT 47.8 % (37.0-47.0); IMM GRAN# 0.02 X1000 (0.0-0.04); IMM GRAN% 0.2 % (0.0-0.5); LYMPH# 1.88 X1000 (1.2-3.4); LYMPH% 16.3 % (20.5-51.1); MCH 27.2 PG (27-31); MCHC 31.4 g/dL (33-37); MCV 86.8 FL (81-99); MONO# 0.57 X1000 (0.11-0.59); NEUT# 8.81 X1000 (1.4-6.5); NEUT% 76.5 % (42.2-75.2); PLT 307 X1000 (130-400); RBC 5.51 XMIL (4.2-5.4); RDW 17.5 % (11.5-14.5); WBC 11.51 X1000 (4.8-10.8)
--- NOTE | 2019-08-27 10:23 | EKG Report ---
Test Performed on : 08/27/2019 09:49:31 AM Test Reason : pain Blood Pressure : / mmHG Vent. Rate : 073 BPM Atrial Rate : 073 BPM P-R Int : 184 ms QRS Dur : 118 ms QT Int : 474 ms P-R-T Axes : 084 101 -19 degrees QTc Int : 522 ms Sinus rhythm. with premature supraventricular complexes. Possible Right ventricular hypertrophy ST & T wave abnormality, consider anterolateral ischemia Prolonged QT Abnormal ECG When compared with ECG of 02-JAN-2019 07:20, premature supraventricular complexes. are now present T wave inversion now evident in Inferior leads Unconfirmed Result
[2019-08-27 10:45] LABS: INR 1.11; PROTIME 14.5 Seconds (11.0-16.0)
[2019-08-27 10:46] LABS: PTT 25.3 Seconds (22.3-41.8)
[2019-08-27 10:50] LABS: ALB/GLOB RATIO 1.6; ALBUMIN 3.8 g/dL (3.5-5.0); CALCIUM 8.9 mg/dL (8.8-10.2); CREATININE 1.5 mg/dL (0.5-0.9); POTASSIUM 3.3 mmol/L (3.5-5.1); TOTAL BILIRUBIN 0.44 mg/dL (0.20-1.00); TOTAL PROTEIN 6.2 g/dL (6.3-8.3)
--- NOTE | 2019-08-27 10:54 | Diag Imaging Result Doc PS360 ---
EXAM: CT HEAD/C-SPINE W/O CONTRAST 08/27/2019 HISTORY: head injury, LOC TECHNIQUE: This exam was performed using automated exposure control, adjustment of mA or kV according to patient size, and/or use of iterative reconstruction technique. COMMENT: There are calcifications in the vertebral and internal carotid arteries bilaterally. There is an area of hypodensity present in the inferior insula/basal ganglia on the left which has not changed since 03/05/2012. There is ill-defined patchy areas of lucency in the subcortical white matter of both hemispheres. There is no evidence of mass effect bleed or abnormal extra-axial fluid collection. There is some mucosal thickening in both maxillary sinuses. The calvarium is intact and stable in appearance. Cervical spine: There are no previous studies. There is considerable beam hardening artifact in the lower cervical spine due to overlying soft tissues. There are no definite acute bony abnormalities. There is some osteophyte formation at C4-5 C5-6 and C6-7 levels. IMPRESSION: No evidence of acute intracranial disease. Chronic microvascular white matter changes. Degenerative disc disease. No evidence of acute bony abnormality in the cervical spine. Electronically signed by Yunior Garcia 08/27/2019 10:52 AM
[2019-08-27] MEDS ORDERED: HUMULIN R IV ONE (10:57)
--- NOTE | 2019-08-27 11:12 | Diag Imaging Result Doc PS360 ---
EXAM: CHEST-PORTABLE 08/27/2019 HISTORY: sob TECHNIQUE: AP portable at 1057 COMMENT: There is mild cardiomegaly and increased pulmonary vascularity. There is minimal interstitial pulmonary edema. Compared to 01/06/2019 this has not changed appreciably. IMPRESSION: Minimal pulmonary edema. Electronically signed by Yunior Garcia 08/27/2019 11:09 AM
[2019-08-27] MEDS ORDERED: LASIX IV ONE (11:34)
[2019-08-27 12:07] LABS: ALLEN TEST YES; BE 4.2 mmoll (-3.0-3.0); BLOOD TYPE ARTERIAL; HCO3-(ACT) 27.8 mmoll (20.0-26.0); METHB 0.9 % (0.0-1.5); O2(CT) 18.9 mL/dL (15.0-23.0); PO2(98.6) 61 mmHg (60-100); SAMPLE BLOOD; SAO2 93.1 % (95.0-100.0); THB 15.6 g/dL (11.5-17.4); pH(98.6) 7.38 (7.35-7.45)
[2019-08-27 12:11] LABS: MODALITY CANNULA; O2HB 86.2 % (95.0-99.0); PCO2(98.6) 52 mmHg (35-45)
[2019-08-27] MEDS ORDERED: DUONEB (A & A) INH ONE (12:50)
[2019-08-27] MEDS ORDERED: NORCO-7.5 PO PRN (13:24)
[2019-08-27] MEDS ORDERED: ZOFRAN IV PRN (13:24)
[2019-08-27] MEDS ORDERED: TYLENOL PO PRN (13:24)
[2019-08-27] MEDS ORDERED: NITROGLYCERIN SL PRN (13:24)
--- NOTE | 2019-08-27 14:49 | HISTORY AND PHYSICAL ---
PRIMARY CARE PROVIDER: Dr. Wolf. STRUCTURAL SHOP HELPER: Dr. Soliman. UNIT CONTROL CLERK: She could not remember her veneer measurer's name. CHIEF COMPLAINT: Shortness of breath with increasing fatigue. HISTORY OF PRESENT ILLNESS: Ms Albreta Huynh is a 59-year-old female with a medical history of morbid obesity, primarily right-sided heart failure with pulmonary hypertension, COPD, and diabetes who came in after a syncopal spell. She states she has essentially been having symptoms on and off since April of shortness of breath. She even felt some fluttering of her heart back in May and spells of dizziness and lightheadedness, but not passing out. She states that her shortness of breath has worsened over the last 2 to 3 days. The only thing that really makes it feel better is wearing her CPAP that she usually wears at night. She is on continuous 4 and 5 L of oxygen at home. Her fatigue is worsened. She states that yesterday she had gotten up to go to the bathroom, she coughed twice and passed out, hitting the back of her head. She did not seek any medical attention at that time and then today, the same thing, she had gotten up to go the bathroom, she actually already sat down on the toilet, started coughing and passed out, fell forward and had a contusion and abrasion on the right part of her frontal forehead. She had a head CT which was negative for any acute findings. She does have a significantly elevated proBNP. She has got pulmonary edema on her chest x-ray. Her ABGs, she is hypoxic and retaining CO2. However, her pH is normal. She was also found to be significantly hyperglycemic and she states that she just recently realized she has been taking insulin that is and that she has been running anywhere from 500s to 600s on her blood glucose levels at home. She denies any fever, has a hard time sleeping flat. She has been coughing up productive white-michel thick phlegm, and so she is being admitted for hypoxemia, heart failure, COPD, syncope, and hyperglycemia. PAST MEDICAL HISTORY: 1. Last year 2018, she had a Staphylococcus epidermidis bacteremia, was followed by Dr. Welch for that at that time. 2. CVA, no residuals. 3. COPD on home oxygen at 4 to 5 L. 4. Diabetes mellitus type 2. 5. Obstructive sleep apnea, on CPAP. 6. Right-sided congestive heart failure with pulmonary artery hypertension. 7. Hypertension. 8. Coronary artery disease with RCA occlusive disease that is chronic. 9. CKD stage 3. 10. Hypothyroidism. 11. GERD. 12. Morbid obesity with a BMI of 49.9. 13. Insomnia. SURGICAL HISTORY: 1. section. 2. Hysterectomy. 3. Tonsillectomy. SOCIAL HISTORY: Lives with grandchildren and other family members. She continues to smoke a pack per day, started at the age of 11. Denies any alcohol or illicit drug use. FAMILY HISTORY: Mother and father both had coronary artery disease. Father had to have bypass surgery. They both had diabetes and her mother had congestive heart failure and chronic kidney disease. ALLERGIES: ESCOBAR inhibitors, codeine, ceftriaxone, nylon sutures, and adhesive tape. HOME MEDICATIONS: 1. Spironolactone 25 mg p.o. daily. 2. Aspirin 325 mg p.o. daily. 3. Bevespi inhaler daily. 4. Clonazepam 1 mg p.o. twice daily p.r.n. 5. Fexofenadine 180 mg p.o. p.r.n. 6. Neurontin 600 mg p.o. daily. 7. Glimepiride 2 mg p.o. daily. 8. Insulin lispro, looks like a sliding scale. 9. Lantus insulin 20 units subcutaneous daily. 10. Lopressor 100 mg p.o. twice daily. 11. Metformin 500 mg p.o. twice daily. 12. Nitroglycerin 0.4 mg sublingual p.r.n. 13. [place] 7.5 one tablet p.o. q.6 hours p.r.n. 14. Omeprazole 40 mg p.o. daily. 15. Plavix 75 mg p.o. daily. 16. Ranexa 500 mg p.o. twice daily. 17. Sertraline 150 mg p.o. daily. 18. Singulair 10 mg p.o. daily. 19. Welchol 625 mg p.o. twice daily. 20. Lasix 40 mg p.o. daily. 21. Nicotine patch 21 mg transdermal nightly. 22. Norvasc 5 mg p.o. daily. REVIEW OF SYSTEMS: Fourteen point review of systems are complete and all were negative except for those mentioned in above HPI. PHYSICAL EXAMINATION: VITAL SIGNS: Temperature 97.8 degrees, heart rate 67, respiratory rate 21, blood pressure 112/90, O2 saturation 92% on 4 L nasal cannula. She is 5 feet 5 inches tall, 300 pounds with a BMI of 49.9. GENERAL: Ms. Alberta Huynh is a 59-year-old female. She is in no acute distress. She is able to answer questions appropriately. HEENT: Atraumatic, normocephalic. Pupils equal, round, reactive to light. Extraocular movements intact. Mucous membranes are moist. NECK: Trachea midline. CARDIOVASCULAR: S1, S2. Regular rate and rhythm. No rubs, gallops, or murmurs. Difficult to assess for JVD due to body habitus. She had at least 2+ lower extremity pitting edema, +2 dorsalis and radial pulses. Negative for carotid bruits. PULMONARY: Mild expiratory wheezes noted throughout anterior and posteriorly. No accessory muscle use or work of breathing noted. She is tolerating 5 L of oxygen. GASTROINTESTINAL: Soft, nontender, nondistended. Positive bowel sounds x4. EXTREMITIES: Moves all extremities equally with decreased range of motion. NEUROLOGIC: Alert and oriented x3. Follows commands. Sensory is intact. SKIN: Warm, dry, intact except for right forehead abrasion. LABORATORY DATA: White blood cells 11,000, hemoglobin 15, hematocrit 47, platelet count 307,000. INR is 1.11, PTT is 25.3. ABGs on 4 L nasal cannula: pH 7.38, pCO2 52, PO2 61, bicarb 27, base excess 4.2, saturation is 86%. Lactate 1.9. Sodium 132, potassium 3.3, BUN 25, creatinine is 1.5, glucose was 384, recheck was 414, calcium 8.9. Total bilirubin 0.44, AST 11, ALT 9. CK 28, troponin 36. ProBNP 4690. Albumin 3.8. IMAGIN. Head CT. No acute findings. There are chronic microvascular changes. The stroke location is hypodensity in the inferior insula basal ganglia on the left, no change since February 2012. 2. Chest x-ray. Pulmonary edema. 3. EKG, normal sinus rhythm, rate 73, QTc is prolonged at 522. No ST elevations. Maybe some depression in the V leads. ASSESSMENT AND PLAN: 1. Acute on chronic hypoxemic, hypercarbic respiratory failure. We are probably going to put her on BiPAP. She was using her CPAP at home because it helped her breathe better, maybe to help open up her lungs a little more. Oxygen as needed. Nebulizers every 4 hours. We will hold off on steroids for now given that she is significantly hyperglycemic. 2. Chronic obstructive pulmonary disease exacerbation, on home oxygen. Up- titrating on that and we will consult Pulmonology for further recommendations and evaluation. We will also do Pulmicort, azithromycin for antibiotic coverage and Bevespi inhaler. 3. Acute on chronic right-sided heart failure with pulmonary artery hypertension. She got Lasix IV in the ER at a dose of 60 mg. We will go ahead and do 40 twice a day, decrease the beta- guera to Lopressor 50 twice a day from 100 twice a day. Continue spironolactone. We will recheck an echocardiogram. 4. Syncope. Workup will include echocardiogram and carotid ultrasound. Head CT was negative for any acute findings. 5. Uncontrolled diabetes mellitus type 2 with hyperglycemia. We will do moderate sliding scale insulin and do her scheduled Lantus, a diabetic diet. Check a hemoglobin A1c in the morning. Anion gap is only at 17. 6. Obstructive sleep apnea. We will do BiPAP for now. She wears CPAP at night. 7. Coronary artery disease with right coronary artery chronic occlusion. Continue with Plavix. Denies any chest pain. Cardiac enzymes are negative. No ST changes on the EKG. 8. Tobacco abuse. Cessation discussed. Nicotine patch ordered. 9. Gastroesophageal reflux disease. Continue with proton pump inhibitor. 10. Chronic kidney disease stage 3 is stable. 11. Morbid obesity. Diet and exercise discussed. 12. History of cerebrovascular accident. No new symptoms. 13. History of Staphylococcal epidermidis bacteremia and she had leukocytosis. This is most likely due to the pulmonary symptoms, but we will order blood cultures. 14. Deep venous thrombosis prophylaxis. SCDs. Patient seen and examined by me face to face, all the laboratory, vitals signs and images were reviewed, patient presented to the Emergency Department with complaining of shortness of breath and fatigue that has been getting worse for the past 3 days, she has a history of COPD but she is still smoking, apparently she has been using her CPAP machine as well for her JULIO CÉSAR, history of CHF, she will be placed on the bipap machine, diuretics, breathing treatment, pulmonary and Cardiology will be on board, she is wheezing bilaterally with prolonged expiratory phase and decreased breath sounds and crackles at the bases, I agree with the rest of the FELT CHECKER's assessment and plan, Robles Mckeon MD Dictated by IRA Fair for Robles Rod MD cc: IRA Fair MD [facility]
[2019-08-27] MEDS: DUONEB (A & A) INH SCH ×3 (16:07→22:30)
[2019-08-27] MEDS: ZITHROMAX 500 MG/NS 500 MG/250 ML IVPB IV SCH (16:47)
[2019-08-27] MEDS: GLUCOPHAGE PO SCH (16:47)
[2019-08-27] MEDS: HUMULIN R SUBQ SCH ×2 (16:47→21:52)
[2019-08-27] MEDS: PULMICORT INH SCH (19:39)
--- NOTE | 2019-08-27 20:34 | Carotid Study ---
DATE: 08/27/2019 REFERRING PHYSICIANS: Jaspreet. READING PHYSICIAN: Bruce. LICENSED MARRIAGE AND FAMILY THERAPIST: Vee. INDICATION: Syncope. FINDINGS: There are mild atherosclerotic changes in both carotid systems without corresponding elevated velocities or turbulent flow. There is antegrade vertebral flow bilaterally. The percent stenosis is 0 to 39 percent bilaterally. In addition, the thyroid appears to be quite heterogeneous and almost spongiform in appearance. This should be handled clinically and consider a formal thyroid ultrasound. cc: MD Earlene Rodrigues CRNP
[2019-08-27] MEDS: NICODERM PATCH TD SCH (21:49)
[2019-08-27] MEDS: WELCHOL PO SCH (21:51)
[2019-08-27] MEDS: RANEXA PO SCH (21:51)
[2019-08-27] MEDS: LASIX IV SCH (21:51)
[2019-08-27] MEDS: LOPRESSOR PO SCH (21:51)
[2019-08-27] MEDS: KLONOPIN PO PRN (21:51)
--- NOTE | 2019-08-27 23:59 | ECHO REPORT ---
ORDER DATE: 08/27/2019 MEASUREMENTS: Septal thickness 1.0, left ventricular internal diameter in diastole 4.8, posterior wall thickness 1.0, left ventricular internal diameter in systole 3.2, aortic root 2.8, left atrium 3.6. SUMMARY: 1. Technically difficult study due to limited acoustic window quality. Intravenous echo contrast agent, Optison, was utilized to enhance endocardial definition. 2. Aortic valve is trileaflet and opens normally on 2-dimensional images. Peak gradient across aortic valve is less than 10 mmHg. Mitral, tricuspid, and pulmonic valves are without evidence of structural abnormality with mild to moderate tricuspid regurgitation and mild pulmonic insufficiency. The estimated systolic PA pressure by Doppler is 55 to 60 mmHg, suggesting moderate pulmonary hypertension. Aortic root is normal in size. 3. Normal left ventricular dimensions demonstrated. Estimated left ejection fraction appears to be at least 60%. There is septal flattening during last diastole and systole suggesting right ventricular pressure/volume overload. Doppler suggests grade 1 left ventricular diastolic function. Left atrium is upper normal in size. The right atrium is moderately enlarged. The right ventricle is moderately enlarged with moderately depressed right ventricular systolic function. 4. No pericardial effusion. 5. Appearance of inferior vena cava suggests elevated central venous pressure. CONCLUSIONS: 1. Technically difficult study. Intravenous echo contrast agent, Optison, utilized. 2. Mild to moderate tricuspid regurgitation with moderate pulmonary hypertension by Doppler. 3. Normal left ventricular systolic function. 4. Moderately enlarged right atrium and right ventricle with moderately depressed right ventricular systolic function. 5. Diastolic and systolic septal flattening suggesting right ventricular pressure/volume overload. 6. Elevated central venous pressure suggested. cc: MD Earlene Larios CRNP
--- NOTE | 2019-08-28 01:45 | PULMONOLOGY CONSULTATION ---
DATE: 08/27/2019 REQUESTING CLINICIAN: Dr. Matute. REASON FOR CONSULTATION: Chronic obstructive pulmonary disease with hypoxemia. HISTORY: Ms Huynh is a 59-year-old with COPD, ongoing tobacco use, morbid obesity with a BMI greater than 45, and COPD, who was brought to the emergency room with a syncopal episode and shortness of breath. The patient has had difficulty with right heart failure in her proBNP is greater than 4000. She underwent a CT scan of the head, which revealed no evidence of acute disease. Chest x-ray revealed mild cardiomegaly with mild vascular congestion. PAST MEDICAL HISTORY: 1. Severe COPD. 2. Chronic hypoxemic respiratory failure. 3. Chronic hypercapnic respiratory failure. 4. Obstructive sleep apnea. 5. Morbid obesity. 6. Type 2 diabetes mellitus. 7. History of heart failure, diastolic suspected. 8. History of stroke. 9. Hypertension. 10. Hypothyroidism. 11. Coronary artery disease. 12. Dyslipidemia. SOCIAL HISTORY: The patient continues to smoke. She denies alcohol or drug use. FAMILY HISTORY: Positive for heart disease. REVIEW OF SYSTEMS: Notable for increasing shortness of breath, increasing lower extremity edema. PHYSICAL EXAMINATION: General: Reveals an obese female with a BMI greater than 45%. Blood pressure 107/72, heart rate 77, respiratory rate 17, oxygen saturation 93% on BiPAP. HEENT: Pupils are equal and reactive. Oropharynx appears clear. Neck: Supple. Chest: Reveals diminished breath sounds bilaterally with prolonged expiratory phase. Cardiac: Distant heart sounsd. Normal S1, S2. Abdomen: Obese and soft. Extremities: Reveal 2+ peripheral edema. LABORATORIES: Arterial blood gas reveals a pH 7.38, pCO2 of 52, PO2 of 61, with a carboxyhemoglobin of 6.5. Sodium 132, potassium 3.3, chloride 89, bicarbonate 26, BUN 25, creatinine 1.5. Glucose 384. IMPRESSION: A 59-year-old with 1. Acute on chronic hypoxemic respiratory failure. 2. Chronic hypercapnic respiratory failure. 3. Acute cor pulmonale with fluid overload. 4. Pulmonary hypertension. 5. Ongoing tobacco use. RECOMMENDATIONS: 1. Continue to educate patient about the importance of smoking cessation. Her time will be limited if she continues to smoke and if she cannot lose weight. 2. Encourage patient to lose weight. 3. Continue antibiotics, bronchodilators, and diuretics as tolerated. cc: Nilo Armas MD
[2019-08-28] MEDS: DUONEB (A & A) INH SCH ×6 (03:56→22:30)
[2019-08-28 05:10] LABS: ALLEN TEST YES; BE 7.3 mmoll (-3.0-3.0); BLOOD TYPE ARTERIAL; HCO3-(ACT) 30.3 mmoll (20.0-26.0); METHB 0.9 % (0.0-1.5); O2(CT) 17.3 mL/dL (15.0-23.0); PO2(98.6) 52 mmHg (60-100); SAMPLE BLOOD; SAO2 90.3 % (95.0-100.0); THB 14.4 g/dL (11.5-17.4); pH(98.6) 7.41 (7.35-7.45)
[2019-08-28 05:33] LABS: MODALITY BI PAP; O2HB 85.8 % (95.0-99.0); PCO2(98.6) 53 mmHg (35-45)
[2019-08-28 06:07] LABS: BASO# 0.03 X1000 (0.0-0.2); BASO% 0.2 % (0.0-0.8); EOS# 0.21 X1000 (0.0-0.7); EOS% 1.7 % (0.0-10.0); HEMATOCRIT 46.5 % (37.0-47.0); IMM GRAN# 0.02 X1000 (0.0-0.04); IMM GRAN% 0.2 % (0.0-0.5); LYMPH# 1.63 X1000 (1.2-3.4); LYMPH% 13.4 % (20.5-51.1); MCH 26.8 PG (27-31); MCHC 30.1 g/dL (33-37); MCV 88.9 FL (81-99); MONO% 4.9 % (1.7-9.3); MPV 11.3 FL (7.4-10.4); NEUT# 9.65 X1000 (1.4-6.5); NEUT% 79.6 % (42.2-75.2); PLT 307 X1000 (130-400); RBC 5.23 XMIL (4.2-5.4); RDW 17.6 % (11.5-14.5); WBC 12.14 X1000 (4.8-10.8)
[2019-08-28 06:35] LABS: ALB/GLOB RATIO 1.4; ALBUMIN 3.6 g/dL (3.5-5.0); CALCIUM 8.6 mg/dL (8.8-10.2); CREATININE 1.6 mg/dL (0.5-0.9); MAGNESIUM 1.7 mg/dL (1.5-2.7); POTASSIUM 2.9 mmol/L (3.5-5.1); TOTAL BILIRUBIN 0.54 mg/dL (0.20-1.00); TOTAL PROTEIN 6.2 g/dL (6.3-8.3)
[2019-08-28 06:37] LABS: HEMOGLOBIN A1C 11.1 % (4.8-6.0)
[2019-08-28 06:46] LABS: FREE T4 1.27 ng/dL (0.93-1.70); TSH 0.81 uIUmL (0.27-4.20)
[2019-08-28] MEDS: GLUCOPHAGE PO SCH ×2 (07:10→17:04)
[2019-08-28] MEDS: PRILOSEC PO SCH (07:10)
--- NOTE | 2019-08-28 07:26 | EKG Report ---
Test Performed on : 08/28/2019 06:37:35 AM Test Reason : chf Blood Pressure : / mmHG Vent. Rate : 062 BPM Atrial Rate : 062 BPM P-R Int : 184 ms QRS Dur : 118 ms QT Int : 528 ms P-R-T Axes : 059 090 -07 degrees QTc Int : 535 ms Normal sinus rhythm. Right bundle branch block T wave abnormality, consider lateral ischemia Abnormal ECG When compared with ECG of 27-AUG-2019 09:49, (Unconfirmed) premature supraventricular complexes. are no longer present Right bundle branch block is now present Confirmed by Savanna ELY, Josiah Muro ([id number]) on 08/28/2019 2:52:29 PM
[2019-08-28] MEDS: HUMULIN R SUBQ SCH ×4 (07:58→20:51)
[2019-08-28] MEDS: PULMICORT INH SCH ×2 (08:06→19:26)
[2019-08-28] MEDS ORDERED: ALDACTONE PO SCH (09:00)
[2019-08-28] MEDS: PATIENT'S OWN MED INH SCH (09:00)
[2019-08-28] MEDS: PLAVIX PO SCH (09:27)
[2019-08-28] MEDS: ASPIRIN PO SCH (09:27)
[2019-08-28] MEDS: LANTUS INSULIN SUBQ SCH (09:27)
[2019-08-28] MEDS: SINGULAIR PO SCH (09:27)
[2019-08-28] MEDS: NEURONTIN PO SCH (09:27)
[2019-08-28] MEDS: ZOLOFT PO SCH (09:28)
[2019-08-28] MEDS: KLOR-CON PO SCH ×2 (09:28→20:09)
[2019-08-28] MEDS: AMARYL PO SCH (09:28)
[2019-08-28] MEDS: RANEXA PO SCH ×2 (09:28→20:09)
[2019-08-28] MEDS: WELCHOL PO SCH ×2 (09:28→20:09)
[2019-08-28] MEDS: LOPRESSOR PO SCH ×2 (09:28→20:10)
[2019-08-28] MEDS: NORVASC PO SCH (09:33)
--- NOTE | 2019-08-28 09:58 | Diag Imaging Result Doc PS360 ---
EXAM: CHEST-2 VIEWS HISTORY: sob TECHNIQUE: Two views COMPARISON: None. FINDINGS: The lungs are well expanded. The heart is mildly enlarged. The vessels are mildly distended. There are no infiltrates. No pleural effusions. IMPRESSION: Mild cardiomegaly with pulmonary edema Electronically signed by Esdras Lares 08/28/2019 9:56 AM
[2019-08-28] MEDS: LASIX IV SCH ×2 (10:45→20:09)
--- NOTE | 2019-08-28 12:55 | CARDIOLOGY CONSULTATION ---
DATE: 08/28/2019 CHIEF COMPLAINT: Syncope. CHRONIC COMPLAINT: Dyspnea. HISTORY: Mrs. Huynh is a 59-year-old, female, who normally follows with Dr. Galvan and Dr. Tomasz Soliman. She presented to the emergency room on 08/27/2019 with a history that on two consecutive days, she had experienced syncope when coughing. She says that the first day, which was 08/26/2019, she was sitting by her bedside, legs were dangling, and she had like 2 or 3 coughing efforts in a row, and then she blacked out. She came back to her senses quickly. The second day, which was yesterday, she was sitting on the toilet, and again she had 3 hacking coughs, and she passed out. At that time, she got worried and called EMS. Upon arrival to the emergency room, they did an EKG that showed sinus rhythm with evidence of right ventricular hypertrophy, a rightward axis, and diffuse T-wave abnormality. Her chest x-ray showed minimal pulmonary edema. A pro BNP was done that shows a value of 4690 pg/mL. Her blood gas shows a pH of 7.38, pCO2 of 52, PO2 of 61. The patient has been admitted for management and evaluation. This morning, she is feeling fine. She has really no new complaints. A carotid ultrasound was done that shows no evidence of any significant stenosis. An echocardiogram shows ejection fraction of 60%. However, the right ventricle is enlarged with depressed function. There is diastolic and systolic septal flattening, suggesting pressure overload. The patient has no chest pain. She also has some swelling of the legs. PAST MEDICAL HISTORY: Positive for coronary heart disease. She has advanced COPD. She is on home oxygen at 4 to 6 L/minute. She has obstructive sleep apnea, and using a Trelegy type of device. Hypertension, hyperlipidemia, diabetes mellitus type 2, tobacco user, chronic kidney disease, chronic pain, and pulmonary hypertension. PAST SURGICAL HISTORY: She had tonsillectomy, section, hysterectomy, hypothyroidism. SOCIAL HISTORY: Single. Disabled. Lives at home. Positive smoker, 1 pack a day. FAMILY HISTORY: Mother with coronary heart disease. Father with coronary heart disease, bypass. ALLERGIES: ESCOBAR inhibitors, codeine, adhesive tape, ceftriaxone, and nylon sutures. HOME MEDICATIONS: Include amlodipine 5 mg daily, aspirin 325 daily, clonazepam 1 mg twice a day, Welchol 625 mg twice a day, clopidogrel 75 mg daily, furosemide 40 mg daily, Cardizem 180 mg daily, glimepiride 2 mg daily, glycopyrrolate formoterol inhaler, hydralazine 25 twice a day, hydrocodone 3 times a day, insulin Lantus 20 units daily, insulin lispro, metformin 500 twice a day, metoprolol 100 twice a day, montelukast 1 tablet daily, nicotine patch 21 mg daily, nitroglycerin 0.4 mg daily, omeprazole 40 mg daily, potassium chloride 20 mEq daily, Ranexa 500 twice a day, sertraline 150 three times a day, spironolactone 25 mg daily. REVIEW OF SYSTEMS: Chronically short of breath, decreased mobility, back pain. PHYSICAL EXAMINATION: Vital Signs: Blood pressure is 107/82, temperature 97.5 degrees, pulse is 78, respirations 22. General: Obese, sitting upright in no distress. Her weight is 281 pounds. BMI is 46.8. Chronically ill, in no distress. Neck: Neck veins are not distended. Chest: Diffusely diminished breath sounds. No rales. Heart: Heart sounds are regular, rhythmic. No gallop or murmur. Abdomen: Obese. Extremities: Trace edema bilaterally. Neurologic: Follows commands. Moves all 4 extremities. LABORATORY DATA: Sodium 139, potassium 2.9, BUN 24, creatinine 1.6. Hemoglobin is 14 grams, hematocrit 46.5, white cell count 12,140. IMPRESSION: 1. Patient with syncope. This is tussive syncope happening on a substrate of pulmonary hypertension and advanced chronic obstructive pulmonary disease. 2. Chronic respiratory failure with carbon dioxide retention, hypercarbic respiratory failure. 3. 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 4. Coronary heart disease. 5. Diabetes mellitus. 6. Morbid obesity. 7. Sleep apnea syndrome. RECOMMENDATION: At this time, I do not think there is anything more to do from Cardiology. She is advised to quit smoking. Follow the Pulmonary consultation recommendations. Cardiac-lainez, I do not suggest to make any changes. cc: Eusebio Hawkins MD [facility]
--- NOTE | 2019-08-28 13:51 | PROGRESS NOTE ---
DATE: 08/28/2019 SUBJECTIVE: The patient seems to be feeling a little bit better today. She is still complaining of some shortness of breath. At this moment she is still hypoxemic. She is on 82% on nasal cannula. She has been using the BiPAP machine on and off. Chest x-ray showed pulmonary edema. Cardiology Department already evaluated this patient. She is getting Lasix twice a day. She has likely diastolic heart failure due to pulmonary hypertension and this is likely due to advanced COPD. She is still smoking. PHYSICAL EXAMINATION: Vital Signs: Temperature 97.9 degrees, pulse 73, respiratory rate 20, blood pressure 108/59, oxygen saturation 82 on a nasal cannula 5 L and 96% on the BiPAP machine. HEENT: Head normocephalic. No trauma. PERRLA. Neck: Supple. She does have some JVD. Central trachea. Chest: Decreased breath sounds globally with some crackles at the bases. No rhonchi. No wheezing. Abdomen: Soft, protuberant, nontender, nondistended. No hepatosplenomegaly. Extremities: She does have edema. No clubbing. No cyanosis. Neurological examination: Patient is awake, alert. She is oriented. LABORATORY: WBC 12.1, hemoglobin 14, hematocrit 46.5, platelets 307,000. Sodium 139, potassium 2.9, chloride 93, bicarbonate 34, BUN 24, creatinine 1.6, glucose 168. Hemoglobin A1c 11.1. Calcium 9.6. AST 9, ALT 10, alkaline phosphatase 105, albumin 3.6. ASSESSMENT AND PLAN: 1. Acute on chronic hypoxemic and hypercarbic respiratory failure. This is multifactorial due to congestive heart failure exacerbation,advanced history of chronic obstructive pulmonary disease in exacerbation at this moment, likely sleep apnea. I will continue with same management for now. Pulmonary Department and Cardiology Department on board. We will continue with diuresis. She is still hypoxemic on nasal cannula. 2. Chronic obstructive pulmonary disease exacerbation. We will continue with the same management for now. She is not wheezing that much today, actually is minimal. Pulmonary Department on board. 3. Acute on chronic diastolic heart failure exacerbation with pulmonary hypertension. Continue with Lasix. Continue with same management. 4. Syncope. This probably is multifactorial. Echocardiogram showed pulmonary hypertension and diastolic dysfunction. Carotid ultrasound within normal limits. 5. Uncontrolled diabetes with hyperglycemia. Her hemoglobin A1c is 11, which means that this patient has not been taking care of her diabetes at home. We will continue with same management. Blood sugar seems to be more stable. We had a large conversation about these results. 6. Obstructive sleep apnea. She uses a CPAP at home. We will continue with the BiPAP in-house. 7. History of coronary artery disease with an apparent right coronary artery occlusion. Continue with same treatment. 8. Tobacco abuse. This patient is still smoking. This patient has been highly advised against tobacco use and we will continue with daily cessation education. 9. Chronic kidney disease stage 3 stable. 10. Morbid obesity. Diet and exercise has been discussed. 11. History of CVA, no new symptoms at this moment. 12. History of bacteremia due to Staphylococcus epidermidis, no symptoms at this moment. We have requested a blood culture. That has been negative so far. That previous culture was from last year on 01/01/2019. I will continue with same management for now. Pulmonary Department and Cardiology Department on board. I think we need to continue with diuretics. Once her oxygen saturation is stable on nasal cannula, likely she can be discharged. cc: Robles Rod MD
[2019-08-28] MEDS: ZITHROMAX 500 MG/NS 500 MG/250 ML IVPB IV SCH (15:13)
--- NOTE | 2019-08-28 19:46 | PULMONOLOGY PROGRESS NOTE ---
DATE: 08/28/2019 SUBJECTIVE: The patient is awake and alert. She reports she feels significantly better. She continues to have some cough with sputum production, but this is decreasing. She continues to have some shortness of breath but this is improved. OBJECTIVE: The patient has been afebrile for the last 24 hours. Blood pressure 107/63, heart rate 65, respiratory rate 15, oxygen saturation 82% when she takes her O2 off. HEENT: Pupils are equal and reactive. Oropharynx appears clear. Neck: Supple. Chest: Reveals diminished breath sounds bilaterally with occasional rhonchi and crackles in the lung bases. Abdomen: Obese and soft. Extremities: Reveal 1+ peripheral. LABORATORIES: Chest x-ray reveals cardiomegaly with mild edema. No change. Arterial blood gas reveals a pH 7.41, pCO2 of 53, PO2 52. Carboxyhemoglobin level has decreased to 4.0. White blood count 12.1, hemoglobin 14.0 platelet count 307,000. Arterial blood gas reveals a pH 7.41, pCO2 of 53, PO2 on BiPAP. IMPRESSION: A 59-year-old with 1. Acute on chronic hypoxemic respiratory failure. 2. Chronic hypercapnic respiratory failure. 3. Acute cor pulmonale. 4. Pulmonary hypertension. 5. Ongoing nicotine addiction and tobacco use. PLAN: 1. Continue to diurese as tolerated. 2. Increase oxygen as needed to maintain saturation 90% or above. 3. Continue to cycle BiPAP at bedtime and p.r.n. 4. Continue to encourage patient to discontinue tobacco and to lose weight. 5. Continue current therapeutic regimen. cc: Nilo Armas MD
[2019-08-28] MEDS: NICODERM PATCH TD SCH (20:09)
[2019-08-28] MEDS: ALDACTONE PO SCH (20:22)
[2019-08-28] MEDS: KLONOPIN PO PRN (22:51)
[2019-08-29] MEDS: DUONEB (A & A) INH SCH ×6 (03:37→22:40)
[2019-08-29 05:24] LABS: ALLEN TEST YES; BE 5.4 mmoll (-3.0-3.0); BLOOD TYPE ARTERIAL; HCO3-(ACT) 28.8 mmoll (20.0-26.0); METHB 0.8 % (0.0-1.5); O2(CT) 17.1 mL/dL (15.0-23.0); PO2(98.6) 53 mmHg (60-100); SAMPLE BLOOD; SAO2 88.2 % (95.0-100.0); SRATE 20 BPM; THB 14.3 g/dL (11.5-17.4)
[2019-08-29 05:25] LABS: PCO2(98.6) 51 mmHg (35-45)
[2019-08-29 05:26] LABS: MODALITY BI PAP
[2019-08-29 06:02] LABS: BASO# 0.04 X1000 (0.0-0.2); BASO% 0.4 % (0.0-0.8); EOS# 0.27 X1000 (0.0-0.7); EOS% 2.4 % (0.0-10.0); HEMATOCRIT 43.5 % (37.0-47.0); HEMOGLOBIN 13.4 g/dL (12.0-16.0); IMM GRAN# 0.02 X1000 (0.0-0.04); IMM GRAN% 0.2 % (0.0-0.5); LYMPH# 2.08 X1000 (1.2-3.4); LYMPH% 18.7 % (20.5-51.1); MCH 27.3 PG (27-31); MCHC 30.8 g/dL (33-37); MCV 88.8 FL (81-99); MONO# 0.53 X1000 (0.11-0.59); MONO% 4.8 % (1.7-9.3); MPV 11.1 FL (7.4-10.4); NEUT# 8.18 X1000 (1.4-6.5); NEUT% 73.5 % (42.2-75.2); PLT 281 X1000 (130-400); RDW 17.5 % (11.5-14.5); WBC 11.12 X1000 (4.8-10.8)
[2019-08-29] MEDS: HUMULIN R SUBQ SCH ×5 (06:17→20:31)
[2019-08-29] MEDS: PRILOSEC PO SCH (06:18)
[2019-08-29] MEDS: GLUCOPHAGE PO SCH ×2 (06:18→16:17)
[2019-08-29 06:20] LABS: ALBUMIN 3.1 g/dL (3.5-5.0); CALCIUM 8.7 mg/dL (8.8-10.2); CREATININE 1.5 mg/dL (0.5-0.9); MAGNESIUM 1.8 mg/dL (1.5-2.7); POTASSIUM 3.3 mmol/L (3.5-5.1); TOTAL BILIRUBIN 0.41 mg/dL (0.20-1.00); TOTAL PROTEIN 6.2 g/dL (6.3-8.3)
--- NOTE | 2019-08-29 07:03 | Diag Imaging Result Doc PS360 ---
EXAM: CHEST-PORTABLE HISTORY: dyspnea TECHNIQUE: Single view COMPARISON: 08/28/2019 FINDINGS: Poor inspiratory effort. The heart is enlarged. The vessels are borderline mildly distended. There are no infiltrates. No effusion identified. IMPRESSION: Cardiomegaly with borderline mild pulmonary edema Electronically signed by Esdras Lares 08/29/2019 7:00 AM
[2019-08-29] MEDS: PULMICORT INH SCH ×2 (07:56→19:55)
[2019-08-29] MEDS: ALDACTONE PO SCH ×2 (08:14→20:31)
[2019-08-29] MEDS: WELCHOL PO SCH ×2 (08:14→20:31)
[2019-08-29] MEDS: ASPIRIN PO SCH (08:14)
[2019-08-29] MEDS: NEURONTIN PO SCH (08:14)
[2019-08-29] MEDS: NORVASC PO SCH (08:14)
[2019-08-29] MEDS: AMARYL PO SCH (08:14)
[2019-08-29] MEDS: PLAVIX PO SCH (08:14)
[2019-08-29] MEDS: SINGULAIR PO SCH (08:14)
[2019-08-29] MEDS: LANTUS INSULIN SUBQ SCH (08:14)
[2019-08-29] MEDS: ZOLOFT PO SCH (08:14)
[2019-08-29] MEDS: LASIX IV SCH ×2 (08:14→20:31)
[2019-08-29] MEDS: LOPRESSOR PO SCH ×2 (08:14→20:31)
[2019-08-29] MEDS: RANEXA PO SCH ×2 (08:14→20:31)
[2019-08-29] MEDS: PATIENT'S OWN MED INH SCH (08:44)
[2019-08-29] MEDS: ZITHROMAX 500 MG/NS 500 MG/250 ML IVPB IV SCH (13:03)
--- NOTE | 2019-08-29 13:08 | PROGRESS NOTE ---
DATE: 08/28/2019 SUBJECTIVE: I have seen and examined Ms. Huynh this morning. Ms. Huynh was actually asking if she could be discharged. Clinically, I thought she could; however, after reviewing her labs, her ABG continues to showed that she is remarkably hypoxemic even on the BiPAP. On the nasal cannular early this morning, she was 83% so I think she would still need to be in the hospital for a few more days. OBJECTIVELY: Vital Signs: Blood pressure is 105/70, pulse of 68, respiration is 21, temperature 98.6 degrees. General: Ms. Huynh is a 59-year-old female. She is in bed. No distress. HEENT: Mucosa is pink and moist. Anicteric. Acyanotic. Neck: Supple. Chest: Air entry is bilaterally reduced. I did not hear any crepitations. No rhonchi. Cardiovascular: Regular rate and rhythm. No murmurs, no rubs, no gallops. Gastrointestinal: Abdomen is soft, protuberant, but nontender. No hepatosplenomegaly. Extremities: No pedal edema. Central Nervous System: Patient is awake, alert, and oriented. There is no focal neurological deficit. LABORATORY DATA: WBC is 11.12, hemoglobin of 13.4, platelet count of 281,000. Chemistry is also reviewed. Creatinine of 1.5 which seems to be patient's baseline. Glucose is slightly elevated. CURRENT MEDICATIONS: Have all been reviewed. No changes. ASSESSMENT: 1. Acute on chronic hypoxemic and hypercarbic respiratory failure. The patient continues to be remarkably hypoxemic even on the BiPAP. I thought she could go home today. However, after reviewing her labs, it is very obvious that she needs more therapy during the hospital course. 2. History of chronic obstructive pulmonary disease with exacerbation on admission improved. 3. Post-tussive syncope. 4. Severe uncontrolled diabetes mellitus with presenting A1c of 11. We will continue titrating her insulin regimen for better glycemic control. 5. Obstructive sleep apnea. Patient is on CPAP at home. 6. Chronic kidney disease stage 3B noted. 7. Right heart failure with moderately depressed right ventricle systolic function on echocardiogram, presumably due to the pulmonary disease. Patient has a PA pressure by Doppler of 55 to 60 mmHg, suggesting moderate pulmonary hypertension. Both Pulmonary Medicine and Cardiology are on board. In general, I think Ms. Huynh is fairly stable. However, she remains remarkably hypoxemic. We will continue titrating her oxygen demands. We will follow up with further recommendations from the subspecialties involved. cc: Thanh Martinez MD [facility]
--- NOTE | 2019-08-29 14:42 | PULMONOLOGY PROGRESS NOTE ---
DATE: 08/29/2019 Ms. Huynh states that she is feeling better today. She actually is asking to be discharged although she remains hypoxemic, having saturations that are dropping to 83 to 85 percent on nasal cannula. She states the cough is much better today as is her shortness of breath. OBJECTIVE: Vital Signs: Blood pressure is 105/70 with a heart rate of 68, respirations are 19 to 21 with O2 saturations have stayed looks like 90 to 92% although she did drop to 83 on nasal cannula and was promptly placed on BiPAP and saturation did recover to 90 to 92 percent. HEENT: Pupils are equal, round, react to light. EOMs are intact. Sclerae anicteric. Head is normocephalic, atraumatic. Mucous membranes are moist. Neck: Supple with trachea midline. Cardiovascular: Regular rate and rhythm. S1 and S2 appreciated. She states calves are nontender. Pulmonary: Breath sounds are diminished throughout. She does continue with some rhonchi that do not clear to cough. She does have crackles in the lung bases. Gastrointestinal: Abdomen is soft, nontender, nondistended with bowel sounds in all 4 quadrants. Extremities: She has bilateral pretibial and pedal edema. LABS: WBC is 11.1 with hemoglobin 13.4, hematocrit 43.5 and platelets 281,000. Sodium 138, potassium 3.3, BUN 27, creatinine 1.5 with a glucose of 181. ABGs pH is 7.4 with a pCO2 of 51, PO2 of 53 and bicarb of 28.8. This was on BiPAP 40% with rate of 20 and 20/8. Sodium 138, potassium 3.3, BUN 27, creatinine 1.5 with a glucose of 181. Chest x-ray revealed cardiomegaly with borderline mild pulmonary edema which has improved slightly from yesterday. IMPRESSION: A 59-year-old with 1. Acute on chronic hypoxemic respiratory failure. 2. Chronic hypercapnic respiratory failure. 3. Acute cor pulmonale. 4. Pulmonary hypertension. 5. Ongoing nicotine and tobacco addiction and tobacco use. PLAN: 1. Continue IV diuresis as tolerated. 2. Titrate oxygen as needed to maintain a saturation of 90 or above. 3. Continue to cycle BiPAP p.r.n. 4. I did discuss with the patient tobacco cessation as well as the importance of weight loss. 5. Continue gastric acid suppression. INCOMPLETE REPORT -- DICTATION ENDS HERE. Dictated by IRA Beard for Nilo Armas MD cc: IRA Beard MD
[2019-08-29] MEDS: NICODERM PATCH TD SCH (20:36)
[2019-08-29] MEDS: KLONOPIN PO PRN (21:25)
[2019-08-30] MEDS: DUONEB (A & A) INH SCH ×6 (03:25→22:42)
[2019-08-30 05:37] LABS: BASO# 0.02 X1000 (0.0-0.2); BASO% 0.2 % (0.0-0.8); EOS# 0.35 X1000 (0.0-0.7); EOS% 3.2 % (0.0-10.0); HEMATOCRIT 44.9 % (37.0-47.0); HEMOGLOBIN 13.7 g/dL (12.0-16.0); IMM GRAN# 0.03 X1000 (0.0-0.04); IMM GRAN% 0.3 % (0.0-0.5); LYMPH# 1.89 X1000 (1.2-3.4); LYMPH% 17.2 % (20.5-51.1); MCH 27.3 PG (27-31); MCHC 30.5 g/dL (33-37); MCV 89.4 FL (81-99); MONO# 0.55 X1000 (0.11-0.59); MPV 11.2 FL (7.4-10.4); NEUT# 8.16 X1000 (1.4-6.5); NEUT% 74.1 % (42.2-75.2); PLT 320 X1000 (130-400); RBC 5.02 XMIL (4.2-5.4); RDW 17.5 % (11.5-14.5)
[2019-08-30 06:01] LABS: ALBUMIN 3.2 g/dL (3.5-5.0); CALCIUM 9.2 mg/dL (8.8-10.2); CREATININE 1.6 mg/dL (0.5-0.9); MAGNESIUM 1.9 mg/dL (1.5-2.7); POTASSIUM 3.6 mmol/L (3.5-5.1); TOTAL BILIRUBIN 0.41 mg/dL (0.20-1.00); TOTAL PROTEIN 6.4 g/dL (6.3-8.3)
[2019-08-30] MEDS: PRILOSEC PO SCH (06:27)
[2019-08-30] MEDS: GLUCOPHAGE PO SCH (06:27)
[2019-08-30] MEDS: HUMULIN R SUBQ SCH ×4 (06:28→21:06)
[2019-08-30] MEDS: PULMICORT INH SCH ×2 (08:06→19:48)
[2019-08-30] MEDS: LOPRESSOR PO SCH ×2 (08:28→21:07)
[2019-08-30] MEDS: LASIX IV SCH ×2 (08:28→21:05)
[2019-08-30] MEDS: RANEXA PO SCH ×2 (08:28→21:06)
[2019-08-30] MEDS: PLAVIX PO SCH (08:29)
[2019-08-30] MEDS: SINGULAIR PO SCH (08:29)
[2019-08-30] MEDS: NORVASC PO SCH (08:29)
[2019-08-30] MEDS: PATIENT'S OWN MED INH SCH (08:29)
[2019-08-30] MEDS: NEURONTIN PO SCH (08:29)
[2019-08-30] MEDS: WELCHOL PO SCH ×2 (08:29→21:06)
[2019-08-30] MEDS: ASPIRIN PO SCH (08:29)
[2019-08-30] MEDS: AMARYL PO SCH (08:29)
[2019-08-30] MEDS: ALDACTONE PO SCH ×2 (08:29→21:06)
[2019-08-30] MEDS: ZOLOFT PO SCH (08:29)
--- NOTE | 2019-08-30 08:54 | Diag Imaging Result Doc PS360 ---
EXAM: CHEST-1 VIEW HISTORY: Hypoxemia TECHNIQUE: Single view COMPARISON: 08/29/2019 FINDINGS: The lungs are well expanded. The heart is mildly prominent. There is mild pulmonary edema. There may be underlying infiltrates in the lung bases. IMPRESSION: Mild interval worsening Electronically signed by Esdras Lares 08/30/2019 8:52 AM
[2019-08-30] MEDS ORDERED: LANTUS INSULIN SUBQ SCH (09:00)
[2019-08-30 09:16] LABS: BLOOD TYPE ARTERIAL; SAMPLE BLOOD
[2019-08-30 09:17] LABS: ALLEN TEST YES; HCO3-(ACT) 29.1 mmoll (20.0-26.0); METHB 0.8 % (0.0-1.5); MODALITY CANNULA; O2(CT) 16.2 mL/dL (15.0-23.0); PCO2(98.6) 49 mmHg (35-45); THB 14.5 g/dL (11.5-17.4); pH(98.6) 7.42 (7.35-7.45)
[2019-08-30 09:18] LABS: O2HB 79.5 % (95.0-99.0); PO2(98.6) 44 mmHg (60-100)
[2019-08-30] MEDS ORDERED: LASIX IV ONE (09:20)
[2019-08-30] MEDS ORDERED: LEVAQUIN 750 MG/D5W 750 MG/150 ML IVPB IV ONE (13:45)
--- NOTE | 2019-08-30 13:58 | PROGRESS NOTE ---
DATE: 08/30/2019 SUBJECTIVE: I have seen and examined Ms. Huynh today. Ms. Huynh refers to be doing better. She was on the BiPAP. ABG early on continues to show remarkable hypoxemia. OBJECTIVE: Vital signs: Blood pressure is 113/85, pulse of 59, respirations 22, temperature 97.5 degrees. The patient is saturating 96% now on BiPAP. General: Ms. Huynh is a 59-year-old female. She is in bed, in no distress. HEENT: Mucosa is pink and moist. Anicteric. Acyanotic. She is on BiPAP. Chest: Air entry is bilaterally reduced. A few crackles in the posterior lung anglin. Cardiovascular: Regular rate and rhythm. There is no murmurs, no rubs, no gallops. Abdomen: Soft, is protuberant, but nontender. Bowel sounds present. There is no hepatosplenomegaly. Extremities: No pedal edema. INSURANCE ACCOUNT ASSISTANT: Patient is awake, alert, oriented. There is no focal deficit. LABORATORY DATA: WBC is 11.00, hemoglobin is 13.7, platelet count of 322,000. Chemistry is also reviewed. Creatinine is 1.6, slightly up from yesterday at 1.5. Rest of chemistry is unremarkable. The patient I's and O's show urine output was 3550. She is currently negative balance of 1324. A chest x-ray shows mild interval worsening. ASSESSMENT: 1. Acute on chronic hypoxemic and hypercarbic respiratory failure. The patient continues to be remarkably hypoxemic on the ABG. We will continue with the BiPAP therapy. 2. Chronic obstructive pulmonary disease with exacerbation. Patient is on standard of care. 3. Post tussive syncope, resolved. 4. Severe uncontrolled diabetes mellitus with presenting A1c of 11. Patient is on insulin regimen. 5. Obstructive sleep apnea with obesity hypoventilation syndrome. 6. Chronic kidney disease stage IIIB. 7. Cor pulmonale with depressed right ventricle function on echocardiogram, associated with pulmonary hypertension. PLAN: In general, we will continue with the BiPAP therapy. Patient's ABG shows PO2 of 42 this morning. This was on a nasal cannula at 40%. She has been switched to BiPAP. We will continue with the current management. cc: Thanh Martinez [facility]
[2019-08-30] MEDS: SOLU-MEDROL IV SCH (14:08)
[2019-08-30] MEDS: ZITHROMAX 500 MG/NS 500 MG/250 ML IVPB IV SCH (16:17)
[2019-08-30] MEDS: HUMALOG SUBQ SCH (16:18)
--- NOTE | 2019-08-30 16:40 | PULMONOLOGY PROGRESS NOTE ---
DATE: 08/30/2019 SUBJECTIVE: The patient is awake and alert. She states that she does feel better today. She continues on BiPAP. OBJECTIVE: vital signs: Blood pressure is 121/81 with a heart rate of 60, respirations are 20, and temperature is 98.5 degrees with O2 saturations that are 90 percent to 92 percent. Eyes: Pupils are equal, round, react to light. Sclerae anicteric. neck: Neck is supple with trachea midline. Cardiovascular: Regular rate and rhythm. No murmurs. S1 and S2 appreciated. Pulmonary: She has bibasilar crackles. Chest rises and falls symmetric with respiration. Gastrointestinal: Abdomen is soft, nondistended, and nontender with bowel sounds in all 4 quadrants. Extremities: No clubbing, cyanosis, or edema. Neurologic: She is alert and oriented. LABORATORIES: WBC is 11 with hemoglobin 13.7, hematocrit 44.9, and platelets of 320,000. Sodium 139, potassium 3.6, BUN 27, creatinine 1.6 with a glucose of 156. ABGs: pH is 7.42 with a pCO2 of 49, pO2 of 44, and bicarb of 29.1. These are on 40 percent nasal cannula. STUDIES: Chest x-ray: Lungs are well expanded. Heart is mildly prominent. There is mild pulmonary edema. There may be underlying infiltrates in the lung bases. ASSESSMENT: This is a 59-year-old female with: 1. Acute on chronic hypoxemic respiratory failure. 2. Chronic hypercapnic respiratory failure. 3. Obstructive sleep apnea with obesity hypoventilation syndrome. 4. Cor pulmonale with depressed right ventricular function associated with pulmonary hypertension on echocardiogram. 5. Ongoing nicotine and tobacco addiction and tobacco use. PLAN: 1. We will continue IV diuresis. 2. Continue to titrate oxygen to maintain a saturation of 90 percent or above that. 3. Continue to cycle BiPAP p.r.n. 4. We will continue to discuss tobacco cessation as well as weight loss. 5. Continue gastric acid suppression. Dictated by IRA Beard for Nilo Armas MD cc: IRA Beard MD
[2019-08-30] MEDS: NICODERM PATCH TD SCH (21:05)
[2019-08-30] MEDS: KLONOPIN PO PRN (21:06)
[2019-08-31] MEDS: DUONEB (A & A) INH SCH ×6 (03:31→23:10)
[2019-08-31 06:04] LABS: ALLEN TEST YES; BE 5.5 mmoll (-3.0-3.0); BLOOD TYPE ARTERIAL; O2(CT) 17.3 mL/dL (15.0-23.0); PO2(98.6) 62 mmHg (60-100); SAMPLE BLOOD; SAO2 94.5 % (95.0-100.0); THB 13.5 g/dL (11.5-17.4); pH(98.6) 7.37 (7.35-7.45)
[2019-08-31 06:07] LABS: MODALITY BI PAP; PCO2(98.6) 56 mmHg (35-45)
[2019-08-31] MEDS: HUMULIN R SUBQ SCH ×4 (06:19→20:54)
[2019-08-31] MEDS: SOLU-MEDROL IV SCH ×2 (06:19→20:54)
[2019-08-31] MEDS: PRILOSEC PO SCH (06:20)
--- NOTE | 2019-08-31 08:03 | Diag Imaging Result Doc PS360 ---
EXAM: CHEST-PORTABLE - 08/31/2019 HISTORY: dyspnea TECHNIQUE: Portable chest COMPARISON: 08/30/2019 FINDINGS: There is stable borderline cardiomegaly. There are mild perihilar infiltrates or edema similar to prior. There is no substantial pleural effusion or pneumothorax identified. IMPRESSION: Mild perihilar infiltrates or edema similar to prior. Electronically signed by Danny De Souza 08/31/2019 8:00 AM
[2019-08-31] MEDS: PULMICORT INH SCH ×2 (08:14→19:57)
[2019-08-31] MEDS: NORVASC PO SCH (08:21)
[2019-08-31] MEDS: SINGULAIR PO SCH (08:21)
[2019-08-31] MEDS: ASPIRIN PO SCH (08:21)
[2019-08-31] MEDS: RANEXA PO SCH ×2 (08:21→20:49)
[2019-08-31] MEDS: LOPRESSOR PO SCH ×2 (08:21→20:49)
[2019-08-31] MEDS: ZOLOFT PO SCH (08:21)
[2019-08-31] MEDS: PLAVIX PO SCH (08:21)
[2019-08-31] MEDS: WELCHOL PO SCH ×2 (08:21→20:49)
[2019-08-31] MEDS: NEURONTIN PO SCH (08:21)
[2019-08-31] MEDS: LASIX IV SCH ×2 (08:22→20:48)
[2019-08-31] MEDS: ALDACTONE PO SCH ×2 (08:22→20:50)
[2019-08-31] MEDS: PATIENT'S OWN MED INH SCH (08:23)
[2019-08-31] MEDS: HUMALOG SUBQ SCH ×3 (08:23→16:24)
[2019-08-31] MEDS ORDERED: LANTUS INSULIN SUBQ SCH (09:00)
--- NOTE | 2019-08-31 11:06 | PROGRESS NOTE ---
DATE: 08/31/2019 SUBJECTIVE: I have seen and examined Ms. Huynh this morning. Ms. Huynh refers to be doing well. She was requesting to know when she could be discharged. She is currently on the BiPAP. She is saturating 95%. OBJECTIVE: Current Vital Signs: Blood pressure is 106/69, pulse of 63, respirations are 20, temperature of 97.5 degrees. General Examination: Ms. Huynh is a 59-year-old, female. She is in bed. She is on a BiPAP. HEENT: Mucosa is pink and moist. Anicteric. Acyanotic. Neck: Supple. Chest: Good air entry bilaterally. There were no crepitations, no rhonchi. Cardiovascular: Regular rate and rhythm. There are no murmurs, no rubs, no gallops. GI: Abdomen is soft. Distended but nontender. Bowel sounds present. No hepatosplenomegaly. Extremities: No pedal edema. GLOBAL SOURCING MANAGER: The patient is awake, alert, oriented. There is no focal deficit. Laboratory Data: Glucose is 282. There are no other labs for this morning. Medications have all been reviewed. No changes. ABGs show pH of 7.37, pCO2 of 65, PO2 of 62. A chest x-ray this morning shows mild perihilar infiltrates or edema similar to prior. ASSESSMENT: 1. Acute on chronic hypoxemic and hypercarbic respiratory failure. The patient is currently on a BiPAP. Arterial blood gases look much better than yesterday. We are going to transition her to other modalities of oxygenation to see if she is able to maintain adequate saturation. 2. Chronic obstructive pulmonary disease with moderate exacerbation. Patient is on standard of care. 3. Positive syncope, resolved. 4. Severe uncontrolled diabetes mellitus with presenting A1c of 11. The patient is on insulin regimen. Glucose level is a lot better. 5. Obstructive sleep apnea with overlap obesity hypoventilation syndrome. The patient is actually on a CPAP at home and also other supplemental oxygen devices. 6. Chronic kidney disease stage IIIB, stable. 7. Cor pulmonale with depressed right ventricular function on echocardiogram associated with pulmonary hypertension noted. PLAN: In general, I think Ms. Huynh is fairly stable. ABGs look much better today. She is going to be transitioned to nasal cannula. We will continue monitoring her oxygen levels to see if she will be stable to be discharged. cc: Thanh Martinez MD
[2019-08-31] MEDS ORDERED: LEVAQUIN 750 MG/D5W 750 MG/150 ML IVPB IV SCH (14:00)
[2019-08-31] MEDS: ZITHROMAX 500 MG/NS 500 MG/250 ML IVPB IV SCH (16:25)
--- NOTE | 2019-08-31 17:50 | PULMONOLOGY PROGRESS NOTE ---
DATE: 08/31/2019 SUBJECTIVE: Ms. Huynh is doing well. She is actually asking when she is going to be able to go home. She has been transitioned from BiPAP to high-flow nasal cannula per primary care team and she is doing well. PHYSICAL EXAMINATION: Vital Signs: Blood pressure 93/59 with a heart rate of 62, respirations 18, temperature is 97.6 degrees with O2 saturations that are 95% on high-flow nasal cannula. HEENT: Pupils are equal, round, react to light. EOMs are intact sclerae anicteric. Head is normocephalic, atraumatic. Mucous membranes are moist. Neck: Supple with trachea midline. Cardiovascular: Regular rate and rhythm. S1, S2 appreciated. No murmur. Pulmonary: She has some rhonchi that did clear to cough. Chest rises and falls symmetric with respiration. Gastrointestinal: Abdomen is soft, nontender, nondistended with bowel sounds in all 4 quadrants. Extremities: No clubbing, cyanosis, or edema. Neurologic: She is alert and oriented x3. IMAGING: Chest x-ray reveals mild perihilar infiltrates or edema similar to prior. ASSESSMENT: A 59-year-old female with: 1. Acute on chronic hypoxemic respiratory failure. 2. Chronic hypercapnic respiratory failure. 3. Obstructive sleep apnea with obesity, hypoventilation syndrome. 4. Cor pulmonale with depressed right ventricular function associated with pulmonary hypertension on echocardiogram. 5. Ongoing nicotine and tobacco addiction and tobacco use. PLAN: 1. Continue IV diuresis. The patient is cumulatively -1454 mL. 2. Continue to titrate oxygen to maintain a saturation of 90%. 3. With continue to cycle BiPAP and high-flow O2 to maintain a saturation of 90% or better. 4. Continue to discuss tobacco cessation as well as weight loss. 5. Continue gastric acid suppression. Dictated by IRA Beard for Nilo Armas MD cc: IRA Beard MD
[2019-08-31] MEDS: NICODERM PATCH TD SCH (20:50)
[2019-08-31] MEDS: KLONOPIN PO PRN (21:08)
--- NOTE | 2019-09-01 04:15 | PULMONOLOGY PROGRESS NOTE ---
DATE: 08/30/2019 SUBJECTIVE: Ms. Huynh states that she feels better today. INCOMPLETE DICTATION--ENDS HERE Dictated by IRA Beard for Nilo Armas MD cc: IRA Beard MD
[2019-09-01] MEDS: DUONEB (A & A) INH SCH ×3 (04:59→11:19)
[2019-09-01 06:05] LABS: ALLEN TEST YES; BE 2.7 mmoll (-3.0-3.0); BLOOD TYPE ARTERIAL; PCO2(98.6) 50 mmHg (35-45); PO2(98.6) 86 mmHg (60-100); SAMPLE BLOOD; pH(98.6) 7.37 (7.35-7.45)
[2019-09-01 06:07] LABS: MODALITY BI PAP
[2019-09-01 06:21] LABS: ALBUMIN 3.7 g/dL (3.5-5.0); CALCIUM 9.2 mg/dL (8.8-10.2); CREATININE 1.6 mg/dL (0.5-0.9); PHOSPHORUS 3.8 mg/dL (2.7-4.5); POTASSIUM 4.8 mmol/L (3.5-5.1)
--- NOTE | 2019-09-01 06:30 | Diag Imaging Result Doc PS360 ---
EXAM: CHEST-PORTABLE 09/01/2019 HISTORY: dyspnea TECHNIQUE: AP portable at 0535 COMMENT: The inspiration is less optimal than on 08/31/2019. There is cardiomegaly. The pulmonary vascular prominence present on the previous study has improved somewhat. IMPRESSION: Improved pulmonary vascular engorgement. Cardiomegaly. Electronically signed by Yunior Garcia 09/01/2019 6:28 AM
[2019-09-01] MEDS: HUMULIN R SUBQ SCH ×2 (06:38→11:17)
[2019-09-01] MEDS: SOLU-MEDROL IV SCH ×2 (06:39→08:33)
[2019-09-01] MEDS: PRILOSEC PO SCH (06:40)
[2019-09-01 07:43] VITALS: BP 146/105
[2019-09-01] MEDS: PULMICORT INH SCH (08:08)
[2019-09-01] MEDS: LASIX IV SCH (08:32)
[2019-09-01] MEDS: HUMALOG SUBQ SCH ×2 (08:32→11:16)
[2019-09-01] MEDS: PLAVIX PO SCH (08:33)
[2019-09-01] MEDS: WELCHOL PO SCH (08:33)
[2019-09-01] MEDS: ASPIRIN PO SCH (08:33)
[2019-09-01] MEDS: ZOLOFT PO SCH (08:33)
[2019-09-01] MEDS: NEURONTIN PO SCH (08:33)
[2019-09-01] MEDS: ALDACTONE PO SCH (08:33)
[2019-09-01] MEDS: SINGULAIR PO SCH (08:33)
[2019-09-01] MEDS: LOPRESSOR PO SCH (08:33)
[2019-09-01] MEDS: RANEXA PO SCH (08:33)
[2019-09-01] MEDS: NORVASC PO SCH (08:33)
[2019-09-01] MEDS: PATIENT'S OWN MED INH SCH (08:34)
[2019-09-01] MEDS ORDERED: LANTUS INSULIN SUBQ SCH (09:00)
--- NOTE | 2019-09-01 12:08 | DISCHARGE SUMMARY ---
ADMISSION DATE: 08/27/2019 DISCHARGE DATE: 09/01/2019 DISPOSITION: Home. FOLLOW-UP: 1. Dr. Wolf. 2. [facility]. 3. [facility]. CONSULTATION DURING ADMISSION: Pulmonary Medicine was consulted. Patient was seen by Dr. Armas. INVASIVE PROCEDURES DONE DURING ADMISSION: None. IMAGING STUDIES OF SIGNIFICANCE: A CT scan of the head and cervical spine was done which showed no acute intracranial pathology, and no evidence of acute bony abnormality in the cervical spine. A chest x-ray initially did show mild pulmonary edema. Carotid Doppler's did not show any flow- limiting lesions. Multiple chest x-rays were done subsequently. An echocardiogram did show ejection fraction of 55% to 60%. There was moderately enlarged right atrium and right ventricle with moderately depressed function. ADMISSION DIAGNOSES: 1. Acute on chronic hypoxemic and hypercarbic respiratory failure. 2. Chronic obstructive pulmonary disease exacerbation. 3. Acute on chronic right heart failure. 4. Syncope. 5. Chronic obstructive pulmonary disease. DIAGNOSES AT TIME OF DISCHARGE: 1. Acute on chronic hypoxemic and hypercarbic respiratory failure. Patient needed BiPAP therapy during the hospital course, and is currently transitioning to nasal cannula oxygenation. 2. Severe chronic obstructive pulmonary disease with moderate exacerbation on admission improved. 3. Post tussive syncope. 4. Severe uncontrolled diabetes mellitus with presenting A1c of 11. 5. Obstructive sleep apnea with overlapping obesity and hypoventilation syndrome. 6. Chronic kidney disease stage 3B. 7. Cor pulmonale with depressed right ventricular function on echocardiogram associated with pulmonary hypertension. 8. History of coronary artery disease. 9. Hypertension. 10. Dyslipidemia. DISCHARGE MEDICATIONS: 1. Clopidogrel 75 mg p.o. daily. 2. Omeprazole 40 mg p.o. daily. 3. Spironolactone 25 mg p.o. daily. 4. 500 mg b.i.d. 5. Klonopin 1 mg b.i.d. 6. Glimepiride 2 mg p.o. b.i.d. daily. 7. Welchol 625 b.i.d. 8. Fexofenadine 180 mg p.o. p.r.n. 9. Gabapentin 300 mg p.o. daily. 10. Metoprolol 100 mg b.i.d. 11. Amlodipine 5 mg p.o. daily. 12. Insulin 20 units subcutaneous daily. 13. Furosemide 40 mg p.o. daily. 14. Hydralazine 25 mg b.i.d. 15. Insulin glargine 25 units daily. 16. Levofloxacin 500 p.o. daily. 17. Prednisone 20 mg p.o. daily. PRESENTING COMPLAINT: Shortness of breath. HISTORY OF PRESENTING COMPLAINT: Ms. Huynh is a 59-year-old female who has a history of severe COPD on home 2 oxygen, coronary artery disease, hypertension, and known case of right heart failure, who came in after a syncopal spell after coughing multiple times. Upon presenting to the emergency room, she was evaluated. She was also found to be remarkably hypoxemic with initial O2 saturation down to 82. She was subsequently admitted for further medical care. HOSPITAL COURSE: Ms. Huynh was admitted to the step-down unit, and was started on BiPAP therapy. The initial chest x-ray did show some pulmonary congestion. She was started on IV diuretic therapy, antibiotics, steroids, and bronchodilation therapy. Throughout the hospital course, Ms Huynh progressively improved. Her initial pCO2 was 52 and even 44 at some point. However, for the past 2 days, her pCO2 was in the 50s, but the PO2 has improved to 62 and 86 today. She is breathing a whole lot better. She refers to be back to her baseline. We think she is stable enough to be discharged. Continue with her oxygen therapy. Use CPAP at night. Follow up with her primary care doctor as well as her welding inspector in [place]. The patient has been advised on weight reduction management. TIME SPENT: Discharge time is 35 minutes. cc: Thanh Martinez MD MTDD
== END 2019-09-01 12:15 | disposition home health service (06) | DRG 190 ==
LOC: ED 09:33 → SUATTDRO 13:43 → 2N 13:43
PROVIDERS: ATTEND Internal Medicine